=== PATIENT | female | born 1965 | race Caucasian/White ===

== ENCOUNTER → 2018-01-21 11:10 | Outpatient (CLI) | payer OTHER, SELFPAY ==
[2018-01-21 12:11] LABS: Basophil% 0.7 % (0-1); Eosinophils% 2.4 % (0-5); Hematocrit 42.6 % (37-47); Hemoglobin 14.4 g/dl (12.0-15.0); Lymphocyte % 31.2 % (19-41); Mean Corp Hgb Conc 33.8 g/gl (32-36); Mean Corpuscular Hgb 29.1 pg (27.0-32.0); Mean Corpuscular Volume 86.1 fL (81-99); Mean Platelet Vol. 10.5 fl (6.2-12.0); Monocyte% 6.4 % (0-10); Neutrophil # 4.13 X10^3/uL (2.7-7.7); Neutrophil % 59.2 % (47-70); Platelet Count 284 K/mm3 (150-450); RBC Distribution Width CV 12.5 % (11.6-14.6); RBC Distribution Width SD 38.6 fl (35.1-43.9); Red Blood Count 4.95 M/mm3 (4.2-5.4)
[2018-01-21 12:12] LABS: Absolute Lymphocyte Count 2.18 X10^3/ul (0.83-4.51); Absolute Neutrophil Count 4.1 X10^3/uL (2.0-7.7); Basophil# 0.05 X10^3/uL; Eosinophil# 0.17 X10^3/uL; Lymphocyte # 2.18 X10^3/ul (4.0); Monocyte# 0.45 X10^3/uL
[2018-01-21 12:17] LABS: POSITIVE COUNT NO; POSITIVE DIFFERENTIAL NO; POSITIVE MORPHOLOGY NO
[2018-01-21 12:37] LABS: Anion Gap 8 (5-15); BUN 10 mg/dL (7-18); BUN/Creat Ratio 14.5 RATIO (10-20); Calcium,Total 9.2 mg/dL (8.5-10.1); Chloride 102 mmol/L (98-107); Cholesterol 250 mg/dL (200); Creatinine, Serum 0.69 mg/dL (0.55-1.02); EST Glomerular Filtration Rate 94 mL/min (>60); Est Glom Filt Rate - Afr Amer 114 mL/min (>60); Glucose 122 mg/dL (74-106); High Density Lipoprotein 61 mg/dL; Potassium 3.7 mmol/L (3.5-5.1); Sodium Level 141 mmol/L (136-145); Thyroid Stim Hormone (TSH) 1.16 uIU/mL (0.358-3.74); Triglycerides 153 mg/dL; Very Low Density Lipoprotein 31 mg/dL (5-40)
--- NOTE | 2018-01-21 16:53 | BI_ITS ---
MAMMOGRAPHY - BILATERAL SCREENING REASON FOR EXAM: Female, 52 years old. Routine annual screening examination. PERTINENT HISTORY: Non-contributory. History of colorectal carcinoma. TECHNIQUE: Digital bilateral breast rei (3D mammographic acquisition) in the CC and MLO projections. 2-D mediolateral oblique (MLO) and craniocaudad (CC) views of both breasts were obtained. CAD: Full Field Digital Mammography with Computer Added Detection was performed. COMPARISON: Comparison is made with prior study dated November 29, 2016 and September 26, 2015. FINDINGS: Breast Composition: The breasts are heterogeneously dense, which may obscure small masses. There are no dominant masses or suspicious calcifications. No other significant abnormalities are identified. There has been no significant change since the prior study. BI/SCREENING MAMM (CAD), BILAT IMPRESSION: Stable bilateral screening mammogram. Yearly follow-up mammogram recommended. (A) ASSESSMENT CATEGORY: BIRADS Category 1: Negative. A letter regarding these results will be sent to the patient by the facility within 30 days. Approximately 10% of breast cancers are not detected by mammography. A normal mammogram should not delay biopsy of a clinically suspicious abnormality. [id number] Electronically Signed: Darell Hernandez MD at 11:08 EDT Tel [phone], Service support ,
[2018-01-24 07:49] LABS: Carcinoembryonic Antigen 1.7 ng/mL (0.0-4.7)
== END ==
PROVIDERS: Family Provider Family Medicine; PCP Family Medicine; Visit Provider Family Medicine
DX: Z00.00 Encounter for general adult medical examination without abnormal findings (principal); Z12.31 Encounter for screening mammogram for malignant neoplasm of breast; C19 Malignant neoplasm of rectosigmoid junction; M17.12 Unilateral primary osteoarthritis, left knee
CPT/HCPCS: 36415; 77063; 77067; 80048; 80061; 82378; 84443; 85025

== ENCOUNTER → 2018-06-20 16:13 | Outpatient (CLI) | payer OTHER, SELFPAY ==
--- NOTE | 2018-06-20 16:20 | MRI_ITS ---
STUDY: MRI LEFT KNEE REASON FOR EXAM: Female, 53 years old. Knee pain and limited range of motion. Castro's cyst. Surgery 2006 for meniscal tear. TECHNIQUE: Standardized fat and water weighted pulse sequences were obtained in all 3 orthogonal planes. COMPARISON: None. FINDINGS: There is moderate narrowing of the medial compartment. Mild medial spurring is present. Patient is status post partial meniscectomy by history. Signal abnormality in the outer third of the meniscus extending to the superior articular surface is suspicious for a meniscal tear measuring approximately 1 cm. There is diffuse, greater than 50% thickness articular cartilage loss of the medial femorotibial compartment. Normal medial femoral condyle and tibial plateau. Normal medial collateral ligamentous complex (MCL). Normal distal semimembranosus, gracilis and semitendinosus tendons. Normal lateral meniscus. Normal hyaline cartilage of the lateral femorotibial compartment. Normal lateral femoral condyle and tibial plateau. Normal proximal tibiofibular articulation. Normal lateral collateral (fibular) ligament. Normal popliteus tendon. Normal biceps femoris tendon. There is edema and loss of definition of the of the ACL fascicles, producing a celery stick appearance proximally, with preservation of the continuity of fibers, consistent with mucoid cystic degeneration. Less likely, this may represent ACL sprain. Normal posterior cruciate ligament (PCL). There is mild medial patellar subluxation. Mild degenerative spurring of the patella and anterior femur is noted. There is mild fissuring of the trochlear cartilage. Normal medial and lateral patellar retinaculum. Normal quadriceps tendon. Normal patellar tendon. Normal Hoffa's fat pad. There is a moderate joint effusion. There is a 1.8 x 3.1 x 7.3 cm septated popliteal cyst. The soft tissues are unremarkable. The otherwise visualized osseous structures are unremarkable. MRI/Lower Ext Joint Only (Routine) IMPRESSION: 1. Small medial meniscal tear superimposed on prior partial meniscectomy. 2. Mucoid change of the ACL is favored over sprain. 3. Large popliteal cyst. 4. Joint effusion. 5. Fissuring of the trochlear cartilage. 6. 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 Electronically Signed: Alicja Fonseca MD at 22:02 EST Tel , Service support ,
== END ==
PROVIDERS: Family Provider Family Medicine; PCP Family Medicine; Referring Provider Chiropractor; Visit Provider Chiropractor
DX: M71.22 Synovial cyst of popliteal space [Baker], left knee (principal)
CPT/HCPCS: 73721

== ENCOUNTER → 2018-08-25 15:42 | Outpatient (CLI) | payer OTHER, SELFPAY | PROVIDERS: Family Provider Family Medicine; PCP Family Medicine; Referring Provider Family Medicine; Visit Provider Family Medicine | DX: R39.9 Unspecified symptoms and signs involving the genitourinary system (principal) | CPT/HCPCS: 87086; 87088; 87186 ==

== ENCOUNTER → 2018-10-02 16:18 | Outpatient (CLI) | payer OTHER, SELFPAY ==
--- NOTE | 2018-10-02 16:32 | MRI_ITS ---
STUDY: MRI BRAIN WITH AND WITHOUT CONTRAST REASON FOR EXAM: Female, 53 years old. Migraine with slurred speech TECHNIQUE: Standardized multiplanar fat and water weighted pulse sequences were obtained. Gadavist 9 IV was administered for the contrast portion of the examination. COMPARISON: MRI of the brain on January 28, 2014 FINDINGS: Moderate periventricular white matter disease without evidence for acute infarct. There appears to be an old lacunar infarct in the body of the right caudate nucleus. There is also suggestion of subtle ischemic changes within the left ventrolateral aspect of the midbrain or cerebral peduncle Normal bilateral basal ganglia. Normal thalami. There is no extra-axial fluid accumulation. Normal flow voids within the major intracranial circulation suggesting patency by spin echo criteria except for hypoplastic right vertebral artery. Normal venous enhancement. There is no enhancing intra-axial or extra-axial abnormality. Normal sella turcica, pituitary gland, infundibular stalk, optic chiasm and hypothalamus. Normal tectal plate and pineal gland. Normal solitario and medulla. Normal cerebellum. Normal basal cisterns. Normal bilateral temporal bones. Normal bilateral internal auditory canals. No demonstrated orbital abnormality, within the constraints of a routine brain study. Small mucous retention cyst in right maxillary sinus. Minor mucosal thickening of the ethmoid air cells. Normal calvarium and skull base. Normal visualized soft tissue structures. Normal visualized upper cervical spine. Findings are similar to that seen previously except for the lesion in the left cerebral peduncle MRI/Brain W/WO Contrast IMPRESSION: Moderate periventricular white matter disease of indeterminate significance although likely small vessel ischemic changes in patient of this age although demyelinating disease not entirely excluded.. No evidence for acute infarct. Apparent old lacunar infarct of the body of the right caudate nucleus. Probable chronic ischemic changes in the left cerebral peduncle No enhancing lesions following contrast administration Electronically Signed: Theron Concepcion MD at 23:57 EST , Service support ,
== END ==
PROVIDERS: Family Provider Family Medicine; PCP Family Medicine; Referring Provider Family Medicine; Visit Provider Family Medicine
DX: R47.89 Other speech disturbances (principal)
CPT/HCPCS: 70553; A9585

== ENCOUNTER → 2018-10-29 12:20 | Outpatient (CLI) | payer OTHER, SELFPAY ==
[2018-10-29 12:48] LABS: Mucous, Urine 0 SEEN /hpf (<or=2+)
[2018-10-29 13:25] LABS: Color, Urine Amber (Yellow); Glucose, Dipstick Normal (Normal); Ketone-Dipstick Negative (Negative); Leukocyte Esterase-Dipstick 500 /ul (Negative); Nitrite-Dipstick Positive (Negative); Occult Blood-Urine 150 /ul (Negative); Protein-Dipstick 100 mg/dl (Negative); Urine Clarity Sl. Cloudy (Clear); Urine Urobilinogen 8 mg/dl (Normal)
[2018-10-29 13:27] LABS: Urine Bilirubin Dipstick 3 mg/dL (Negative)
[2018-10-29 13:32] LABS: Bacteria 1+ /hpf (None Seen); Red Blood Cells-Urine 10-25 SEEN /hpf (0-5); Squamous Epithelial Cells - UA 0-5 SEEN /hpf (5-10); White Blood Cells 25-50 SEEN /hpf (0-5)
== END ==
PROVIDERS: Family Provider Family Medicine; PCP Family Medicine; Referring Provider Nurse Practitioner Family; Visit Provider Nurse Practitioner Family
DX: R39.9 Unspecified symptoms and signs involving the genitourinary system (principal)
CPT/HCPCS: 81001

== ENCOUNTER → 2018-12-22 | Outpatient (CLI) | payer OTHER, SELFPAY | END | disposition home or self-care (01) | PROVIDERS: Family Provider Family Medicine; PCP Family Medicine; Referring Provider Nurse Practitioner Family; Visit Provider Nurse Practitioner Family | DX: R35.0 Frequency of micturition (principal) | CPT/HCPCS: 87086 ==

== ENCOUNTER → 2019-01-20 | Outpatient (CLI) | payer OTHER, SELFPAY ==
[2019-01-20 10:04] LABS: Absolute Lymphocyte Count 2.62 X10^3/ul (0.83-4.51); Absolute Neutrophil Count 3.7 X10^3/uL (2.0-7.7); Basophil# 0.04 X10^3/uL; Basophil% 0.6 % (0-1); Eosinophil# 0.12 X10^3/uL; Eosinophils% 1.7 % (0-5); Hematocrit 40.2 % (37-47); Hemoglobin 13.3 g/dl (12.0-15.0); Lymphocyte # 2.62 X10^3/ul (4.0); Lymphocyte % 37.8 % (19-41); Mean Corp Hgb Conc 33.1 g/gl (32-36); Mean Corpuscular Hgb 28.7 pg (27.0-32.0); Mean Corpuscular Volume 86.8 fL (81-99); Mean Platelet Vol. 10.6 fl (6.2-12.0); Monocyte# 0.45 X10^3/uL; Monocyte% 6.5 % (0-10); Neutrophil # 3.71 X10^3/uL (2.7-7.7); Neutrophil % 53.4 % (47-70); Platelet Count 289 K/mm3 (150-450); RBC Distribution Width CV 12.5 % (11.6-14.6); RBC Distribution Width SD 38.8 fl (35.1-43.9); Red Blood Count 4.63 M/mm3 (4.2-5.4); White Blood Count 6.9 K/mm3 (4.4-11.0)
[2019-01-20 10:07] LABS: POSITIVE COUNT NO; POSITIVE DIFFERENTIAL NO; POSITIVE MORPHOLOGY NO
[2019-01-20 11:06] LABS: ALB/GLOB Ratio 1.6 RATIO (0.9-2.4); AST(SGOT) 16 U/L (15-37); Alanine Aminotransfer ALT/SGPT 28 U/L (13-56); Albumin, Serum 4.2 g/dL (3.2-5.0); Alkaline Phosphatase 126 U/L (45-117); Anion Gap 4 (5-15); BUN 13 mg/dL (7-18); BUN/Creat Ratio 17.5 RATIO (10-20); Chloride 102 mmol/L (98-107); Cholesterol 251 mg/dL (200); Creatinine, Serum 0.74 mg/dL (0.55-1.02); EST Glomerular Filtration Rate 86 mL/min (>60); Est Glom Filt Rate - Afr Amer 104 mL/min (>60); Ferritin 106 ng/mL (8-252); Globulin 2.7 g/dL (2.2-4.2); Glucose 125 mg/dL (74-106); High Density Lipoprotein 65 mg/dL; Potassium 4.1 mmol/L (3.5-5.1); Protein, Total 6.9 g/dL (6.4-8.2); Sodium Level 137 mmol/L (136-145); Thyroid Stim Hormone (TSH) 1.68 uIU/mL (0.358-3.74); Triglycerides 150 mg/dL; Very Low Density Lipoprotein 30 mg/dL (5-40)
[2019-01-20 12:39] LABS: Microalbumin:Creatinine Ratio 97.6 mg/g CRE (<30 mg/g CRE)
== END | disposition home or self-care (01) ==
LOC: MFPLAB 08:02
PROVIDERS: Family Provider Family Medicine; PCP Family Medicine; Referring Provider Family Medicine; Visit Provider Family Medicine
DX: D50.9 Iron deficiency anemia, unspecified (principal); R73.01 Impaired fasting glucose; I10 Essential (primary) hypertension
CPT/HCPCS: 36415; 80053; 80061; 82043; 82570; 82728; 84443; 85025

== ENCOUNTER → 2019-01-26 | Outpatient (CLI) | payer OTHER, SELFPAY ==
--- NOTE | 2019-01-26 17:08 | MRI_ITS ---
HISTORY: Stroke. TIA. Z 86.73 Technique: Sagittal T1, coronal T2, and many axial series were obtained through the brain. Following the uneventful administration of 18 mL of Dotarem axial and coronal T1 post gadolinium series were obtained through the brain. 12 series. 327 images. Findings: Trace brain atrophy. No acute ischemia. No acute intracranial hemorrhage. No masses or herniations. Globes and orbits are normal. Paranasal sinuses and mastoid air cells are free of disease. There are no masses, herniations, nor deviations. No enhancing lesions are present within the brain. MRI/Brain W/WO Contrast IMPRESSION: Normal. at 0549 Reported and signed by: Jose Bah MD Electronically Signed: Jose Bah MD at 5:48 EDT Tel , Service support ,
== END | disposition home or self-care (01) ==
LOC: MRI 16:51
PROVIDERS: Family Provider Family Medicine; PCP Family Medicine; Referring Provider Psychiatry & Neurology Neurology; Visit Provider Psychiatry & Neurology Neurology
DX: Z86.73 Personal history of transient ischemic attack (TIA), and cerebral infarction without residual deficits (principal)
CPT/HCPCS: 70553; A9575

== ENCOUNTER → 2019-01-26 | Outpatient (CLI) | payer OTHER, SELFPAY ==
[2019-01-26 08:15] LABS: Mucous, Urine 0 SEEN /hpf (<or=2+); Red Blood Cells-Urine 0 SEEN /hpf (0-5)
[2019-01-26 10:18] LABS: Color, Urine Yellow (Yellow); Glucose, Dipstick Normal (Normal); Ketone-Dipstick Negative (Negative); Leukocyte Esterase-Dipstick 100 /ul (Negative); Nitrite-Dipstick Negative (Negative); Occult Blood-Urine Negative /ul (Negative); Protein-Dipstick Negative (Negative); Specific Gravity, Urine 1.015 (1.002-1.030); Urine Bilirubin Dipstick Negative (Negative); Urine Clarity Sl. Cloudy (Clear); Urine Urobilinogen Normal (Normal)
[2019-01-26 10:25] LABS: Bacteria 2+ /hpf (None Seen); Squamous Epithelial Cells - UA 0-5 SEEN /hpf (5-10); White Blood Cells 10-25 SEEN /hpf (0-5)
== END | disposition home or self-care (01) ==
LOC: LABSPEC 08:13
PROVIDERS: Family Provider Family Medicine; PCP Family Medicine; Referring Provider Family Medicine; Visit Provider Family Medicine
DX: R39.15 Urgency of urination (principal)
CPT/HCPCS: 81001

== ENCOUNTER → 2019-01-30 | Outpatient (CLI) | payer OTHER, SELFPAY ==
--- NOTE | 2019-01-30 13:57 | CDU_ITS ---
Reason For Study: Numbness Rt. Velocities/BP Lt. Velocities/BP Prox CCA 93/18.6 cm/sec. Prox CCA 122.9/17 cm/sec. Mid CCA 83.9/21.3 cm/sec. Mid CCA 113.8/18.8 cm/sec. Dist CCA 72.1/22.6 cm/sec. Dist CCA 84.6/17 cm/sec. Prox ICA 61.9/15.7 cm/sec. Prox ICA 46.5/15.7 cm/sec. Mid ICA 70.6/25.6 cm/sec. Mid ICA 76.1/28.9 cm/sec. Dist ICA 96/36.6 cm/sec. Dist ICA 80.6/31.1 cm/sec. Rt. ICA/CCA = 1.1. Lt. ICA/CCA = 0.7. Prox ECA 79.9/8.2 cm/sec. Prox ECA 92.5/7.7 cm/sec. Rt. Vert. 50.7/7.3 cm/sec. Lt. Vert. 48.2/17.7 cm/sec. Right Extracranial There is intimal thickening but no significant atherosclerotic plaque noted in the right common carotid artery. There is homogeneous, smooth atherosclerotic plaque noted in the right internal carotid artery. There is no significant atherosclerotic plaque noted in the right external carotid artery. Antegrade flow is noted in the right vertebral artery. Left Extracranial There is intimal thickening but no significant atherosclerotic plaque noted in the left common carotid artery. There is intimal thickening but no significant atherosclerotic plaque noted in the left internal carotid artery. There is no significant atherosclerotic plaque noted in the left external carotid artery. Antegrade flow is noted in the left vertebral artery. Procedure Carotid Duplex [id number]. Exam performed in department. Interpretation Summary There is < 50% stenosis in bilateral extracranial ICA based on velocity criteria. There is antegrade flow in bilateral vetebral arteries. Ordering Physician: Girma Saxena Referring Physician: Guerrero Vargas MD Performed By: Miracle Ramirez, RVT
== END | disposition home or self-care (01) ==
LOC: CVS 13:55
PROVIDERS: Family Provider Family Medicine; PCP Family Medicine; Referring Provider Psychiatry & Neurology Neurology; Visit Provider Psychiatry & Neurology Neurology
DX: R20.0 Anesthesia of skin (principal); R20.2 Paresthesia of skin; Z86.73 Personal history of transient ischemic attack (TIA), and cerebral infarction without residual deficits
CPT/HCPCS: 93880

== ENCOUNTER → 2019-02-02 | Outpatient (CLI) | payer OTHER, SELFPAY ==
--- NOTE | 2019-02-02 16:32 | BI_ITS ---
MAMMOGRAPHY - BILATERAL SCREENING 3-D TOMOSYNTHESIS REASON FOR EXAM: Female, 53 years old. Bilateral Screening 3-D tomosynthesis PERTINENT HISTORY: No significant family history. TECHNIQUE: 2-D mammograms and 3-D Tomosynthesis of the breast (s) were performed. CAD was performed. COMPARISON: January 21, 2018, November 29, 2016 FINDINGS: The breast composition is almost entirely fat. Scattered benign calcifications are seen. No dense spiculated masses or suspicious microcalcifications are identified. No architectural distortion is identified. There is no skin thickening or retraction. There has been no significant change since the prior study. BI/SCREEN MAMM (CAD) W/LILLI BILAT IMPRESSION: No mammographic signs of malignancy. Routine yearly mammograms recommended. ASSESSMENT CATEGORY: BIRADS Category 2: Benign. A letter regarding these results will be sent to the patient by the facility within 30 days. FOLLOW UP RECOMMENDATION: Yearly follow up mammogram recommended. (A) Approximately 10% of breast cancers are not detected by mammography. A normal mammogram should not delay biopsy of a clinically suspicious abnormality. Electronically Signed: Obey Coffman MD at 11:46 EDT , Service support ,
== END | disposition home or self-care (01) ==
LOC: OPBI 02-03 07:41
PROVIDERS: Family Provider Family Medicine; PCP Family Medicine; Referring Provider Family Medicine; Visit Provider Family Medicine
DX: Z12.31 Encounter for screening mammogram for malignant neoplasm of breast (principal)
CPT/HCPCS: 77063; 77067

== ENCOUNTER → 2019-04-29 07:31 | Outpatient (CLI) | payer OTHER, SELFPAY ==
--- NOTE | 2019-04-29 10:04 | NEURO ---
NCS and/or EMG Patient Report Ordering Doctor: Girma Saxena DATE OF SERVICE: 04/29/19 This is a right upper extremity EMG and nerve conduction study performed on this 54-year-old female with a history of constant abnormal sensations at the tip of her right index finger and intermittent paresthesias in all of her fingers especially her thumb on the right. She is healthy otherwise. Right upper extremity sensory motor nerve conduction studies performed demonstrating prolongation of the median motor and sensory distal latency with preservation of conduction velocities and amplitudes. The ulnar motor and sensory and radial sensory responses are normal. The median and ulnar F-wave latencies are intact. Right upper extremity needle electromyography is performed. Muscles evaluated included the abductor pollicis brevis, first dorsal interosseous, brachioradialis, biceps, triceps and deltoid muscles. All muscles demonstrated normal insertional activity with absence of pathologic spontaneous activity. Motor unit potential recruitment pattern and amplitude is normal in all muscles tested. Impression: Abnormal electrophysiologic study of the right upper extremity consistent with mild to moderate carpal tunnel syndrome at the right wrist. Dictated using [email or web address] software, not proofread
== END ==
PROVIDERS: Family Provider Family Medicine; PCP Family Medicine; Referring Provider Psychiatry & Neurology Neurology; Visit Provider Psychiatry & Neurology Neurology
DX: R20.0 Anesthesia of skin (principal); R20.2 Paresthesia of skin; Z86.73 Personal history of transient ischemic attack (TIA), and cerebral infarction without residual deficits
CPT/HCPCS: 95886; 95910

== ENCOUNTER → 2019-05-12 08:47 | Outpatient (CLI) | payer OTHER, SELFPAY ==
--- NOTE | 2019-05-12 08:50 | RAD_ITS ---
STUDY: X-RAY - LUMBAR SPINE REASON FOR EXAM: Female, 54 years old. Pain TECHNIQUE: 5 view(s) of the lumbar spine were obtained. COMPARISON: None FINDINGS: There is no evidence of fracture or dislocation in the lumbar spine. There are mild degenerative changes noted throughout the lumbar spine with disc space narrowing and facet hypertrophy. There is grade 1 anterolisthesis of L3 with respect to L4. There are no significant degenerative changes. RAD/L/S Spine Min 4 Views IMPRESSION: No fracture or dislocation in the lumbar spine. Mild degenerative changes. Grade 1 anterolisthesis of L3 with respect to L4. Electronically Signed: Frank Green, at 17:02 EDT Tel , Service support ,
== END ==
LOC: MTLAB 08:48 → MTRAD 08:49
PROVIDERS: Family Provider Family Medicine; PCP Family Medicine; Referring Provider Family Medicine; Visit Provider Family Medicine
DX: M54.9 Dorsalgia, unspecified (principal); G89.29 Other chronic pain
CPT/HCPCS: 72110

== ENCOUNTER 2019-05-27 16:30 | Outpatient (RCR) | payer OTHER, SELFPAY ==
--- NOTE | 2019-02-26 11:51 | HP.PTEVAL_ITS ---
Patient's Visit Information VIRI CHERRY is a 54 year old F referred to Physical Therapy by RISSA COLEMAN with a diagnosis of S/P ARTHROSCOPIC SURGERY OF RIGHT KNEE. Date of Evaluation: 02/26/19 Physical Therapist: Cristhian Preston, PT, Cert MDT, OCS - Visit Plan Frequency: 2x /Week Duration: 6 Weeks Plan: PT INTERVENTIONS AROM KNEE FLEXION ,FLEXABLITY HAMSTRINGS,PRE'S QUADS/HAMS/HIP,. NUSTEP /BIKE,CP - Subjective Findings: This 54 y/o female presents to physical therapy with s/p arthroscopic of right knee pain on February [address] Veloz at [facility]. Patient d/c no crutches with WBAT. Patient had knee pain year . Dr did x-rays seen DR with surgery minor menisectomy . Patient has stiffness soreness with inactivity and extending walking standing. patient able to modfify squatting ,unable to kneel ing. Stairs has some difficulty occassionall one step at time. Denies parathesia/tingling. Patient pain affects QOL and function. Patient surgery affects job demands and housework tasks. SOCIAL: . 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 GAIT: normal cadnece reciprocal pattern mild decrease stance time. EDEMA: joint line 49.5cm. AROM: right knee flexion 10- 120 degrees supine knee flexion,left knee supine flexion 0-125 degrees. MMT: quads/hams 4-/5,hip abd/extension 4-/5,hip flexion 4-/5,ankle 4/5. FLEXABILITY: hams min tight. STAIRS: alternating one with rail - Goals Goal 1:: Independant with HEP Goal Time Frame: 4-6 Weeks Goal 2:: Patient to increase strength quads/hams/hip 4/5 to improve function and strength. Goal Time Frame: 4-6 Weeks Goal 3:: Patient to incease AROM 0-125 supine knee flexion to improve function with gait/stairs. Goal Time Frame: 4-6 Weeks Goal 4:: Patient normalize gait Goal Time Frame: 4-6 Weeks Goal 5:: Patient to improve LFES score by 5-10 points to improve QOL. Goal Time Frame: 2-4 Weeks - Rehabilitation Potential Physical Therapy Diagnosis: This patient underwent s/p arthroscopic knee with decrease ROM,strength and stairs and impairs gait and function thus benifit from skilled PT. Rehabilitation Potential: Good - Anticipated Interventions Patient/Client Instruction: Educate patient on: Condition, Plan of Care For the Purpose of:: To decrease pain, To increase ROM, To improve muscle performance and motor function, To increase tolerance to activity/condition/position, To improve ability of physical actions for home/community/work/leisure, To improve health of tissue, To decrease soft tissue restriction, To improve ability to perform tasks related to life management Therapeutic Exercise to Include: Strength training, Balance training, Postural training, Flexibilty training, Active ROM For the Purpose of:: To decrease pain, To increase ROM, To improve muscle performance and motor function, To improve ability to perform ADL's, To increase tolerance to activity/condition/position, To improve ability of physical actions for home/community/work/leisure, To improve gait and locomotor functions, To improve balance, To improve ability to perform tasks related to life management TENS: Yes IF ES: Yes Cryotherapy (ice pack, ice massage): Yes For the Purpose of:: To decrease pain, To decrease swelling/inflammation, To improve nutrient delivery to tissue, To increase oxygenation perfusion, To improve health of tissue, To decrease soft tissue restriction Thank you for the opportunity to evaluate your patient. For Medicare and Medicare HMO plans, please review the plan of care and approve it. It will need to be FAXED BACK to us at [phone] for Medicare purposes. For Medicare only, by signing this I certify the plan of care. Please let me know if there are questions or concerns regarding this plan of care. Physician Signature: Date:
--- NOTE | 2019-03-26 10:29 | HP.PTEVAL2_ITS ---
Patient's Visit Information VIRI CHERRY is a 54 year old F referred to Physical Therapy by RISSA COLEMAN with a diagnosis of LEFT KNEE PAIN,RIGHT KNEE PAIN ,DORSALGIA. Date of Evaluation: 03/25/19 Physical Therapist: Cristhian Preston, PT, Cert MDT, OCS - Visit Plan Frequency: 2x /Week Duration: 4 Weeks Plan: PATIENT HAD RIGHT KNEE MENISECTOMY FEBRUARY 13 ,BUT HAS KNEE DIAGNOSIS WITH DORSALGIA,LEFT KNEE PAIN. PT INTERVENTIONS ROM KNEE ,FLEXABILITY ,PRE'S QUAD/HAMS/HIP ,FUNCTION STRENGTHENING,POSTURAL EX'S, MODALTIES - Subjective Findings: This 54 y/o female presents to physical therapy wity left knee pain,right knee pain and low back pain. Pateint is being seen for PT for right knee meniscectomy. Patient seen DR. Vargas for [facility] physical .Patient had knee arthroscopic menisectomy Aug 2018. Patient did'nt have PT for left knee ,thus has current ROM limitations and weakness. Patient noticed left L-S pain mid February after surgery with right knee ,pain is mre noticble with walking ,standing . Alleviating factors bending,sitting.Coughing /sneezing -. Denies parathesia/tingling. Bowel bladder -. Sleeping good at night. Patient has pain with sqautting ,stairs descending . 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 SOCAIL: . 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 GAIT: receprocal pattern. STAIRS: alternating with rail. NEURO: denies parathesia/tingling,reflexes L3-4,L4-5,L5-S1 2/3. SYMMTRIES: align. PALPATION: tender SI. FLXABLITY: hams min tight. LUMBAR ROM: flexion WNL,extension MIN loss,side gides min loss. AROM: left knee supine flexion 0-120,right 0-130 degrees. MMT:quads/hams 4/5,hip flexion 4-/5,ankle 4/5 ,hip abd 4-/5,hip extension 4-/5 - Special Tests Slump test left side: Negative Slump test right side: Negative Left Straight Leg Raise: Negative Right Straight Leg Raise: Negative Flexion - Mechanical Response: No effect Flexion - Symptoms During Testing: No effect Flexion - Symptoms After Testing: No effect Extension - Mechanical Response: No effect Extension - Symptoms During Testing: No effect Extension - Symptoms After Testing: No effect Right Side Glides - Mechanical Response: No effect Right Side [place] - Symptoms During Testing: No effect Right Side [place] - Symptoms After Testing: No effect Left Side [place] - Mechanical Response: No effect Left Side [place] - Symptoms During Testing: No effect Left Side [place] - Symptoms After Testing: No effect - Goals Goal 1:: Independant with HEP Goal Time Frame: 4-6 Weeks Goal 2:: Patient decrease symptoms in bilateral knee pain and left lumbar /SI by 70 % or greater to improve funcion. Goal Time Frame: 4-6 Weeks Goal 3:: Patient increase AROM knee left 0-130 degrees and lumbar ROM for function of recovery. Goal Time Frame: 4-6 Weeks Goal 4:: Pateint improve back owestry score by 5 points to improve QOL. Goal Time Frame: 4-6 Weeks Goal 5:: Patient to improve ablity bto perform ADL'S and job demands with min limitations Goal Time Frame: 4-6 Weeks - Rehabilitation Potential Physical Therapy Diagnosis: Pateint has had right menisectomy ,then last year left menisectomy but left keen pain has became progressively worse with pain and stiffness as well as altered gait pattern causing pain left SI impairs ADL's with walking ,standing stairs. Rehabilitation Potential: Good - Anticipated Interventions Patient/Client Instruction: Educate patient on: Condition, Plan of Care For the Purpose of:: To decrease pain, To increase ROM, To improve muscle performance and motor function, To improve ability to perform ADL's, To increase tolerance to activity/condition/position, To decrease level of supervision to perform tasks, To improve health of tissue, To decrease soft tissue restriction, To increase flexibility/ROM, To reduce risk of recurrence, To improve ability to perform tasks related to life management Therapeutic Exercise to Include: Strength training, Postural training, Flexibilty training, Passive ROM, Active ROM, Dynamic Lumbar Stabilization For the Purpose of:: To decrease pain, To increase ROM, To improve nutrient delivery to tissue, To increase oxygenation perfusion, To improve muscle performance and motor function, To improve ability of physical actions for home/community/work/leisure, To improve health of tissue, To decrease soft tissue restriction, To increase flexibility/ROM, To reduce risk of recurrence, To improve ability to perform tasks related to life management TENS: Yes IF ES: Yes Cryotherapy (ice pack, ice massage): Yes Thermo therapy (hot pack): Yes Ultrasound (thermal/non thermal): Yes For the Purpose of:: To decrease pain, To increase ROM, To improve nutrient delivery to tissue, To increase oxygenation perfusion, To improve health of tissue, To decrease soft tissue restriction Thank you for the opportunity to evaluate your patient. For Medicare and Medicare HMO plans, please review the plan of care and approve it. It will need to be FAXED BACK to us at [phone] for Medicare purposes. For Medicare only, by signing this I certify the plan of care. Please let me know if there are questions or concerns regarding this plan of care. Physician Signature: Date:
--- NOTE | 2019-03-26 13:57 | HP.PTDCNRP_ITS ---
HP - Discharge Summary (1) - Patient Information VIRI CHERRY was seen in my office for initial evaluation on 02/26/19. The following Plan of Care was established for this patient: Initial Frequency: 2x /Week Initial Duration: 6 Weeks - Anticipated Interventions Patient/Client Instruction: Educate patient on: Condition, Plan of Care For the Purpose of:: To decrease pain, To increase ROM, To improve muscle perf ormance and motor function, To increase tolerance to activity/condition/position, To improve ability of physical actions for home/community/work/leisure, To improve health of tissue, To decrease soft tissue restriction, To improve ability to perform tasks related to life management Therapeutic Exercise to Include: Strength training, Balance training, Postural training, Flexibilty training, Active ROM For the Purpose of:: To decrease pain, To increase ROM, To improve muscle performance and motor function, To improve ability to perform ADL's, To increase tolerance to activity/condition/position, To improve ability of physical actions for home/community/work/leisure, To improve gait and locomotor functions, To improve balance, To improve ability to perform tasks related to life management TENS: Yes IF ES: Yes Cryotherapy (ice pack, ice massage): Yes For the Purpose of:: To decrease pain, To decrease swelling/inflammation, To improve nutrient delivery to tissue, To increase oxygenation perfusion, To improve health of tissue, To decrease soft tissue restriction This patient was last seen in our office 02/21/19. Pertinent comments regarding their Physical therapy will appear below: Patient seen for PT for right knee menisectomy . Pateint doing well AROM 0-130 DEGREES. MMT -quads/hams 4/5. Normal matthew ,Thus is D/C. At this point I will be discontinuing this patient from physical therapy. I would be happy to see this patient again in the future if found appropriate by the physician. Thank you! Cristhian Preston, PT, Cert MDT, OCS
--- NOTE | 2019-05-27 17:05 | HP.PTDS(2)_ITS ---
HP - PT D/C Summary (2) It has been my pleasure to treat VIRI CHERRY under orders from RISSA COLEMAN, for the diagnosis of LEFT KNEE PAIN,RIGHT KNEE PAIN ,DORSALGIA for a total of 11 visit(s). Discharge Date: 05/27/19 Please see the following information for a summary of their discharge status. - Subjective Subjective: Plan to continue with to join [facility] [facility] - Overall Improvement % Improvement: 85 - Objective Objective/Function/Assessment: POSTURE: WFL. GAIT: normal reciprocal. MMT: 4/5 QUAD/HAMS/HIP 4/5. LUMBAR ROM FLEXION WFL ,EXTENSTION MIN LOSS. AROM: 0-130 SUPINE - Goals Patient Goals: Improve Mobility, Improve Function, Decrease Pain, Walk Normal, Maneuver Steps, Improve ROM Goal 1:: Independant with HEP Goal Progress: Goal Met Goal 2:: Patient decrease symptoms in bilateral knee pain and left lumbar /SI by 70 % or greater to improve funcion. Goal Progress: Goal Met Goal 3:: Patient increase AROM knee left 0-130 degrees and lumbar ROM for function of recovery. Goal Progress: Goal Met Goal 4:: Pateint improve back owestry score by 5 points to improve QOL. Goal Progress: Goal Met Goal 5:: Patient to improve ablity bto perform ADL'S and job demands with min limitations Goal Progress: Goal Met - Plan Plan: D/C TO HEP - D/C Information Discharge Comments: HEP If there are questions or concerns regarding this patient's physical therapy, please feel free to call me at [phone]. Thank you for the referral of this patient. Sincerely, Cristhian Preston, PT, Cert MDT, OCS
== END 2019-05-27 19:00 | disposition home or self-care (01) ==
LOC: PT 16:30
PROVIDERS: Family Provider Family Medicine; PCP Family Medicine
DX: Z98.890 Other specified postprocedural states (principal)
CPT/HCPCS: 97014; 97032; 97110; 97162; G0283

== ENCOUNTER → 2019-08-18 15:10 | Outpatient (CLI) | payer OTHER, SELFPAY ==
--- NOTE | 2019-08-18 15:14 | VDLE_ITS ---
Reason For Study: Swelling RIGHT LEFT GSV is normal. CFV is compressible, spontaneous, phasic, CFV is compressible, spontaneous, phasic, competent, and demonstrates normal competent and demonstrates normal augmentation. augmentation. FV is compressible, spontaneous, phasic, competent and demonstrates normal augmentation. POP V is compressible, spontaneous, phasic, competent and demonstrates normal augmentation. T/P Trunk is compressible. PTV is compressible. RT PerV is compressible. Large nonvascularized structure noted in the right proximal calf muscle. Procedure Exam performed in department. A preliminary report was called and/or faxed to [facility]. Interpretation Summary Deep veins of the right lower extremity are patent and compressible segmentally. There is no evidence of right lower extremity deep vein thrombosis. Valvular competence appears intact within the proximal deep venous system on the right . The right great saphenous vein appears patent and compressible segmentally. A large, non-vascular structure is noted in the right proximal calf muscle. This may represent a hematoma or seroma. Clinical correlation is advised. Ordering Physician: Niko Fraser Referring Physician: Guerrero Vargas MD Performed By: Miracle Ramirez RVT
== END ==
PROVIDERS: Family Provider Family Medicine; PCP Family Medicine; Referring Provider Family Medicine; Visit Provider Family Medicine
DX: M79.89 Other specified soft tissue disorders (principal)
CPT/HCPCS: 93971

== ENCOUNTER → 2019-08-24 15:16 | Outpatient (CLI) | payer OTHER, SELFPAY ==
--- NOTE | 2019-08-24 15:30 | US_ITS ---
STUDY: SUPERFICIAL ULTRASOUND - RIGHT LOWER EXTREMITY REASON FOR EXAM: Female, 54 years old. SWELLING IN RT LOWER LEG. Palpable mass. TECHNIQUE: A superficial ultrasound was performed with real-time and static anderson-scale imaging. Color Doppler images provided. COMPARISON: Correlation with MRI dated June 20, 2018. FINDINGS: Multiseptated mixed echo lesion at the region of the popliteal fossa measuring approximately 4.8 cm x 1.5 cm x 1.5 cm. Region of interest measures approximately 6.2 cm x 2.7 cm x 0.8 cm at the mid calf region. Mild skin thickening with soft tissue swelling. Nonvisualized popliteal vein. US/Ext Non Vasc Limited/Soft Tiss IMPRESSION: Complex popliteal fossa/mid calf mixed-signal collection (favoring complex Castro cyst/hematoma given previous MRI imaging over less likely potential neoplasm; recommend MRI follow-up if symptoms/lump persists) Mild skin thickening with soft tissue swelling Nonvisualized popliteal vein (recommend dedicated DVT ultrasound protocol follow up) N.B. : The above information has been verbally conveyed by Guerrero Hanks DO to Nurse Deb Cui RN, on 08/25/2019 09:53:34 (ET). Electronically Signed: Guerrero Hanks DO at 9:55 EST Tel , Service support ,
== END ==
PROVIDERS: Family Provider Family Medicine; PCP Family Medicine; Referring Provider Family Medicine; Visit Provider Family Medicine
DX: M79.89 Other specified soft tissue disorders (principal)
CPT/HCPCS: 76882

== ENCOUNTER → 2019-11-02 16:06 | Outpatient (CLI) | payer OTHER, SELFPAY ==
--- NOTE | 2019-11-02 16:12 | MRI_ITS ---
STUDY: MRI LUMBAR SPINE WITHOUT CONTRAST REASON FOR EXAM: Female, 54 years old. L SCIATICA, L LEG NUMBNESS since 02/2019, hx colon cancer TECHNIQUE: Standardized fat and water weighted pulse sequences were obtained in the sagittal and axial planes. COMPARISON: Lumbar spine x-rays May 12, 2019 FINDINGS: T12-L1: Normal endplates. Normal disc height, hydration and normal morphology. Normal bilateral facet joints. Normal central canal and bilateral lateral recesses. Normal bilateral intervertebral neural foramina. Normal lumbar lordosis. There is no substantial scoliosis. Normal conus medullaris that terminates at T12-L1 L1-2: Normal endplates. Normal disc height, desiccation and minor annular bulge.. Normal bilateral facet joints. Normal central canal and bilateral lateral recesses. Normal bilateral intervertebral neural foramina. L2-3: Normal disc space with desiccation of disc and normal morphology. Normal bilateral facet joints. Normal central canal bilateral recesses and neural foramina L3-4: Grade 1 spondylolisthesis Degenerative endplate changes.. Narrowed disc space with desiccation of the disc and mild bulging disc osteophyte complex. Bilateral facet arthropathy and thickening of ligamenta flava slightly greater on the left. Normal central canal. Moderate bilateral recess and neuroforaminal stenosis slightly greater on the left exaggerated by shortened pedicles L4-5: Normal disc space with desiccation of disc and minor annular bulge in association with moderate-sized broad-based central disc extrusion with superior migration of disc fragment. Bilateral facet arthropathy and thickening of ligamenta flava greater on the right. Moderate narrowing of the central canal left lateral recess and neural foramen. More severe narrowing of the right lateral recess and neural foramen L5-S1: Normal endplates. Normal disc height, desiccation and minimal annular bulge.. Bilateral facet arthropathy.. Normal central canal and bilateral lateral recesses. Normal bilateral intervertebral neural foramina. Normal visualized sacral ala. Normal visualized paraspinous soft tissue structures. Findings a similar to that seen on recent x-rays given differences in imaging technique MRI/Spine Lumbar (Routine) IMPRESSION: No evidence for acute fracture or other significant bony pathology.. Spondylosis and multilevel disc degeneration. Spinal stenosis at L3-4 and L4-5 secondary to disc disease and facet arthropathy with thickening of ligamenta flava exaggerated by shortened pedicles Findings as above Electronically Signed: Therno Concepcion MD at 18:04 EDT , Service support ,
--- NOTE | 2019-11-02 16:12 | MRI_ITS ---
STUDY: MR PELVIS WITHOUT CONTRAST REASON FOR EXAM: Female, 54 years old. L SCIATICA, L LEG NUMBNESS since 02/2019, hx colon cancer TECHNIQUE: Standardized fat and water weighted pulse sequences were obtained in all 3 orthogonal planes. COMPARISON: None. FINDINGS: Normal urinary bladder. Limited evaluation of the GI tract due to motion. No visualization of the uterus. There is no pelvic fluid. There is no pelvic mass lesion or lymphadenopathy. Fatty umbilical hernia partially containing the anterior wall of a loop of colon. Normal visualized pelvic arteries. Grade 1 spondylolisthesis at L3-4. Bulging disc at L4-5 impressing upon the thecal sac. Normal abdominal wall. MRI/Pelvis (Routine) IMPRESSION: Grade 1 spondylolisthesis at L3-4. Bulging disc at L4-5 impressing upon the thecal sac. Umbilical hernia is noted. Evaluation of the GI tract is limited due to motion. Correlate with CT if clinically indicated. Electronically Signed: Ross Gaviria DO at 18:26 EDT Tel [phone], Service support ,
== END ==
PROVIDERS: PCP Family Medicine; Referring Provider Family Medicine; Visit Provider Family Medicine
DX: M43.16 Spondylolisthesis, lumbar region (principal); K42.9 Umbilical hernia without obstruction or gangrene; M48.061 Spinal stenosis, lumbar region without neurogenic claudication; M51.26 Other intervertebral disc displacement, lumbar region
CPT/HCPCS: 72148; 72195

== ENCOUNTER → 2019-12-04 09:32 | Outpatient (CLI) | payer OTHER, SELFPAY ==
[2019-12-04 13:12] LABS: ALB/GLOB Ratio 1.4 RATIO (0.9-2.4); AST(SGOT) 17 U/L (15-37); Alanine Aminotransfer ALT/SGPT 36 U/L (13-56); Albumin, Serum 4.3 g/dL (3.2-5.0); Alkaline Phosphatase 127 U/L (45-117); Anion Gap 6 (5-15); BUN 9 mg/dL (7-18); BUN/Creat Ratio 12.7 RATIO (10-20); Calcium,Total 9.4 mg/dL (8.5-10.1); Chloride 104 mmol/L (98-107); Creatinine, Serum 0.71 mg/dL (0.55-1.02); EST Glomerular Filtration Rate 90 mL/min (>60); Est Glom Filt Rate - Afr Amer 109 mL/min (>60); Glucose 125 mg/dL (74-106); Protein, Total 7.3 g/dL (6.4-8.2); Sodium Level 138 mmol/L (136-145); Thyroid Stim Hormone (TSH) 1.31 uIU/mL (0.358-3.74)
[2019-12-04 13:30] LABS: Microalbumin,Random Urine 16.4 mg/L (NO RANGE EST.); Microalbumin:Creatinine Ratio 48.7 mg/g CRE (<30 mg/g CRE)
== END ==
PROVIDERS: PCP Family Medicine; Referring Provider Family Medicine; Visit Provider Family Medicine
DX: E11.9 Type 2 diabetes mellitus without complications (principal)
CPT/HCPCS: 36415; 80053; 82043; 82570; 84443

== ENCOUNTER → 2020-02-16 16:40 | Outpatient (CLI) | payer OTHER, SELFPAY ==
--- NOTE | 2020-02-16 16:40 | BI_ITS ---
MAMMOGRAPHY - BILATERAL SCREENING REASON FOR EXAM: Female, 54 years old. Routine annual screening examination. PERTINENT HISTORY: Non-contributory. TECHNIQUE: Digital bilateral breast lilli (3D mammographic acquisition) in the CC and MLO projections. 2-D mediolateral oblique (MLO) and craniocaudad (CC) views of both breasts were obtained. CAD: Full Field Digital Mammography with Computer Added Detection was performed. COMPARISON: Comparison is made with prior examination dated February 02, 2019 and January 21, 2018. FINDINGS: Breast Composition: The breasts are heterogeneously dense, which may obscure small masses. There are no dominant masses or suspicious calcifications. No other significant abnormalities are identified. There has been no significant change since the prior study. BI/SCREEN MAMM (CAD) W/LILLI BILAT IMPRESSION: Stable bilateral screening mammogram. Yearly follow-up mammogram recommended. (A) ASSESSMENT CATEGORY: BIRADS Category 1: Negative. A letter regarding these results will be sent to the patient by the facility within 30 days. Approximately 10% of breast cancers are not detected by mammography. A normal mammogram should not delay biopsy of a clinically suspicious abnormality. [id number] Electronically Signed: Darell Hernandez, at 8:04 EDT , Service support ,
== END ==
PROVIDERS: PCP Family Medicine; Referring Provider Family Medicine; Visit Provider Family Medicine
DX: Z12.31 Encounter for screening mammogram for malignant neoplasm of breast (principal)
CPT/HCPCS: 77063; 77067

== ENCOUNTER 2020-02-23 07:10 | Day surgery (SDC) | payer OTHER, SELFPAY ==
--- NOTE | 2020-02-23 07:42 | PCM.HP.STD ---
Problem List (1) Personal history of rectal cancer Status: Acute History of Present Illness Date of Admission: 02/23/20 The patient is a 54 year old F who presents via open access today for colonoscopy with a personal history of colon cancer. Her previous colonoscopy was January 2017. She required a low anterior resection of the colon with a diverting ileostomy. Stage I disease in 2013. She did not require any chemotherapy. She does not have any routine oncology follow-up. She has been feeling well. No chest pain shortness of breath loss of taste. No bright red blood per rectum or melena. No history of DVT. 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 PAD Allergy (Uncoded 02/17/20 11:48) Rash CAUSED A BLISTER TO SKIN Home Medications: Ambulatory Orders Medication Instructions Recorded Aspirin [Aspirin, Baby] 81 mg PO DAILY@0800 10/31/13 metFORMIN HCl [Glucophage] 500 mg PO BIDCM 10/31/13 Clonidine HCl [Catapres] 0.2 mg PO DAILY 02/17/20 Losartan Potassium [Cozaar] 50 mg PO DAILY 02/17/20 Psyllium Husk [Metamucil] 0.52 gm PO DAILY 02/17/20 Rosuvastatin Calcium [Crestor] 5 mg PO QHS 02/17/20 Sitagliptin Phosphate [Januvia] 100 mg PO DAILY 02/17/20 Surgical History: hysterectomy, tonsillectomy, - - Surgery in December 2013 for rectal cancer, reversal of colostomy in February 2014 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 Smoking Status: Never smoker Tobacco Use: Non-smoker - *Family History Maternal History Items: Hypertension, Stroke Paternal History Items: Diabetes, Stroke, - Sibling History Items: No pertinent history Review of Systems Constitutional: Denies: Anorexia HEENT: Denies: Difficulty Swallowing Cardiovascular: Denies: Chest Pain Respiratory: Denies: Cough Gastrointestinal: Denies: Abdominal Pain, Melena Endocrine: Denies: Change in Body Habitus VTE Information - Inpt Only VTE Present on Admission: No Patient Problems: Active and Suspected Problems Personal history of rectal cancer (Acute) - Physical Exam General: Alert, Oriented x3, Cooperative, No apparent distress HEENT: Atraumatic Oral: Moist Mucosa Lungs: Clear to auscultation Cardiovascular: Regular rate, Regular Rhythm Abdomen: Bowel Sounds Present, Soft, Non Tender Extremities: No Calf Tenderness Neurological: - - Normal cognition Psych/Mental Status: Normal Affect Assessment/Plan All Active Problems Personal history of rectal cancer (Acute) Diarrhea (Acute) Syncope (Acute) Rectal cancer (Resolved) Personal history of stage I rectal cancer with no current symptomatology. She is otherwise enjoying good health. She presents via open access today. I propose for her colonoscopy with possible biopsy or polypectomy is indicated. She is aware of the technique, benefit, risks, alternatives. She has had a opportunity to ask and have questions answered. We will proceed as noted. Rex Rivera M.D., F.A.C.S. Procedure Criteria Procedure Type: Elective COVID Risk Discussion: The surgeon/proceduralist and patient have discussed in detail the risk of exposure to and/or potential harm posed by the COVID-19 virus with having a surgery/procedure at this time versus the risk of delaying the surgery/procedure. It is not possible to know either the risk of delaying the surgery or procedure or chance of getting an infection with perfect accuracy, but a joint decision was made between the patient and the surgeon/proceduralist to proceed at this time with the scheduled surgery/procedure as indicated on the consent form.
[2020-02-23 07:51] VITALS: BP 155/82; PULSE 81; RESP 16; TEMP 36.6; O2SAT 97; BMI 29.9
[2020-02-23] MEDS: Lactated Ringers 1,000 ML 100 ML IV (08:07)
--- NOTE | 2020-02-23 08:15 | COLBX_PTH ---
PATIENT: VIRI CHERRY LOC: EN U#:[id number] AGE/SX: 54/F ROOM: RE02/23/[address]: Dr. Rex Rivera MD : 1965 BED: DIS: 02/23/2020 SPEC #: [id number] RECD: 02/23/20 12:26 STATUS: BRENDA SCAR #: [id number] EVE: 02/23/20 08:[address]: Rex Rivera DEPT: SURGICAL PATHOLOGY RECD BY: Missy John ENTERED: 02/23/20 13:23 SP TYPE: COLON BX OTHR DR: Dr. Guerrero Vargas MD Tissues: Rectum, NOS Procedures: Surgery Specimen Level IV HEADER OPERATION: Colonoscopy - open access (MAC) PRE-OP DIAGNOSIS: History rectal CA TISSUE SUBMITTED: Anorectal verge biopsy MICROSCOPIC DIAGNOSIS Anorectal verge biopsy: Squamocolumnar junction mucosa with mild chronic and focal acute inflammation. No evidence of malignancy. AM:jono 02/24/20 COMMENT Reference is made to the patient's rectal biopsy from 10/01/13 ([id number]) in which invasive adenocarcinoma was identified. MICROSCOPIC DESCRIPTION Slides are reviewed. GROSS DESCRIPTION Received in fixative is one container labeled with the patient's name and designated anorectal verge biopsy. The specimen consists of multiple irregular fragments of light guzman soft tissue that in aggregate measure 1 x 0.5 x 0.1 cm. The specimen is totally submitted in one cassette. / SJ:jono 02/23/20 TC:2 CPT: 48043
[2020-02-23 08:35] VITALS: BP 119/73; BP 155/82; PULSE 76; RESP 16; TEMP 36.2; O2SAT 100
--- NOTE | 2020-02-23 08:36 | OP.CCLET_ITS ---
02/23/2020 Guerrero Vargas [address] [place] [address] Re : Colonoscopy procedure for Celestina Ferguson Dear Dr. Vargas This procedure was performed on Sunday, February 23, 2020. My impressions and recommendations are as follows: Impressions : - Hemorrhoids found on perianal exam. - Slight irritation at dentate line. found on digital rectal exam. Biopsies taken at this site - Tortuous colon. - The examination was otherwise normal. Recommendations : - Discharge patient to home. - Resume previous diet. - Continue present medications. - Repeat colonoscopy in 5 years for surveillance. - Telephone my office for pathology results in 1 week. My findings are described in the full procedure note, which is enclosed. If I can be of further assistance, please feel free to contact me at Doctor phone number(s): Work: . Sincerely, Rex Rivera MD 02/23/2020 8:35:48 AM This report has been signed electronically.
--- NOTE | 2020-02-23 08:36 | OP.COLON_ITS ---
Patient Name: Celestina Ferguson Procedure Date: 02/23/2020 7:45 AM Date of : 1965 Age: 54 Procedure: Colonoscopy Indications: High risk colon cancer surveillance: Personal history of colon cancer Providers: Rex Rivera MD Referring MD: Guerrero Vargas Medicines: See the Anesthesia note for documentation of the administered medications Patient Profile: Last Colonoscopy: January 2017. Complications: No immediate complications. Procedure: Pre-Anesthesia Assessment: - Prior to the procedure, a History and Physical was performed, and patient medications and allergies were reviewed. The patient's tolerance of previous anesthesia was also reviewed. The risks and benefits of the procedure and the sedation options and risks were discussed with the patient. All questions were answered, and informed consent was obtained. Prior Anticoagulants: The patient has taken no previous anticoagulant or antiplatelet agents. ASA Grade Assessment: II - A patient with mild systemic disease. After reviewing the risks and benefits, the patient was deemed in satisfactory condition to undergo the procedure. After I obtained informed consent, the scope was passed under direct vision. Throughout the procedure, the patient's blood pressure, pulse, and oxygen saturations were monitored continuously. The pediatric colonoscope was introduced through the anus and advanced to the cecum, identified by appendiceal orifice and ileocecal valve. The colonoscopy was performed without difficulty. The patient tolerated the procedure well. The quality of the bowel preparation was good. The ileocecal valve and the appendiceal orifice were photographed. Scope In: 8:16:08 AM Scope Withdrawal Time 0 hours 9 minutes 15 seconds Scope Out: 8:28:55 AM Total Procedure Duration Time 0 hours 12 minutes 47 seconds Findings: Hemorrhoids were found on perianal exam. The digital rectal exam findings include slight irritation at dentate line. Biopsies were taken with a cold forceps in the rectum for histology. The colon (entire examined portion) was moderately tortuous. Advancing the scope required using manual pressure. The exam was otherwise without abnormality. Impression: - Hemorrhoids found on perianal exam. - Slight irritation at dentate line. found on digital rectal exam. Biopsies taken at this site - Tortuous colon. - The examination was otherwise normal. Recommendation: - Discharge patient to home. - Resume previous diet. - Continue present medications. - Repeat colonoscopy in 5 years for surveillance. - Telephone my office for pathology results in 1 week. Procedure Code(s): --- Professional --- 48459, Colonoscopy, flexible; with biopsy, single or multiple Diagnosis Code(s): --- Professional --- Z85.038, Personal history of other malignant neoplasm of large intestine K64.9, Unspecified hemorrhoids Q43.8, Other specified congenital malformations of intestine CPT copyright 2017 [employer]. All rights reserved. The codes documented in this report are preliminary and upon entrepreneurial finance professor review may be revised to meet current compliance requirements. Rex Rivera MD 02/23/2020 8:35:48 AM This report has been signed electronically. Number of Addenda: 0 Note Initiated On: 02/23/2020 7:45 AM
[2020-02-23 08:40] VITALS: BP 128/77; BP 155/82; PULSE 73; RESP 16; O2SAT 100
[2020-02-23 08:45] VITALS: BP 137/77; BP 155/82; PULSE 76; RESP 16; O2SAT 100
[2020-02-23 08:51] VITALS: BP 139/76; BP 155/82; RESP 16; TEMP 36.2; O2SAT 99
[2020-02-23 10:31] VITALS: BP 155/82
== END 2020-02-23 10:32 | disposition home or self-care (01) ==
LOC: EN 07:11 → AC 07:12
PROVIDERS: Anesthesiology; PCP Family Medicine; Referring Provider Family Medicine; Visit Provider Surgery
PROC: 0DJD8ZZ Inspection of Lower Intestinal Tract, Via Natural or Artificial Opening Endoscopic (ICD-10-PCS; CPT 45378; principal; 2020-02-23 08:10)
DX: Z85.048 Personal history of other malignant neoplasm of rectum, rectosigmoid junction, and anus (principal); K64.9 Unspecified hemorrhoids; Q43.8 Other specified congenital malformations of intestine; Z11.59 Encounter for screening for other viral diseases; I10 Essential (primary) hypertension; F41.9 Anxiety disorder, unspecified; K21.9 Gastro-esophageal reflux disease without esophagitis; E78.00 Pure hypercholesterolemia, unspecified; R73.03 Prediabetes; Z78.0 Asymptomatic menopausal state; Z86.73 Personal history of transient ischemic attack (TIA), and cerebral infarction without residual deficits; Z79.82 Long term (current) use of aspirin; Z79.84 Long term (current) use of oral hypoglycemic drugs; Z79.899 Other long term (current) drug therapy
CPT/HCPCS: 45380; 87635; 88305; G2023; J7120; J2405; U0003

== ENCOUNTER 2020-07-13 14:00 | Outpatient (RCR) | payer OTHER, SELFPAY ==
--- NOTE | 2020-05-26 17:01 | HP.PTEVAL_ITS ---
Patient's Visit Information VIRI CHERRY is a 55 year old F referred to Physical Therapy by Dr. Thomas Weiner DO with a diagnosis of Lumbar fusion. Date of Evaluation: 05/26/20 Physical Therapist: Guerrero Pugh, DPT, OCS, CSCS - Visit Plan Frequency: 2x /Week Duration: 4-6 Weeks Plan: 2x/week for 4-6. isometric lumbar strengthening. postural and LE strength progression to HEP. Pt not to work on low back ROM until end of May then gently. Soft tissue mobility LB. ice as needed. Fucntional progression of transfer off floor and put on shoes. - Subjective Had bulging discs adn shifted sideways. 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 Therapy did not hep. Witting was worse. Injections did not help. Therefore had lumbar fusion 05/04/20. Since then has been good i guess Has 1/10 pain and one narcotic per day. Feels more stiff sore around incision to 2/10. L leg has not been hurting. Had a brace corset and wore for a few days. It was uncomfortable and doctor office said she did not have to wear it. Walking program is 20-45 minutes 2x/day and feels OK when done but tired. Sleeping is not bad, last week has been good, she sleeps on her side and mostly 0pain. 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 Steps are no problem. Precautions is to avoid bending and lifting greater than 10# adn no twisting. Basic ADLS are going ok. Uses eligibility examiner to pull up pants. puts socks and shoes on. Otherwise is doing OK. Bathroom and shower I. washes feet. HObbies: Wants to get back to walks and hikes. - Pain LBP Pain Intensity (Out of 10): 1 Pain Intensity Range: 0, 8 - Objective Walks stiff but I, no antalgia today. Trasnitions easily. L hamstring mod tight vs R with -25 90/90 test. - slump and - SLR test. LB AROM max reservations with movement today, only about 10 degrees of ext adn felxion today. LE AROM WNL except L knee flexion limited to about 100 due to previous history. Incision in back is healed well with out signs of redness or seeping. No heat or swelling present. reflexes 2/3 patella and achilles. Sensation WNL to gross light touch in LE. Strength LE ankles 4+, knees 4/5 adn hips abd/ext 4-, flexion 4 B. No pain with LE testing. - Goals Goal 1:: I approp HEP for strength and ROM when allowed by doctor of spine for prison management Goal Time Frame: 4-6 Weeks Goal 2:: Patient have pain 1/10 at worst and intermittent 90% better overall. Goal Time Frame: 4-6 Weeks Goal 3:: Pt put on shoes and scoks without issues or pain. Goal Time Frame: 4-6 Weeks Goal 4:: Oswestry score 10 or less. Goal Time Frame: 4-6 Weeks - Rehabilitation Potential Physical Therapy Diagnosis: Lumbar fusion Rehabilitation Potential: Good - Anticipated Interventions Patient/Client Instruction: Educate patient on: Condition, Plan of Care For the Purpose of:: To decrease pain, To increase ROM, To improve muscle performance and motor function, To increase tolerance to activity/condition/position Therapeutic Exercise to Include: Strength training, Postural training, Flexibilty training, Gait and locomotor training, Neuromotor development, Passive ROM, Active ROM, Dynamic Lumbar Stabilization For the Purpose of:: To decrease pain, To increase ROM, To improve muscle performance and motor function, To increase tolerance to activity/condition/position, To improve ability of physical actions for home/ community/work/leisure Manual Therapy Techniques to Include: Scar massage, Soft tissue mobilization For the Purpose of:: To decrease pain Cryotherapy (ice pack, ice massage): Yes For the Purpose of:: To decrease swelling/inflammation Thank you for the opportunity to evaluate your patient. For Medicare and Medicare HMO plans, please review the plan of care and approve it. It will need to be FAXED BACK to us at [phone] for Medicare purposes. For Medicare only, by signing this I certify the plan of care. Please let me know if there are questions or concerns regarding this plan of care. Physician Signature: Dat e:
--- NOTE | 2020-06-30 16:56 | HP.PTREVAL ---
Dr. Thomas Weiner, DO, It has been my pleasure to treat VIRI CHERRY over the last 9 visits for Lumbar fusion. Please see the progress note below for an update on the physical therapy plan of care! Subjective: Been doing exercises at home religiously. Overall doing better. Able to get off floor now. Pain level not too bad. R LB is worse spot and to 3/10 stiffness. Worse if sits too long. Walking is feeling good. Sleeps well for the most part. Activities at home are close to normal. To doctor 07/26. Objective/Function: Good ext ROM , Min deficits in SB B. Flexion hesitant and hard to get finger to floor. Walks well. Steps reciprocally without rail. Body mechanics and posture fair. VC needed for posture. Overall doing well and appropriate to continue for progression of home strethcing/ROM Plan Plan: weekly x 3 for progression of ROM(yoga flows) and body mechanics exercises. Also lifting exercises for conditioning. 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 Goal Time Frame: 4-6 Weeks Goal Progress: 85% Goal 3:: Pt put on shoes and scoks without issues or pain. Goal Time Frame: 4-6 Weeks Goal Progress: Goal Met Goal 4:: Oswestry score 10 or less. Goal Time Frame: 4-6 Weeks Goal Progress: Goal Met Goal 5:: Lift 25 # comfortably and score 4 on oswestry Goal Time Frame: 2-4 Weeks Goal Progress: NEW GOAL Anticipated Interventions Patient/Client Instruction: Educate patient on: Condition, Plan of Care For the Purpose of:: To decrease pain, To increase ROM, To improve muscle performance and motor function, To increase tolerance to activity/condition/position Therapeutic Exercise to Include: Strength training, Postural training, Flexibilty training, Gait and locomotor training, Neuromotor development, Passive ROM, Active ROM, Dynamic Lumbar Stabilization For the Purpose of:: To decrease pain, To increase ROM, To improve muscle performance and motor function, To increase tolerance to activity/condition/position, To improve ability of physical actions for home/community/work/leisure Manual Therapy Techniques to Include: Scar massage, Soft tissue mobilization For the Purpose of:: To decrease pain Cryotherapy (ice pack, ice massage): Yes For the Purpose of:: To decrease swelling/inflammation Please do not hesitate to contact me at [phone] by phone or if you have questions or concerns regarding this new plan of care! Sincerely, Guerrero Pugh, DPT, OCS, CSCS
--- NOTE | 2020-07-13 14:27 | HP.PTDCSUM ---
It has been my pleasure to treat VIRI CHERRY referred by Dr. Thomas Weiner DO, with the diagnosis of Lumbar fusion for a total of 10 visit(s). Discharge Date: 07/13/20 Please see the following information for a summary of their discharge status. Subjective: Been doing well for the last two weeks. Back to a normal feel. Not much achiness. Doing exercises at home including stretch and strengthen. Ready to be done with PT. Does avoid bending a little bit. LBP Pain Intensity (Out of 10): 0 % Improvement: 90 Objective/Function: Good L/S AROM without pain. Did well with stretches today, no pain. Walking normal. Picks up lifting technique quickly. Doing very well. No further PT required. 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 Goal Progress: 90% Goal 3:: Pt put on shoes and scoks without issues or pain. Goal Progress: Goal Met Goal 4:: Oswestry score 10 or less. Goal Progress: Goal Met Goal 5:: Lift 25 # comfortably and score 4 on oswestry Goal Progress: Progressing Plan: d/c, pt to doctor in two weeks. Willc all if problems. Discharge Comments: Pt to continue via HEP. F/U with dcotors in 2 weeks. If there are questions or concerns regarding this patient's physical therapy, please feel free to call me at [phone]. Thank you for the referral of this patient. Sincerely, Guerrero Pugh, DPT, OCS, CSCS
== END 2020-07-13 19:00 | disposition home or self-care (01) ==
LOC: PT 14:00
PROVIDERS: PCP Family Medicine; Visit Provider Orthopaedic Surgery
DX: Z98.890 Other specified postprocedural states (principal); Z98.1 Arthrodesis status
CPT/HCPCS: 97110; 97161; 97164

== ENCOUNTER 2020-10-27 14:46 | Outpatient (RCR) | payer OTHER, SELFPAY ==
[2020-10-27] MEDS: COVID-19 VACC, MRNA(PFIZER)/PF 30 MCG/0.3 ML SYRINGE IM (13:46)
[2020-11-30] MEDS: COVID-19 VACC, MRNA(PFIZER)/PF 30 MCG/0.3 ML SYRINGE IM (16:11)
== END 2021-01-17 23:59 ==
LOC: IMMUN 14:46
PROVIDERS: PCP Family Medicine; Visit Provider Family Medicine
DX: Z23 Encounter for immunization (principal)
CPT/HCPCS: 0001A; 0002A; 91300

== ENCOUNTER → 2020-11-03 17:39 | Outpatient (CLI) | payer OTHER, SELFPAY ==
--- NOTE | 2020-11-03 17:46 | CT_ITS ---
INDICATION: VARUS DEFORMITY, NOT ELSEWHERE CLASSIFIED, LEFT KNEE -- POLA PROTOCOL EXAMINATION: CT Lower Extremity W/O Contrast Injection TECHNIQUE: Helically acquired images were obtained of the left lower extremity. 2-D reformats were performed by the technologist. A radiation dose optimization technique was used for this scan. IV Contrast dosage and agent: None. COMPARISON: None. FINDINGS: BONES AND ALIGNMENT: No acute fractures. The alignment is anatomic. JOINTS: Mild medial compartment predominant tricompartmental joint space narrowing and osteophytosis of the knee. SOFT TISSUES: No significant soft tissue swelling. CT/Extremity Lower without Contra IMPRESSION: No acute abnormalities. 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 Electronically Signed: Luca Vega MD at 18:38 EDT Tel , Service support ,
== END ==
PROVIDERS: PCP Family Medicine; Referring Provider Specialist; Visit Provider Specialist
DX: M21.162 Varus deformity, not elsewhere classified, left knee (principal)
CPT/HCPCS: 73700

== ENCOUNTER → 2020-11-10 13:28 | Outpatient (CLI) | payer OTHER, SELFPAY ==
--- NOTE | 2020-11-10 13:31 | EKG12_ITS ---
Test Reason : PREOP Blood Pressure : / mmHG Vent. Rate : 103 BPM Atrial Rate : 103 BPM P-R Int : 154 ms QRS Dur : 082 ms QT Int : 348 ms P-R-T Axes : 064 070 054 degrees QTc Int : 455 ms Sinus tachycardia Otherwise normal ECG Confirmed by NELSON GARNER, EDGAR ([id number]), managing editor CHARLINE RYAN ([id number]) on 11/11/2020 10:45:37 AM Referred By: Munir Godinez Confirmed By:EDGAR DAMON MD
[2020-11-10 15:11] LABS: Absolute Lymphocyte Count 3.13 X10^3/uL (0.83-4.51); Absolute Neutrophil Count 5.1 X10^3/uL (2.0-7.7); Basophil# 0.06 X10^3/uL; Basophil% 0.7 % (0-1); Eosinophil# 0.15 X10^3/uL; Eosinophils% 1.7 % (0-5); Hematocrit 42.7 % (37-47); Hemoglobin 13.8 g/dL (12.0-15.0); Lymphocyte # 3.13 X10^3/ul (4.0); Lymphocyte % 34.5 % (19-41); Mean Corp Hgb Conc 32.3 g/dL (32-36); Mean Corpuscular Hgb 28.8 pg (27.0-32.0); Mean Corpuscular Volume 89.1 fL (81-99); Mean Platelet Vol. 10.9 fl (6.2-12.0); Monocyte# 0.61 X10^3/uL; Monocyte% 6.7 % (0-10); NRBC Flagged by Analyzer 0 % (0-5); Neutrophil # 5.09 X10^3/uL (2.7-7.7); Neutrophil % 56.1 % (47-70); Platelet Count 286 K/mm3 (150-450); RBC Distribution Width CV 12.4 % (11.6-14.6); RBC Distribution Width SD 40.6 fl (35.1-43.9); Red Blood Count 4.79 M/mm3 (4.2-5.4); White Blood Count 9.1 K/mm3 (4.4-11.0)
[2020-11-10 15:27] LABS: Hemoglobin A1c 6.6 % (3.8-5.6)
[2020-11-10 15:52] LABS: Anion Gap 7 (5-15); BUN 14 mg/dL (7-18); Calcium,Total 9.4 mg/dL (8.5-10.1); Chloride 102 mmol/L (98-107); Creatinine, Serum 0.74 mg/dL (0.55-1.02); EST Glomerular Filtration Rate 86 mL/min (>60); Est Glom Filt Rate - Afr Amer 104 mL/min (>60); Glucose 122 mg/dL (74-106); Potassium 3.9 mmol/L (3.5-5.1); Sodium Level 141 mmol/L (136-145)
== END ==
PROVIDERS: PCP Family Medicine; Referring Provider Physician Assistant Surgical; Visit Provider Physician Assistant Surgical
DX: Z01.810 Encounter for preprocedural cardiovascular examination (principal); Z01.818 Encounter for other preprocedural examination; E11.9 Type 2 diabetes mellitus without complications
CPT/HCPCS: 36415; 80048; 83036; 85025; 93005; C9803

== ENCOUNTER → 2020-11-10 13:44 | Outpatient (CLI) | payer OTHER, SELFPAY | PROVIDERS: PCP Family Medicine; Referring Provider Specialist; Visit Provider Specialist | DX: Z11.59 Encounter for screening for other viral diseases (principal) | CPT/HCPCS: 87635; U0002 ==

== ENCOUNTER → 2021-03-01 07:12 | Outpatient (CLI) | payer OTHER, SELFPAY ==
--- NOTE | 2021-02-28 16:16 | BI_ITS ---
MAMMOGRAPHY - BILATERAL SCREENING REASON FOR EXAM: Female, 56 years old. Routine annual screening examination. PERTINENT HISTORY: Non-contributory. TECHNIQUE: Digital bilateral breast lilli (3D mammographic acquisition) in the CC and MLO projections. 2-D mediolateral oblique (MLO) and craniocaudad (CC) views of both breasts were obtained. CAD: Full Field Digital Mammography with Computer Added Detection was performed. COMPARISON: Comparison is made with prior study dated 02/16/2020 and 02/02/2019. FINDINGS: Breast Composition: The breasts are heterogeneously dense, which may obscure small masses. There are no dominant masses or suspicious calcifications. No other significant abnormalities are identified. There has been no significant change since the prior study. BI/SCRN MAMM (CAD)W/LILLI BILAT IMPRESSION: Stable bilateral screening mammogram. Yearly follow-up mammogram recommended. (A) ASSESSMENT CATEGORY: BIRADS Category 1: Negative. A letter regarding these results will be sent to the patient by the facility within 30 days. Approximately 10% of breast cancers are not detected by mammography. A normal mammogram should not delay biopsy of a clinically suspicious abnormality. [id number] Electronically Signed: Darell Hernandez MD at 8:47 EDT , Service support ,
== END ==
PROVIDERS: PCP Family Medicine; Referring Provider Family Medicine; Visit Provider Family Medicine
DX: Z12.31 Encounter for screening mammogram for malignant neoplasm of breast (principal)
CPT/HCPCS: 77063; 77067

== ENCOUNTER → 2021-04-25 08:22 | Outpatient (CLI) | payer OTHER, SELFPAY ==
[2021-04-25 10:08] LABS: Absolute Lymphocyte Count 2.42 X10^3/uL (0.83-4.51); Absolute Neutrophil Count 6.3 X10^3/uL (2.0-7.7); Basophil# 0.09 X10^3/uL; Basophil% 0.9 % (0-1); Eosinophil# 0.19 X10^3/uL; Hematocrit 38.6 % (37-47); Hemoglobin 12.8 g/dL (12.0-15.0); Lymphocyte # 2.42 X10^3/ul (0.83-4.51); Lymphocyte % 24.8 % (19-41); Mean Corp Hgb Conc 33.2 g/dL (32-36); Mean Corpuscular Hgb 29.3 pg (27.0-32.0); Mean Corpuscular Volume 88.3 fL (81-99); Mean Platelet Vol. 10.4 fl (6.2-12.0); Monocyte# 0.72 X10^3/uL; Monocyte% 7.4 % (0-10); NRBC Flagged by Analyzer 0 % (0-5); Neutrophil # 6.28 X10^3/uL (2.7-7.7); Neutrophil % 64.5 % (47-70); Platelet Count 227 K/mm3 (150-450); RBC Distribution Width CV 12.4 % (11.6-14.6); RBC Distribution Width SD 40.5 fl (35.1-43.9); Red Blood Count 4.37 M/mm3 (4.2-5.4); White Blood Count 9.7 K/mm3 (4.4-11.0)
[2021-04-25 10:33] LABS: Hemoglobin A1c 6.2 % (3.8-5.6)
[2021-04-25 10:37] LABS: ALB/GLOB Ratio 1.2 RATIO (0.9-2.4); AST(SGOT) 13 U/L (15-37); Alanine Aminotransfer ALT/SGPT 27 U/L (13-56); Albumin, Serum 3.8 g/dL (3.2-5.0); Alkaline Phosphatase 127 U/L (45-117); Anion Gap 6 (5-15); BUN 14 mg/dL (7-18); BUN/Creat Ratio 20.6 RATIO (10-20); Calcium,Total 9.1 mg/dL (8.5-10.1); Chloride 106 mmol/L (98-107); Cholesterol 141 mg/dL (200); Creatinine, Serum 0.68 mg/dL (0.55-1.02); EST Glomerular Filtration Rate 94 mL/min (>60); Est Glom Filt Rate - Afr Amer 114 mL/min (>60); Globulin 3.3 g/dL (2.2-4.2); Glucose 132 mg/dL (74-106); High Density Lipoprotein 70 mg/dL; Potassium 3.9 mmol/L (3.5-5.1); Protein, Total 7.1 g/dL (6.4-8.2); Sodium Level 140 mmol/L (136-145); Triglycerides 76 mg/dL; Very Low Density Lipoprotein 15 mg/dL (5-40)
[2021-04-25 10:50] LABS: Microalbumin,Random Urine 13.8 mg/L (NO RANGE EST.); Microalbumin:Creatinine Ratio 27.3 mg/g CRE (<30 mg/g CRE)
== END ==
PROVIDERS: PCP Family Medicine; Referring Provider Family Medicine; Visit Provider Family Medicine
DX: E11.29 Type 2 diabetes mellitus with other diabetic kidney complication (principal); Z85.048 Personal history of other malignant neoplasm of rectum, rectosigmoid junction, and anus
CPT/HCPCS: 36415; 80053; 80061; 82043; 82570; 83036; 85025

== ENCOUNTER → 2021-12-19 | Outpatient (CLI) | payer OTHER, SELFPAY ==
--- NOTE | 2021-12-18 12:30 | LES_PTH ---
PATIENT: VIRI CHERRY LOC: [facility] U#:[id number] AGE/SX: 56/F ROOM: RE12/19/[address]: Dr. Guerrero Vargas MD : 1965 BED: DIS: 12/19/2021 SPEC #: [id number] RECD: 12/19/21 10:01 STATUS: BRENDA SCAR #: [id number] EVE: 12/18/21 12:[address]: Guerrero Vargas DEPT: SURGICAL PATHOLOGY RECD BY: Johanna Bernal Tissues: Skin of buttock, NOS Procedures: Surgery Specimen Level IV HEADER OPERATION: Shave biopsy right chest PRE-OP DIAGNOSIS: Persistent skin lesion BCC TISSUE SUBMITTED: Right chest wall MICROSCOPIC DIAGNOSIS Right chest wall lesion, shave biopsy: Seborrheic keratosis. GABE:jono 12/20/2021 MICROSCOPIC DESCRIPTION Slides are reviewed. GROSS DESCRIPTION Received in fixative is one container labeled with the patient's name and designated chest skin. The specimen consists of a shave biopsy of guzman-white skin measuring 0.6 x 0.5 x 0.1 cm. The specimen is inked, serially sectioned and submitted entirely in one cassette. / SJ:rg 12/19/2021 TC:1 CPT: 90111
== END | disposition home or self-care (01) ==
LOC: LABSPEC 10:05
PROVIDERS: PCP Family Medicine; Referring Provider Family Medicine; Visit Provider Family Medicine
DX: L82.1 Other seborrheic keratosis (principal)
CPT/HCPCS: 88305

== ENCOUNTER → 2022-03-22 | Outpatient (CLI) | payer OTHER, SELFPAY ==
--- NOTE | 2022-03-22 16:48 | BI_ITS ---
MAMMOGRAPHY - BILATERAL SCREENING REASON FOR EXAM: Female, 57 years old. Routine annual screening examination. PERTINENT HISTORY: Non-contributory. TECHNIQUE: Digital bilateral breast lilli (3D mammographic acquisition) in the CC and MLO projections. 2-D mediolateral oblique (MLO) and craniocaudad (CC) views of both breasts were obtained. CAD: Full Field Digital Mammography with Computer Added Detection was performed. COMPARISON: Comparison is made with prior study dated 02/28/2021. FINDINGS: Breast Composition: The breasts are heterogeneously dense, which may obscure small masses. There are no dominant masses or suspicious calcifications. No other significant abnormalities are identified. There has been no significant change since the prior study. BI/SCRN MAMM (CAD)W/LILLI BILAT IMPRESSION: Stable bilateral screening mammogram. Yearly follow-up mammogram recommended. (A) ASSESSMENT CATEGORY: BIRADS Category 1: Negative. A letter regarding these results will be sent to the patient by the facility within 30 days. Approximately 10% of breast cancers are not detected by mammography. A normal mammogram should not delay biopsy of a clinically suspicious abnormality. [id number] Electronically Signed: Darell Hernandez MD at 17:40 EDT ,
== END | disposition home or self-care (01) ==
LOC: OPBI 03-23 08:15
PROVIDERS: PCP Family Medicine; Visit Provider Family Medicine
DX: Z12.31 Encounter for screening mammogram for malignant neoplasm of breast (principal)
CPT/HCPCS: 77063; 77067

== ENCOUNTER → 2022-05-18 | Outpatient (CLI) | payer OTHER, SELFPAY ==
[2022-05-18 10:09] LABS: ALB/GLOB Ratio 1.2 RATIO (0.9-2.4); AST(SGOT) 17 U/L (15-37); Alanine Aminotransfer ALT/SGPT 33 U/L (13-56); Albumin, Serum 3.9 g/dL (3.2-5.0); Alkaline Phosphatase 141 U/L (45-117); Anion Gap 9 (5-15); BUN 14 mg/dL (7-18); BUN/Creat Ratio 18.5 RATIO (10-20); Calcium,Total 9.2 mg/dL (8.5-10.1); Chloride 105 mmol/L (98-107); Cholesterol 154 mg/dL (200); Creatinine, Serum 0.76 mg/dL (0.55-1.02); EST Glomerular Filtration Rate 83 mL/min (>60); Est Glom Filt Rate - Afr Amer 101 mL/min (>60); Globulin 3.3 g/dL (2.2-4.2); Glucose 150 mg/dL (74-106); High Density Lipoprotein 72 mg/dL; Potassium 3.9 mmol/L (3.5-5.1); Protein, Total 7.2 g/dL (6.4-8.2); Sodium Level 140 mmol/L (136-145); Triglycerides 66 mg/dL; Very Low Density Lipoprotein 13 mg/dL (5-40)
[2022-05-18 10:14] LABS: Hemoglobin A1c 6.5 % (3.8-5.6)
[2022-05-18 10:47] LABS: Microalbumin,Random Urine 17.9 mg/L (NO RANGE EST.)
== END | disposition home or self-care (01) ==
LOC: MFPLAB 08:44
PROVIDERS: PCP Family Medicine; Referring Provider Family Medicine; Visit Provider Family Medicine
DX: E11.29 Type 2 diabetes mellitus with other diabetic kidney complication (principal); I10 Essential (primary) hypertension
CPT/HCPCS: 36415; 80053; 80061; 82043; 82570; 83036

== ENCOUNTER → 2022-11-19 | Outpatient (CLI) | payer OTHER, SELFPAY ==
[2022-11-19 12:41] LABS: ALB/GLOB Ratio 1.5 RATIO (0.9-2.4); AST(SGOT) 21 U/L (15-37); Alanine Aminotransfer ALT/SGPT 34 U/L (13-56); Albumin, Serum 4.3 g/dL (3.2-5.0); Alkaline Phosphatase 122 U/L (45-117); Anion Gap 1 (5-15); BUN 15 mg/dL (7-18); BUN/Creat Ratio 19.9 RATIO (10-20); Calcium,Total 9.2 mg/dL (8.5-10.1); Chloride 106 mmol/L (98-107); Creatinine, Serum 0.75 mg/dL (0.55-1.02); EST Glomerular Filtration Rate 84 mL/min (>60); Est Glom Filt Rate - Afr Amer 101 mL/min (>60); Globulin 2.9 g/dL (2.2-4.2); Glucose 149 mg/dL (74-106); Potassium 3.7 mmol/L (3.5-5.1); Protein, Total 7.2 g/dL (6.4-8.2); Sodium Level 137 mmol/L (136-145)
== END | disposition home or self-care (01) ==
PROVIDERS: PCP Family Medicine; Referring Provider Family Medicine; Visit Provider Family Medicine
DX: E11.29 Type 2 diabetes mellitus with other diabetic kidney complication (principal)
CPT/HCPCS: 36415; 80053

== ENCOUNTER → 2023-05-15 | Outpatient (CLI) | payer OTHER, SELFPAY ==
[2023-05-15 10:49] LABS: ALB/GLOB Ratio 1.2 RATIO (0.9-2.4); AST(SGOT) 24 U/L (15-37); Alanine Aminotransfer ALT/SGPT 43 U/L (13-56); Albumin, Serum 3.8 g/dL (3.2-5.0); Alkaline Phosphatase 121 U/L (45-117); Anion Gap 5 (5-15); BUN 14 mg/dL (7-18); BUN/Creat Ratio 19.1 RATIO (10-20); Calcium,Total 9.1 mg/dL (8.5-10.1); Chloride 105 mmol/L (98-107); Cholesterol 153 mg/dL (200); Creatinine, Serum 0.73 mg/dL (0.55-1.02); EST Glomerular Filtration Rate 86 mL/min (>60); Est Glom Filt Rate - Afr Amer 104 mL/min (>60); Globulin 3.2 g/dL (2.2-4.2); Glucose 144 mg/dL (74-106); High Density Lipoprotein 71 mg/dL; Potassium 3.9 mmol/L (3.5-5.1); Sodium Level 139 mmol/L (136-145); Thyroid Stim Hormone (TSH) 1.44 uIU/mL (0.358-3.74); Triglycerides 72 mg/dL; Very Low Density Lipoprotein 14 mg/dL (5-40)
[2023-05-15 11:20] LABS: Microalbumin,Random Urine 35.8 mg/L (NO RANGE EST.); Microalbumin:Creatinine Ratio 34.1 mg/g CRE (<30 mg/g CRE)
== END | disposition home or self-care (01) ==
PROVIDERS: PCP Family Medicine; Referring Provider Family Medicine; Visit Provider Family Medicine
DX: Z00.00 Encounter for general adult medical examination without abnormal findings (principal); E11.29 Type 2 diabetes mellitus with other diabetic kidney complication; E78.00 Pure hypercholesterolemia, unspecified; I10 Essential (primary) hypertension
CPT/HCPCS: 36415; 80053; 80061; 82043; 82570; 84443

== ENCOUNTER → 2023-12-02 | Outpatient (CLI) | payer OTHER, SELFPAY ==
[2023-12-02 12:21] LABS: ALB/GLOB Ratio 1.3 RATIO (0.9-2.4); AST(SGOT) 22 U/L (15-37); Alanine Aminotransfer ALT/SGPT 43 U/L (13-56); Alkaline Phosphatase 128 U/L (45-117); Anion Gap 6 (5-15); BUN 14 mg/dL (7-18); BUN/Creat Ratio 19.1 RATIO (10-20); Calcium,Total 9.5 mg/dL (8.5-10.1); Chloride 105 mmol/L (98-107); Creatinine, Serum 0.73 mg/dL (0.55-1.02); EST Glomerular Filtration Rate 86 mL/min (>60); Est Glom Filt Rate - Afr Amer 104 mL/min (>60); Globulin 3.1 g/dL (2.2-4.2); Glucose 156 mg/dL (74-106); Potassium 4.1 mmol/L (3.5-5.1); Protein, Total 7.1 g/dL (6.4-8.2); Sodium Level 139 mmol/L (136-145)
[2023-12-02 13:02] LABS: Microalbumin,Random Urine 79.3 mg/L (NO RANGE EST.); Microalbumin:Creatinine Ratio 173.1 mg/g CRE (<30 mg/g CRE)
[2023-12-02 13:08] LABS: Hemoglobin A1c 6.5 % (3.8-5.6)
== END | disposition home or self-care (01) ==
LOC: MFPLAB 09:25
PROVIDERS: PCP Family Medicine; Visit Provider Family Medicine
DX: E11.29 Type 2 diabetes mellitus with other diabetic kidney complication (principal); I10 Essential (primary) hypertension
CPT/HCPCS: 36415; 80053; 82043; 82570; 83036

== ENCOUNTER → 2024-01-13 | Outpatient (CLI) | payer OTHER, SELFPAY ==
--- NOTE | 2024-01-13 14:08 | BI_ITS ---
MAMMOGRAPHY - BILATERAL SCREENING REASON FOR EXAM: Female, 58 years old. Routine annual screening examination. PERTINENT HISTORY: Non-contributory. TECHNIQUE: Digital bilateral breast lilli (3D mammographic acquisition) in the CC and MLO projections. 2-D mediolateral oblique (MLO) and craniocaudad (CC) views of both breasts were obtained. CAD: Full Field Digital Mammography with Computer Added Detection was performed. COMPARISON: Comparison is made with prior study dated March 22, 2022 and February 28, 2021. FINDINGS: Breast Composition: The breasts are heterogeneously dense, which may obscure small masses. There are no dominant masses or suspicious calcifications. No other significant abnormalities are identified. There has been no significant change since the prior study. BI/SCRN MAMM (CAD)W/LILLI BILAT IMPRESSION: Stable bilateral screening mammogram. Yearly follow-up mammogram recommended. (A) ASSESSMENT CATEGORY: BIRADS Category 1: Negative. A letter regarding these results will be sent to the patient by the facility within 30 days. Approximately 10% of breast cancers are not detected by mammography. A normal mammogram should not delay biopsy of a clinically suspicious abnormality. [id number] Electronically Signed: Darell Hernandez MD at 15:08 EDT ,
== END | disposition home or self-care (01) ==
LOC: OPBI 14:07
PROVIDERS: PCP Family Medicine; Referring Provider Family Medicine; Visit Provider Family Medicine
DX: Z12.31 Encounter for screening mammogram for malignant neoplasm of breast (principal)
CPT/HCPCS: 77063; 77067

== ENCOUNTER → 2024-05-21 | Outpatient (CLI) | payer OTHER, SELFPAY ==
[2024-05-21 18:18] LABS: ALB/GLOB Ratio 1.3 RATIO (0.9-2.4); AST(SGOT) 20 U/L (15-37); Alanine Aminotransfer ALT/SGPT 31 U/L (13-56); Alkaline Phosphatase 131 U/L (45-117); Anion Gap 8 (5-15); BUN 16 mg/dL (7-18); BUN/Creat Ratio 21.9 RATIO (10-20); Calcium,Total 9.5 mg/dL (8.5-10.1); Chloride 106 mmol/L (98-107); Creatinine, Serum 0.73 mg/dL (0.55-1.02); EST Glomerular Filtration Rate 86 mL/min (>60); Est Glom Filt Rate - Afr Amer 104 mL/min (>60); Glucose 113 mg/dL (74-106); Potassium 4.3 mmol/L (3.5-5.1); Sodium Level 139 mmol/L (136-145)
[2024-05-21 18:19] LABS: Microalbumin,Random Urine 38.6 mg/L (NO RANGE EST.); Microalbumin:Creatinine Ratio 31.4 mg/g CRE (<30 mg/g CRE)
[2024-05-21 18:43] LABS: Hemoglobin A1c 6.5 % (3.8-5.6)
== END | disposition home or self-care (01) ==
PROVIDERS: PCP Family Medicine; Referring Provider Family Medicine; Visit Provider Family Medicine
DX: E11.29 Type 2 diabetes mellitus with other diabetic kidney complication (principal)
CPT/HCPCS: 36415; 80053; 82043; 82570; 83036

== ENCOUNTER → 2024-11-12 | Outpatient (CLI) | payer OTHER, SELFPAY ==
[2024-11-12 18:18] LABS: Hemoglobin A1c 7.1 % (<=5.6)
[2024-11-12 18:30] LABS: ALB/GLOB Ratio 1.8 RATIO (0.9-2.4); AST(SGOT) 24 U/L (<=31); Alanine Aminotransfer ALT/SGPT 22 U/L (<=34); Albumin, Serum 4.4 g/dL (3.4-4.8); Alkaline Phosphatase 117 U/L (35-104); BUN 12 mg/dL (4-19); BUN/Creat Ratio 17.7 RATIO (10-20); Calcium,Total 9.5 mg/dL (7.6-11.0); Carbon Dioxide 24.9 mmol/L (21.0-32.0); Chloride 100 mmol/L (98-108); Cholesterol 152 mg/dL (<=200); Creatinine, Serum 0.67 mg/dL (0.70-1.20); EST Glomerular Filtration Rate 99 (>60); Globulin 2.5 g/dL (2.2-4.2); Glucose 132 mg/dL (70-99); Potassium 4.2 mmol/L (3.3-5.1); Sodium Level 139 mmol/L (133-145); Total Bilirubin 0.66 mg/dL (0.00-1.30); Triglycerides 97 mg/dL
[2024-11-12 18:31] LABS: Anion Gap 14 (5-15); High Density Lipoprotein 65 mg/dL; Low Density Lipoprotein Calc. 68 mg/dL; Very Low Density Lipoprotein 19 mg/dL (5-40); cholesterol:hdl ratio screen 2.35
[2024-11-12 20:14] LABS: Microalbumin,Random Urine 18.3 mg/L (NO RANGE EST.); Microalbumin:Creatinine Ratio 635.4 mg/g CRE
[2024-11-14 04:07] LABS: Carcinoembryonic Antigen 1.1 ng/mL (0.0-4.7)
== END | disposition home or self-care (01) ==
PROVIDERS: PCP Family Medicine; Referring Provider Family Medicine; Visit Provider Family Medicine
DX: E11.29 Type 2 diabetes mellitus with other diabetic kidney complication (principal); Z85.048 Personal history of other malignant neoplasm of rectum, rectosigmoid junction, and anus
CPT/HCPCS: 36415; 80053; 80061; 82043; 82378; 82570; 83036

== ENCOUNTER 2025-03-03 06:13 | Day surgery (SDC) | payer OTHER, SELFPAY ==
--- NOTE | 2025-03-01 14:14 | PAT.ANESEVAL ---
Pre-Assessment Diagnosis/Proposed Procedure Planned Operative Procedure(s): COLONOSCOPY-OA Anesthesia History Anesthesia History - [employer]: Anesthesia History - [employer] Hx Hospitalization No 03/01/25 12:49 Any Problems With Anesthesia No 03/01/25 12:49 Cholinesterase deficiency No 03/01/25 12:49 You/Your Family Experience No 03/01/25 12:49 fever (hyperthermia) with Relationship Recent Exposure to Contagious No 02/23/20 07:51 Disease Does patient have nerve No 03/01/25 12:49 stimulator Patient instructed to have device shut off --Does patient have Pacemaker or ICD? When Was Last Pacemaker Check QUESTION #4 FULL TEXT: You/Your Family Experience fever (hyperthermia) with Anesthesia Last Oral Intake Last Oral intake: Last Oral Intake NPO since Meds taken in AM with sips of water? Meds patient instructed to take am of surgery PONV PONV - [employer]: PONV - [employer] Female Yes 03/01/25 12:49 HX of Motion Sickness No 03/01/25 12:49 HX of N/V After Surgery No 03/01/25 12:49 Non-Smoker No 03/01/25 12:49 Duration of Surgery greater No 03/01/25 12:49 than 60 minutes Number of Risk Factors 1 03/01/25 12:49 PONV Score Low Risk 03/01/25 12:49 Height & Weight Height & Weight: Anesthesia: Height & Weight Height 5 ft 6 in 03/14/22 17:01 Respiratory Assessment Respiratory Assessment - [employer]: Respiratory Tract Infection Hx - [employer] Hx Respiratory Tract Infection No 03/01/25 12:49 STOP Sleep Apnea STOP Sleep Apnea - [employer]: STOP Sleep Apnea - [employer] Hx Hypertension Yes: ON MED, CONTROLLED 03/01/25 12:49 Hx Sleep Apnea No 03/01/25 12:49 CPAP No 03/01/25 12:49 BIPAP No 03/01/25 12:49 Do you snore loudly (louder No 03/01/25 12:49 than talking or can be heard Do you often feel tired/ No 03/01/25 12:49 fatigued/ sleepy during daytime? Has anyone observed you stop No 03/01/25 12:49 breathing during sleep? STOP Results Negative 03/01/25 12:49 QUESTION #5 FULL TEXT : Do you snore loudly (louder than talking or can be heard through closed doors)? 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 Specify any problems Hx of Preganancy in last 3 No 03/01/25 12:49 Months Nurse Filling Out Transfusion VCHRISTIN 03/01/25 12:49 & Questions: Date: 03/01/25 03/01/25 12:49 Time: 12:50 03/01/25 12:49 Patient unable to answer at this time (ie. confused, unrespo /Reproduction History /Reproductive History - [employer]: /Reproductive Hx- [employer] Hx Now No 03/01/25 12:49 Gestational Age (in weeks): EDC: Hx Hx Para Hx Section SAB No 03/01/25 12:49 [facility] Medical History (Updated 03/01/25 @ 12:49 by Alisa Tobias) Wears glasses Cancer Arthritis Back pain TIA (transient ischemic attack) Non-smoker Chronic cough Hypertension Family hx of colon cancer Family history of uterine fibroid Contact with and (suspected) exposure to other viral communicable diseases Home Medications Medication Instructions Recorded Last Taken Type aspirin 81 mg chewable tablet 81 mg PO DAILY@0800 10/31/13 02/25/25 History metformin 500 mg tablet 500 mg PO BIDCM 10/31/13 Unknown History losartan 50 mg tablet 50 mg PO DAILY 02/17/20 Unknown History psyllium husk 0.52 gram capsule 0.52 gm PO DAILY 02/17/20 Unknown History rosuvastatin 5 mg tablet 5 mg PO QHS 02/17/20 Unknown History saxagliptin 5 mg tablet 5 mg PO DAILY 03/01/25 Unknown History Allergy/AdvReac Type Severity Reaction Status Date / Time adhesive Allergy Rash Verified 03/01/25 12:31 naproxen Allergy Rash Verified 03/01/25 12:31 Surgical History (Updated 03/01/25 @ 12:49 by Alisa Tobias) Hx of wisdom tooth extraction Hx of dilation and curettage Hx of total knee arthroplasty History of back surgery History of colon resection Hx of hysterectomy Hx of right knee surgery Hx of knee surgery Hx of appendectomy Hx of tonsillectomy Hx of colonoscopy Social History Smoking Status: Never smoker Audit: Pertinent Findings Pertinent Findings EKG Perinent findings: November 10, 2020. Sinus tachycardia at 103 bpm. Recommendation Anesthesia Recommendation Anesthesia recommendation: OPTIMIZED for anesthesia
[2025-03-03] VITALS (8 sets, daily range): BP systolic 115–141; BP diastolic 68–77; PULSE 74–90; RESP 16–20; TEMP 36.2; O2SAT 96–99; BMI 30.6
--- OUTSIDE RECORDS SUMMARY | 2025-03-03 06:16 | XMS RPT_ITS | CCD ---
Author Organization [facility] Care Team Providers Care Returned Case Inspector Name Role Phone Dr. Torres Vargas Primary Care Provider Dr. Torres Vargas Referring Provider Rosana REAGAN, MERARY Duff Attending Provider ZHEN GUEVARA, TORRES Panda Attending Nicolasa VARGAS MD., TORRES Panda Attending Unavailable Dr. Torres Vargas MD Primary Care Provider Dr. Torres Vargas MD Attending Provider [phone] Dr. 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 02-23-2020 [facility] Work Phone: (3 sources) Adhesive agent; Translations: [adhesive] Allergy to substance 12-18-2022 [facility] Comment on above: Electrical grounding pad (1 source) Naproxen Drug Allergy 03-01-2025 [facility] Repository Medications Current Medications Medication Drug Class(es) Dates Sig (Normalized) Sig (Original) aspirin 81 mg chewable tablet (4 sources) Platelet Aggregation Inhibitor, Nonsteroidal Anti-inflammatory Drug Start: 10-31-2013 take 1 tablet by mouth once daily Aspirin 81 MG tablet,chewable Active 81 mg PO DAILY@0800 October 31, 2013 12:00am cloNIDine hydrochloride 0.2 mg oral tablet (4 sources) Central alpha-2 Adrenergic Agonist Start: 02-17-2020 take 1 tablet by mouth once daily Clonidine Hcl 0.2 MG tablet Active 0.2 mg PO DAILY February 17, 2020 12:00am losartan potassium 50 mg oral tablet (4 sources) Angiotensin 2 Receptor Jeannie Start: 02-17-2020 take 1 tablet by mouth once daily Losartan 50 MG tablet Active 50 mg PO DAILY February 17, 2020 12:00am metFORMIN hydrochloride 500 mg oral tablet (4 sources) Biguanide Start: 10-31-2013 take 1 tablet by mouth twice daily at mealtime Metformin 500 MG tablet Active 500 mg PO TWICE DAILY WITH MEALS October 31, 2013 12:00am psyllium 520 mg oral capsule (4 sources) Start: 02-17-2020 Psyllium Husk 0.52 GM capsule Active 0.52 g PO DAILY February 17, 2020 12:00am rosuvastatin calcium 5 mg oral tablet (4 sources) HMG-CoA Reductase Inhibitor Start: 02-17-2020 take 1 tablet by mouth at bedtime Rosuvastatin 5 MG tablet Active 5 mg PO AT BEDTIME February 17, 2020 12:00am SITagliptin 100 mg oral tablet (4 sources) Dipeptidyl Peptidase 4 Inhibitor Start: 02-17-2020 take 1 tablet by mouth once daily Sitagliptin Phosphate 100 MG tablet Active 100 mg PO DAILY February 17, 2020 12:00am Completed/Discontinued Medications Medication Drug Class(es) Dates Sig (Normalized) Sig (Original) ferrous sulfate 325 mg oral tablet (4 sources) Start: 4 End: 4 take 1 tablet by mouth every other day Ferrous Sulfate (Iron Supplement) 325 MG tablet Discontinued 325 mg PO EVERY OTHER DAY October 31, 2013 12:00am March 15, 2014 3:23pm hydroCHLOROthiazide 12.5 mg oral capsule (4 sources) Thiazide Diuretic Start: 4 End: 4 take 1 capsule by mouth every other day Hydrochlorothiazide 12.5 MG capsule Discontinued 12.5 mg PO EVERY OTHER DAY October 31, 2013 12:00am March 15, 2014 3:23pm Problems Problem Classification Problem Date Documented Da te Episodic/Chronic Anxiety disorders (4 sources) Anxiety; Translations: [Anxiety disorder, unspecified] 02-23-2020 Chronic Cancer of rectum and anus (4 sources) Malignant tumor of rectum; Translations: [Malignant neoplasm of rectum] 02-23-2020 Chronic Cancer of rectum and anus (4 sources) History of malignant neoplasm of digestive organ; Translations: [Personal history of other malignant neoplasm of rectum, rectosigmoid junction, and anus] 02-23-2020 Episodic Diabetes mellitus with complications (1 source) Type 2 diabetes mellitus with other diabetic kidney complication; Translations: [Type 2 diabetes mellitus with other diabetic kidney complication] Onset: 11-17-2024 Chronic Diabetes mellitus without complication (4 sources) Prediabetes; Translations: [Prediabetes] 02-23-2020 Episodic Essential hypertension (4 sources) Hypertensive disorder; Translations: [Essential (primary) hypertension] 02-23-2020 Chronic Immunizations and screening for infectious disease (4 sources) Contact with and (suspected) exposure to other viral communicable diseases; Translations: [Contact with or suspected exposure to other viral communicable disease] Episodic Other circulatory disease (4 sources) History of cerebrovascular accident without residual deficits; Translations: [Personal history of transient ischemic attack (TIA), and cerebral infarction without residual deficits] 02-23-2020 Episodic Other gastrointestinal disorders (4 sources) Diarrhea; Translations: [Diarrhea, unspecified] 02-23-2020 Episodic Syncope (4 sources) Syncope; Translations: [Syncope and collapse] 02-23-2020 Episodic Results Test Name Value Interpretation Reference Range Facility MR/Danna 03-01-2025 MR/VIKKI [facility] Medical Records Department [address] [place] [address] PAT - Anesthesia 03/01/25 1414 MR#: [id number] Acct: [id number] Name: VIRI CHERRY Rep #: [id number] : 1965 60 From: Jose Eduardo Flores MD PCP: Dr. Torres Vargas MD Status:PRE [facility] [place] Race: C Location: [place] Pre-Assessment Diagnosis/Proposed Procedure Planned Operative Procedure(s): COLONOSCOPY-OA Anesthesia History Anesthesia History - copyist: Anesthesia History - copyist Hx Hospitalization No 03/01/25 12:49 Any Problems With Anesthesia No 03/01/25 12:49 Cholinesterase deficiency No 03/01/25 12:49 You/Your Family Experience No 03/01/25 12:49 fever (hyperthermia) with Relationship Recent Exposure to Contagious No 02/23/20 07:51 Disease Does patient have nerve No 03/01/25 12:49 stimulator Patient instructed to have device shut off --Does patient have Pacemaker or ICD? When Was Last Pacemaker Check QUESTION #4 FULL TEXT: You/Your Family Experience fever (hyperthermia) with Anesthesia Last Oral Intake Last Oral intake: Last Oral Intake NPO since Meds taken in AM with sips of water? Meds patient instructed to take am of surgery PONV PONV - copyist: PONV - copyist Female Yes 03/01/25 12:49 HX of Motion Sickness No 03/01/25 12:49 HX of N/V After Surgery No 03/01/25 12:49 Non-Smoker No 03/01/25 12:49 Duration of Surgery greater No 03/01/25 12:49 than 60 minutes Number of Risk Factors 1 03/01/25 12:49 PONV Score Low Risk 03/01/25 12:49 Height Weight Height Weight: Anesthesia: Height Weight Height 5 ft 6 in 03/14/22 17:01 Respiratory Assessment Respiratory Assessment - copyist: Respiratory Tract Infection Hx - copyist Hx Respiratory Tract Infection No 03/01/25 12:49 STOP Sleep Apnea STOP Sleep Apnea - copyist: STOP Sleep Apnea - copyist Hx Hypertension Yes: ON MED, CONTROLLED 03/01/25 12:49 Hx Sleep Apnea No 03/01/25 12:49 CPAP No 03/01/25 12:49 BIPAP No 03/01/25 12:49 Do you snore loudly (louder No 03/01/25 12:49 than talking or can be heard Do you often feel tired/ No 03/01/25 12:49 fatigued/ sleepy during daytime? Has anyone observed you stop No 03/01/25 12:49 breathing during sleep? STOP Results Negative 03/01/25 12:49 QUESTION #5 FULL TEXT : Do you snore loudly (louder than talking or can be heard through closed doors)? 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 Specify any problems Hx of Preganancy in last 3 No 03/01/25 12:49 Months Nurse Filling Out Transfusion VCHRISTIN 03/01/25 12:49 Questions: Date: 03/01/25 03/01/25 12:49 Time: 12:50 03/01/25 12:49 Patient unable to answer at this time (ie. confused, unrespo /Reproduction History /Reproductive History - copyist: /Reproductive Hx- copyist Hx Now No 03/01/25 12:49 Gestational Age (in weeks): EDC: Hx Hx Para Hx Section SAB No 03/01/25 12:49 [facility] Medical History (Updated 03/01/25 @ 12:49 by Alisa Tobias) Wears glasses Cancer Arthritis Back pain TIA (transient ischemic attack) Non-smoker Chronic cough Hypertension Family hx of colon cancer Family history of uterine fibroid Contact with and (suspected) exposure to other viral communicable diseases Home Medications ???Medication ???Instructions ???Recorded ???Last Taken ???Type aspirin 81 mg chewable tablet 81 mg PO DAILY@0800 10/31/1302/25 History metformin 500 mg tablet 500 mg PO BIDCM 10/31/13 Unknown H istory losartan 50 mg tablet 50 mg PO DAILY 02/17/20 Unknown Hi story psyllium husk 0.52 gram capsule 0.52 gm PO DAILY 02/17/20 Unknown History rosuvastatin 5 mg tablet 5 mg PO QHS 02/17/20 Unknown Histo ry saxagliptin 5 mg tablet 5 mg PO DAILY 03/01/25 Unknown His tory Allergy/AdvReac Type Severity Reaction Status Date / Time adhesive Allerg (more content not included)... Normal [facility] Microalb:Creat Ratio,Random URon 01-28-2025 MALB:CREAT 63.5 mg/g CRE Normal [facility] Comment on above: Order Comment: Order Date: 11/10/24 Order Info: [id number] - MIALB Result Comment: AMENDED REPORT 01/28/25 0840 MALB:CREAT previously reported as: 635.4 mg/g CRE Performed By: #### L 502.0250 #### [facility] [address] [place], [place], [address] Carcinoembryonic Antigenon 0 11-14-2024 CEA 1.1 ng/mL Normal 0.0-4.7 [facility] Comment on above: Order Comment: Order Date: 11/10/24 Order Info: [id number] - CEA Result Comment: Nons mokers <3.9 Smokers <5.6 [facility] Electrochemiluminescence Immunoassay (ECLIA) Values obtained with different assay methods or kits cannot be used interchangeably. Results cannot be interpreted as absolute evidence of the presence or absence of malignant disease. Performed at: [address] [id number] Bargeman: Medhat Burr PhD, Phone: [phone] Performed By: #### L 500.7283, L512.5359, L3100.2300, L500.1803 #### [facility] [address] [place], [place], [id number] Albumin DL <= 20 mg/L (U) [M ass/Vol]Ordered By: Torres Vargas on 11-12-2024 Urine Random Microalbumin 18.3 mg/L NO RANGE EST. [facility] Anion gap in Serum or Plasma Ordered By: Torres Vargas on 11-12-2024 Anion gap [Moles/Vol] 14 mmol/L 5-15 [facility] BUN/creatinine ratioOrdered By: Torres Vargas on 11-12-2024 Urea nitrogen/Creatinine [Mass ratio] 17.7 mg/mg 10-20 [facility] Bilirubin, totalOrdered By: Torres Vargas on 11-12-2024 Bilirubin [Mass/Vol] 0.66 mg/dL 0.00-1.30 [facility] Calculated very low density lipoprotein (VLDL) cholesterol measurementOrdered By: Torres Vargas on 11-12-2024 VLDL Cholesterol 19 mg/dL 5-40 [facility] Carbon dioxide, total [Moles /volume] in Central venous bloodOrdered By: Torres Vargas on 11-12-2024 CO2 [Moles/Vol] 24.9 mmol/L 21.0-32.0 [facility] Chloride assayOrdered By: Jeff Vargas on 11-12-2024 Chloride [Moles/Vol] 100 mmol/L 98-108 [facility] Comprehensive Metabolic Prof ilon 11-12-2024 GAP 14 Normal 5-15 [facility] Comment on above: Order Comment: Order Date: 11/10/24 Order Info: [id number] - CMP Order Info: [id number] - LIPID Performed By: #### L 500.4100, L501.9985, L3100.2300, L500.4050 #### [facility] [address] [place], [address] Albumin [Mass/Vol] 4.4 g/dL Normal 3.4-4.8 [facility] Comment on above: Order Comment: Order Date: 11/10/24 Order Info: [id number] - CMP Order Info: [id number] - LIPID Performed By: #### L 500.4100, L501.9985, L3100.2300, L500.4050 #### [facility] [address] [place], [address] Albumin/Globulin [Mass ratio] 1.8 {ratio} Normal 0.9-2.4 [facility] Comment on above: Order Comment: Order Date: 11/10/24 Order Info: [id number] - CMP Order Info: [id number] - LIPID Performed By: #### L 500.4100, L501.9985, L3100.2300, L500.4050 #### [facility] [address] [place], [address] ALK PHOS 117 U/L High 35-104 [facility] Comment on above: Order Comment: Order Date: 11/10/24 Order Info: [id number] - CMP Order Info: [id number] - LIPID Performed By: #### L 500.4100, L501.9985, L3100.2300, L500.4050 #### [facility] [address] [place], [address] ALT [Catalytic activity/Vol] 22 U/L Normal <=34 [facility] Comment on above: Order Comment: Order Date: 11/10/24 Order Info: [id number]- - CMP Order Info: [id number] - LIPID Performed By: #### L 500.4100, L501.9985, L3100.2300, L500.4050 #### [facility] [address] [place], [address] AST [Catalytic activity/Vol] 24 U/L Normal <=31 [facility] Comment on above: Order Comment: Order Date: 11/10/24 Order Info: [id number]- - CMP Order Info: [id number] - LIPID Performed By: #### L 500.4100, L501.9985, L3100.2300, L500.4050 #### [facility] [address] [place], [address] Bilirubin [Mass/Vol] 0.66 mg/dL Normal 0.00-1.30 [facility] Comment on above: Order Comment: Order Date: 11/10/24 Order Info: [id number]- - CMP Order Info: [id number] - LIPID Performed By: #### L 500.4100, L501.9985, L3100.2300, L500.4050 #### [facility] [address] [place], [address] BUN/CRE 17.7 RATIO Normal 10-20 [facility] Comment on above: Order Comment: Order Date: 11/10/24 Order Info: [id number]- - CMP Order Info: [id number] - LIPID Performed By: #### L 500.4100, L501.9985, L3100.2300, L500.4050 #### [facility] [address] [place], [address] Calcium [Mass/Vol] 9.5 mg/dL Normal 7.6-11.0 [facility] Comment on above: Order Comment: Order Date: 11/10/24 Order Info: [id number] - CMP Order Info: [id number] - LIPID Performed By: #### L 500.4100, L501.9985, L3100.2300, L500.4050 #### [facility] [address] [place], [address] Chloride [Moles/Vol] 100 mmol/L Normal 98-108 [facility] Comment on above: Order Comment: Order Date: 11/10/24 Order Info: [id number]- - CMP Order Info: [id number] - LIPID Performed By: #### L 500.4100, L501.9985, L3100.2300, L500.4050 #### [facility] [address] [place], [address] CO2 [Moles/Vol] 24.9 mmol/L Normal 21.0-32.0 [facility] Comment on above: Order Comment: Order Date: 11/10/24 Order Info: [id number] - CMP Order Info: [id number] - LIPID Performed By: #### L 500.4100, L501.9985, L3100.2300, L500.4050 #### [facility] [address] [place], [address] Creatinine [Mass/Vol] 0.67 mg/dL Low 0.70-1.20 [facility] Comment on above: Order Comment: Order Date: 11/10/24 Order Info: [id number] - CMP Order Info: [id number] - LIPID Performed By: #### L 500.4100, L501.9985, L3100.2300, L500.4050 #### [facility] [address] [place], [address] GFR/1.73 sq M.predicted among non-blacks MDRD (S/P/Bld) [Vol rate/Area] 99 mL/min/{1.73_m2} Normal >60 [facility] Comment on above: Order Comment: Order Date: 11/10/24 Order Info: [id number] - CMP Order Info: [id number] - LIPID Result Comment: mL/m in/1.73m2 CKD-EPI Creatinine Equation (2020) Performed By: #### L 500.4100, L501.9985, L3100.2300, L500.4050 #### [facility] [address] [place], [address] Globulin (S) [Mass/Vol] 2.5 g/dL Normal 2.2-4.2 [facility] Comment on above: Order Comment: Order Date: 11/10/24 Order Info: [id number] - CMP Order Info: [id number] - LIPID Performed By: #### L 500.4100, L501.9985, L3100.2300, L500.4050 #### [facility] [address] [place], [address] Glucose [Mass/Vol] 132 mg/dL High 70-99 [facility] Comment on above: Order Comment: Order Date: 11/10/24 Order Info: [id number] - CMP Order Info: [id number] - LIPID Performed By: #### L 500.4100, L501.9985, L3100.2300, L500.4050 #### [facility] [address] [place], [address] Potassium [Moles/Vol] 4.2 mmol/L Normal 3.3-5.1 [facility] Comment on above: Order Comment: Order Date: 11/10/24 Order Info: [id number] - CMP Order Info: [id number] - LIPID Performed By: #### L 500.4100, L501.9985, L3100.2300, L500.4050 #### [facility] [address] [place], [address] Sodium [Moles/Vol] 139 mmol/L Normal 133-145 [facility] Comment on above: Order Comment: Order Date: 11/10/24 Order Info: [id number] - CMP Order Info: [id number] - LIPID Performed By: #### L 500.4100, L501.9985, L3100.2300, L500.4050 #### [facility] [address] [place], [address] T PROT 7.0 g/dL Normal 5.9-8.4 [facility] Comment on above: Order Comment: Order Date: 11/10/24 Order Info: [id number] - CMP Order Info: [id number] - LIPID Performed By: #### L 500.4100, L501.9985, L3100.2300, L500.4050 #### [facility] [address] [place], [address] Urea nitrogen [Mass/Vol] 12 mg/dL Normal 4-19 [facility] Comment on above: Order Comment: Order Date: 11/10/24 Order Info: [id number] - CMP Order Info: [id number] - LIPID Performed By: #### L 500.4100, L501.9985, L3100.2300, L500.4050 #### [facility] [address] [place], [address] Creatinine Unsp time (U) [Ma ss/Vol]Ordered By: Torres Vargas on 11-12-2024 Creatinine (U) [Mass/Vol] 28.80 mg/dL 28.00-217.0 0 [facility] GFR/1.73 sq M.predicted debi g non-blacks MDRD (S/P/Bld) [Vol rate/Area]Ordered By: Torres Vargas on 11-12-2024 Estimated GFR (MDRD) Non-Af Amer 99 >60 [facility] Comment on above: mL/min/1.73m2 CKD-EP I Creatinine Equation (2020) Hemoglobin A1con 11-12-2024 HbA1c (Bld) [Mass fraction] 7.1 % Normal <=5.6 [facility] Comment on above: Order Comment: Order Date: 11/10/24 Order Info: [id number] - A1C Performed By: #### L 500.4100, L501.9985, L3100.2300, L500.4050 #### [facility] [address] [place], [address] Hemoglobin A1c percentageOrd ered By: Torres Vargas on 11-12-2024 HbA1c (Bld) [Mass fraction] 7.1 % >5.7 [facility] LDL calc ser/plasOrdered By: Torres Vargas on 11-12-2024 LDL Cholesterol, Calculated 68 mg/dL [facility] Comment on above: Kxlvhtqifp=501-734 m g/dL & Higher Sbqi=977 mg/dL or greater Laboratory - Chemistry and C hemistry - challengeOrdered By: Torres Vargas on 11-12-2024 AST [Catalytic activity/Vol] 24 U/L <32 [facility] Lipid Profileon 11-12-2024 CHOL:HDL 2.35 Normal [facility] Comment on above: Order Comment: Order Date: 11/10/24 Order Info: [id number] - CMP Order Info: [id number] - LIPID Performed By: #### L 500.4100, L501.9985, L3100.2300, L500.4050 #### [facility] [address] [place], [address] Cholesterol in HDL [Mass/Vol] 65 mg/dL Normal [facility] Comment on above: Order Comment: Order Date: 11/10/24 Order Info: [id number] - CMP Order Info: [id number] - LIPID Result Comment: [place] onal Cholesterol Education Program (NCEP) guidelines: <40 mg/dL: Low HDL-cholesterol (major risk factor for CHD) >= 60 mg/dL: High HDL-cholesterol (negative risk factor for CHD) HDL-cholesterol is affected by a number of factors, e.g. smoking, exercise, hormones, sex and age. Performed By: #### L 500.4100, L501.9985, L3100.2300, L500.4050 #### [facility] [address] [place], [address] Cholesterol in LDL [Mass/Vol] 68 mg/dL Normal [facility] Comment on above: Order Comment: Order Date: 11/10/24 Order Info: [id number] - CMP Order Info: [id number] - LIPID Result Comment: Bord uedlnt=214-498 mg/dL Higher Barc=937 mg/dL or greater Performed By: #### L 500.4100, L501.9985, L3100.2300, L500.4050 #### [facility] [address] [place], [address] Cholesterol in VLDL [Mass/Vol] 19 mg/dL Normal 5-40 [facility] Comment on above: Order Comment: Order Date: 11/10/24 Order Info: [id number] - CMP Order Info: [id number] - LIPID Performed By: #### L 500.4100, L501.9985, L3100.2300, L500.4050 #### [facility] [address] [place], [address] Cholesterol [Mass/Vol] 152 mg/dL Normal <=200 [facility] Comment on above: Order Comment: Order Date: 11/10/24 Order Info: [id number] - CMP Order Info: [id number] - LIPID Result Comment: Chol esterol level, Desirable <200 mg/dL Borderline high cholesterol 200-239 mg/dL High cholesterol >=240 mg/dL Recommendations of the NCEP Adult Treatment Panel for the following risk-cutoff thresholds for the [place] population. Performed By: #### L 500.4100, L501.9985, L3100.2300, L500.4050 #### [facility] [address] [place], [address] Triglyceride [Mass/Vol] 97 mg/dL Normal [facility] Comment on above: Order Comment: Order Date: 11/10/24 Order Info: [id number] - CMP Order Info: [id number] - LIPID Result Comment: The drugs N-Acetylcysteine and Metamizole may falsely depress this assay. Normal range: <150 mg/dL Borderline High: 150-199 mg/dL High: 200-499 mg/dL Very High: >500 mg/dL Performed By: #### L 500.4100, L501.9985, L3100.2300, L500.4050 #### [facility] [address] [place], [address] Microalbumin/creat ratio urO rdered By: Torres Vargas on 11-12-2024 Urine Microalbumin/Creatini ne Ratio 635.4 mg/g CRE [facility] Potassium (Unsp spec) [Mass/ Vol]Ordered By: Torres Vargas on 11-12-2024 Potassium [Moles/Vol] 4.2 mmol/L 3.3-5.1 [facility] Screening total cholesterol/ high density lipoprotein (HDL) cholesterol ratioOrdered By: Torres Vargas on 11-12-2024 Cholesterol.total/Cho lesterol in HDL [Mass ratio] 2.35 {ratio} [facility] Serum creatinine measurement (mass/volume)Ordered By: Torres Vargas on 11-12-2024 Creatinine [Mass/Vol] 0.67 mg/dL Low 0.70-1.20 [facility] Serum globulin measurementOr dered By: Torres Vargas on 11-12-2024 Globulin (S) [Mass/Vol] 2.5 g/dL 2.2-4.2 [facility] Serum glucose measurement (m ass/volume)Ordered By: Torres Vargas on 11-12-2024 Glucose [Mass/Vol] 132 mg/dL High 70-99 [facility] Serum or plasma alanine marquez otransferase (ALT) measurementOrdered By: Torres Vargas on 11-12-2024 ALT [Catalytic activity/Vol] 22 U/L <35 [facility] Serum or plasma albumin dwain urement (mass/volume)Ordered By: Torres Vargas on 11-12-2024 Albumin [Mass/Vol] 4.4 g/dL 3.4-4.8 [facility] Serum or plasma albumin/glob ulin mass ratioOrdered By: Torres Vargas on 11-12-2024 Albumin/Globulin [Mass ratio] 1.8 {ratio} 0.9-2.4 [facility] Serum or plasma alkaline jeffrey sphatase measurementOrdered By: Torres Vargas on 11-12-2024 ALP [Catalytic activity/Vol] 117 U/L High 35-104 [facility] Serum or plasma calcium dwain urement (mass/volume)Ordered By: Torres Vargas on 11-12-2024 Calcium [Mass/Vol] 9.5 mg/dL 7.6-11.0 [facility] Serum or plasma cholesterol in HDL measurement (mass/volume)Ordered By: Torres Vargas on 11-12-2024 Cholesterol in HDL [Mass/Vol] 65 mg/dL >40 [facility] Comment on above: National Cholesterol Education Program (NCEP) guidelines:<40 mg/dL: Low HDL-cholesterol (major risk factor for CHD)>= 60 mg/dL: High HDL-cholesterol (negative risk factor for CHD)HDL-cholesterol is affected by a number of factors, e.g. smoking, exercise, hormones, sex and age. Serum or plasma cholesterol measurement (mass/volume)Ordered By: Torres Vargas on 11-12-2024 Cholesterol [Mass/Vol] 152 mg/dL <201 [facility] Comment on above: Cholesterol level, D esirable <200 mg/dLBorderline high cholesterol 200-239 mg/dLHigh cholesterol >=240 mg/dLRecommendations of the NCEP Adult Treatment Panel for the following risk-cutoff thresholds for the [place] population. Serum or plasma urea nitroge n measurement (mass/volume)Ordered By: Torres Vargas on 11-12-2024 Urea nitrogen [Mass/Vol] 12 mg/dL 4-19 [facility] Sodium levelOrdered By: Torres Vargas on 11-12-2024 Sodium [Moles/Vol] 139 mmol/L 133-145 [facility] Total proteinOrdered By: Nelda Vargas on 11-12-2024 Protein [Mass/Vol] 7.0 g/dL 5.9-8.4 [facility] Triglycerides measurementOrd ered By: Torres Vragas on 11-12-2024 Triglyceride [Mass/Vol] 97 mg/dL <199 [facility] Comment on above: The drugs N-Acetylcy steine and Metamizole may falsely depress this assay. Normal range: <150 mg/dLBorderline High: 150-199 mg/dLHigh: 200-499 mg/dLVery High: >500 mg/dL Comprehensive Metabolic Prof ilon 05-21-2024 Albumin [Mass/Vol] 4.0 g/dL Normal 3.2-5.0 [facility] Comment on above: Performed By: #### L 500.4050, L502.0250, L501.9985 #### [facility] [address] [place], [address] Albumin/Globulin [Mass ratio] 1.3 {ratio} Normal 0.9-2.4 [facility] Comment on above: Performed By: #### L 500.4050, L502.0250, L501.9985 #### [facility] [address] [place], [address] ALK P 131 U/L High 45-117 [facility] Comment on above: Performed By: #### L 500.4050, L502.0250, [id number] #### [facility] [address] [place], [address] ALT [Catalytic activity/Vol] 31 U/L Normal 13-56 [facility] Comment on above: Performed By: #### L 500.4050, L502.0250, L501.9985 #### [facility] [address] [place], [address] AST [Catalytic activity/Vol] 20 U/L Normal 15-37 [facility] Comment on above: Performed By: #### L 500.4050, L502.0250, L501.9985 #### [facility] [address] [place], [address] Bilirubin [Mass/Vol] 0.60 mg/dL Normal 0.20-1.00 [facility] Comment on above: Result Comment: For patients on eltrombopag therapy, use of Dimension [place] TBIL is not recommended. Performed By: #### L 500.4050, L502.0250, L501.9985 #### [facility] [address] [place], [address] BUN/CRE 21.9 RATIO High 10-20 [facility] Comment on above: Performed By: #### L 500.4050, L502.0250, L501.9985 #### [facility] [address] [place], [address] CA,Total 9.5 mg/dL Normal 8.5-10.1 [facility] Comment on above: Performed By: #### L 500.4050, L502.0250, L501.9985 #### [facility] [address] [place], [address] Chloride [Moles/Vol] 106 mmol/L Normal 98-107 [facility] Comment on above: Performed By: #### L 500.4050, L502.0250, L501.9985 #### [facility] [address] [place], [address] CO2 [Moles/Vol] 25.0 mmol/L Normal 21.0-32.0 [facility] Comment on above: Performed By: #### L 500.4050, L502.0250, L501.9985 #### [facility] [address] [place], [address] Creatinine [Mass/Vol] 0.73 mg/dL Normal 0.55-1.02 [facility] Comment on above: Result Comment: The validity of the calculated GFR GFRAA in patients over 70 years has not been determined. Clinical correlation is essential. Performed By: #### L 500.4050, L502.0250, L501.9985 #### [facility] [address] [place], [address] EST GFR - AA 104 mL/min Normal >60 [facility] Comment on above: Result Comment: Afri can [place] GFR Calc Performed By: #### L 500.4050, L502.0250, L501.9985 #### [facility] [address] [place], [address] GAP 8 Normal 5-15 [facility] Comment on above: Performed By: #### L 500.4050, L502.0250, L501.9985 #### [facility] [address] [place], [address] GFR/1.73 sq M.predicted among non-blacks MDRD (S/P/Bld) [Vol rate/Area] 86 mL/min/{1.73_m2} Normal >60 [facility] Comment on above: Result Comment: Non- GFR Calc Performed By: #### L 500.4050, L502.0250, L501.9985 #### [facility] [address] [place], [address] Globulin (S) [Mass/Vol] 3.0 g/dL Normal 2.2-4.2 [facility] Comment on above: Performed By: #### L 500.4050, L502.0250, L501.9985 #### [facility] [address] [place], [address] Glucose [Mass/Vol] 113 mg/dL High 74-106 [facility] Comment on above: Result Comment: Fast ing Glucose result from 100 to 125 mg/dL suggests IMPAIRED HOMEOSTASIS per A.D.A. criteria. Performed By: #### L 500.4050, L502.0250, L501.9985 #### [facility] [address] [place], [address] Potassium [Moles/Vol] 4.3 mmol/L Normal 3.5-5.1 [facility] Comment on above: Performed By: #### L 500.4050, L502.0250, L501.9985 #### [facility] [address] [place], [address] Sodium [Moles/Vol] 139 mmol/L Normal 136-145 [facility] Comment on above: Performed By: #### L 500.4050, L502.0250, L501.9985 #### [facility] [address] [place], [address] T PROT 7.0 g/dL Normal 6.4-8.2 [facility] Comment on above: Performed By: #### L 500.4050, L502.0250, L501.9985 #### [facility] [address] [place], [address] Urea nitrogen [Mass/Vol] 16 mg/dL Normal 7-18 [facility] Comment on above: Performed By: #### L 500.4050, L502.0250, L501.9985 #### [facility] [address] [place], [address] Hemoglobin A1con 05-21-2024 HbA1c (Bld) [Mass fraction] 6.5 % High 3.8-5.6 [facility] Comment on above: Result Comment: Norm al < 5.7 % Prediabetic 5.7 - 6.4 % Diabetic >or= 6.5 % Please note range changes. Performed By: #### L 500.4050, L502.0250, L501.9985 #### [facility] [address] [place], [address] Microalb:Creat Ratio,Random URon 05-21-2024 Creatinine [Mass/Vol] 123.00 mg/dL Normal NO RAN GE EST. [facility] Comment on above: Performed By: #### L 500.4050, L502.0250, L501.9985 #### [facility] [address] [place], [address] MALB:CRE 31.4 mg/g CRE High <30 mg/g CRE [facility] Comment on above: Performed By: #### L 500.4050, L502.0250, L501.9985 #### [facility] [address] [place], [address] MICROALBUMIN,UR 38.6 mg/L Normal NO RANGE EST. [facility] Comment on above: Performed By: #### L 500.4050, L502.0250, L501.9985 #### [facility] [address] [place], [address] Basophil percentageOrdered B y: Torres Vargas on 12-02-2023 Bilirubin [Mass/Vol] 0.70 mg/dL 0.20-1.00 [facility] Comment on above: For patients on eltr ombopag therapy, use of Dimension [place] TBIL is not recommended. Chloride [Moles/Vol] 105 mmol/L 98-107 [facility] Glucose [Mass/Vol] 156 mg/dL 74-106 [facility] Comment on above: Fasting Glucose resu lt greater than or equal to 126 mg/dL suggests DIABETES MELLITUS per A.D.A. criteria. Potassium [Moles/Vol] 4.1 mmol/L 3.5-5.1 [facility] Protein [Mass/Vol] 7.1 g/dL 6.4-8.2 [facility] Sodium [Moles/Vol] 139 mmol/L 136-145 [facility] - Chemistry and C hemistry - challengeOrdered By: Torres Vargas on 12-02-2023 Albumin/Globulin [Mass ratio] 1.3 {ratio} 0.9-2.4 [facility] ALP [Catalytic activity/Vol] 128 U/L 45-117 [facility] ALT [Catalytic activity/Vol] 43 U/L 13-56 [facility] CO2 [Moles/Vol] 28.0 mmol/L 21.0-32.0 [facility] Globulin (S) [Mass/Vol] 3.1 g/dL 2.2-4.2 [facility] Urea nitrogen/Creatinine [Mass ratio] 19.1 mg/mg 10-20 [facility] No Panel InformationOrdered By: Torres Vargas on 12-02-2023 Estimated GFR (MDRD) Amer 104 mL/min >60 [facility] Comment on above: GFR Calc Estimated GFR (MDRD) Non-Af Amer 86 mL/min >60 [facility] Comment on above: Non- GFR Calc Urine Microalbumin/Creatini ne Ratio 173.1 mg/g CRE <30 [facility] Serum or plasma calcium dwain urement (mass/volume)Ordered By: Torres Vargas on 12-02-2023 Calcium [Mass/Vol] 9.5 mg/dL 8.5-10.1 [facility] Serum or plasma creatinine m easurement (mass/volume)Ordered By: Torres Vargas on 12-02-2023 Creatinine [Mass/Vol] 0.73 mg/dL 0.55-1.02 [facility] Comment on above: The validity of the calculated GFR & GFRAA in patients over 70 years has not been determined. Clinical correlation is essential. Serum or plasma urea nitroge n measurement (mass/volume)Ordered By: Torres Vargas on 12-02-2023 Urea nitrogen [Mass/Vol] 14 mg/dL 7-18 [facility] Thin prep Papanicolaou smear with manual screeningOrdered By: Torres Vargas on 12-02-2023 Thin prep Papanicolaou smear with manual screening 4.0 g/dL 3.2-5.0 [facility] Thin prep Papanicolaou smear with manual screening 22 U/L 15-37 [facility] Thin prep Papanicolaou smear with manual screening 6 5-15 [facility] Thin prep Papanicolaou smear with manual screening 79.3 mg/L NO RANGE EST. [facility] Urine creatinine measurement (mass/volume)Ordered By: Torres Vargas on 12-02-2023 Creatinine (U) [Mass/Vol] 45.80 mg/dL NO RANGE EST. [facility] Whole blood hemoglobin A1c/t otal hemoglobin ratio (mass fraction)Ordered By: Torres Vargas on 12-02-2023 HbA1c (Bld) [Mass fraction] 6.5 % 3.8-5.6 [facility] Comment on above: Normal < 5.7 % Predi abetic 5.7 - 6.4 % Diabetic >or= 6.5 % Please note range changes. Laboratory - Microbiology an d Antimicrobial susceptibilityon 03-14-2022 SARS-CoV-2 (COVID-19) RNA VIVI+probe Ql (Unsp spec) Not detected [facility] Work Phone: No Panel Informationon 03-14 Influenza Types A,B Rapid (Clinic) Not detected [facility] Work Phone: Vital Signs Date Time Vital Sign Value Performing Clinician Faci lity 08-23-2022 16:18-0500 Body height 167.64 cm TORRES VARGAS MD [facility] 08-23-2022 16:18-0500 Body weight 86.36 kg TORRES VARGAS MD [facility] 08-23-2022 16:18-0500 Body weight 30.73 kg/m2 TORRES VARGAS MD [facility] 03-14-2022 17:28-0400 Diastolic blood pressure 78 mm[Hg] Dr. Torres Vargas Work Phone: [facility] Work Phone: 03-14-2022 17:28-0400 Heart rate 80 /min Dr. Torres Vargas Work Phone: [facility] Work Phone: 03-14-2022 17:28-0400 Respiratory rate 14 /min Dr. Torres Vargas Work Phone: [facility] Work Phone: 03-14-2022 17:28-0400 Systolic blood pressure 128 mm[Hg] Dr. Torres Vargas Work Phone: [facility] Work Phone: 03-14-2022 17:01-0400 Body height 167.[address] Torres Vargas Work Phone: [facility] Work Phone: 03-14-2022 17:01-0400 Body mass index (BMI) [Ratio] 30.7 kg/m2 Dr. Torres Vargas Work Phone: [facility] Work Phone: 03-14-2022 17:01-0400 Body temperature 98.3 [degF] Dr. Torres Vargas Work Phone: [facility] Work Phone: 03-14-2022 17:01-0400 Body weight 86.[address] Torres Vargas Work Phone: [facility] Work Phone: 03-14-2022 17:01-0400 SaO2% (BldA) [Mass fraction] 97 % Dr. Torres Vargas Work Phone: [facility] Work Phone: Encounters Encounter Date Encounter Type Care Provider Facility Start: 03-03-2025 ambulatory Torres Vargas Facility:[facility] Start: 11-12-2024 End: 11-12-[address] Torres Vargas MD Work Phone: [facility] Work Phone: Start: 11-12-2024 End: 11-12-[address] Torres Vargas MD -[facility] Start: 11-12-2024 End: 11-12-2024 ambulatory Torres Vargas Facility:[facility] Start: 05-21-2024 End: 05-21-2024 ambulatory Torres Vargas Facility:[facility] Start: 12-02-2023 End: 12-02-2023 ambulatory [facility] Work Phone: Start: 12-02-2023 End: 12-02-2023 Patient encounter procedure [facility] Start: 08-23-2022 End: 08-24-2022 ambulatory TORRES VARGAS MD. Facility:A Start: 08-23-2022 End: 08-23-2022 Patient encounter procedure TORRES VARGAS MD [facility] Start: 08-17-2022 ambulatory TORRES VARGAS MD. Facili ty:A Start: 03-22-2022 End: 03-22-[address] Torres Vargas Work Phone: [facility] Start: 03-14-2022 End: 03-14-[address] Torres Vargas Work Phone: [facility] Start: 12-19-2021 End: 12-19-2021 Patient encounter procedure [facility]-Laboratory, Specimen Procedures Date Procedure Procedure Detail Performing Clinician Start: 11-12-[address] Torres crooks MD Work Phone: Comment on above: Nonsmokers <3.9 Smokers <5.6[employer] Electrochemiluminescence Immunoassay(ECLIA)Values obtained with different assay methods or kitscannot be used interchangeably. Results cannot beinterpreted as absolute evidence of the presence orabsence of malignant disease.Performed at: [address] [id number] Director: Medhat Burr PhD, Phone: [phone] Start: 03-22-[address] Torres Vargas Work Phone: Immunizations Immunization Date Immunization Notes Care Provider Fa cility 11-30-2020 Covid (Pfizer) [facility] 10-27-2020 Covid (Pfizer) [facility] Payers Date Payer Category Payer Self-pay [id number] 2024 Unknown [id number] 2013 Unknown [id number] 1965 Unknown [id number] Unknown [id number] Unknown [id number] Unknown [id number] Social History Date Type Detail Facility Start: 02-17-2020 End: 03-14-2022 Tobacco smoking status NHIS Unknown if ever smoked [facility] Start: 03-13-2014 None [facility] Start: 03-13-2014 Spouse/ Signif icant Other [facility] Start: 02-17-2020 Non-smoker [facility] Start: 1965 Sex Assigned At Female [facility] Start: 03-14-2022 Tobacco smoking status NHIS Never smoked tobacco (finding) [facility] Start: 11-17-2024 Sex Female (finding) [facility] Clinical Note 08-23-2022 Note Date & Type Note Facility 08-23-2022 Note Nutrition Assessment: Food intake, Carbohydrates Nutrition Diagnosis: Inconsistent carbohydrate intake related to food and nutrition knowledge deficit as evidenced by patient s 24-hour food recall presenting with consumption of extra-large portions of carbohydrate-rich foods, >45 g at some meals/snacks, skipping meals, dining out or consuming fast food > 4 times/week, eating meals/snacks at sporadic times throughout the day and patient has an A1c of __. Nutrition Intervention: The dietitian provided diabetes medical nutrition therapy (MNT) using the plate method/carb-counting method, provided appropriate portion sizes using food models and measuring cups, provided individualized meal planning methods, and recommended weight loss/weight maintenance following a reduced calorie balanced meal pattern. For weight loss/weight maintenance, ~1500 calories/day are recommended. Goals: Patient will begin recording food intake in the denisha/food diary, eating regularly scheduled meals, approximately 4-5 hours apart, aiming for 30-45g of carbohydrates/meal and using the plate/carb-counting method to help with planning balanced meals. Patient agreed to goals. Monitor & evaluate: Will monitor weight, A1c, blood sugars and evaluate patient goals PRN or at follow-up appointment. Dietitian provided medical nutrition therapy services via a telehealth online video visit. Patient authorized consent for dietitian services. [facility] Evaluation + Plan note Note Date & Type Note Facility Evaluation + Plan note No data available for this section [facility] Evaluation note Note Date & Type Note Facility Evaluation note No assessment information availa ble [facility] Work Phone: Evaluation note Note Date & Type Note Facility Evaluation note Diagnosis Onset Date Contact with and (suspected) exposure to other viral communicable diseases acute [facility] Work Phone: Hospital Discharge instructions Note Date & Type Note Facility Hospital Discharge instructions No data available for this section [facility] Reason for referral (narrative) Note Date & Type Note Facility Reason for referral (narrative) No reason for referral information available [facility] Work Phone: Chief Complaint and Reason for Visit Chief Complaint SHAVE BX R CHEST/ PE RSISTENT SKIN LESION Chief Complaint SHAVE BX R CHEST/ PE RSISTENT SKIN LESION PCR COVID TEST/SYMPTOMATIC/ILL X2DAYS screening Reason for Visit Contact with and (marie spected) exposure to other viral communicable diseases Family History No Family History Records Found Relationship Condition Age at Onset Recorded Date/T waqar Unknown Family History?Diabetes, Stroke, - Unknow n February 17, 2020 11:53am Family History?Hypertension, Stroke Unkno wn March 13, 2014 7:56pm Family History?Hypertension, Stroke Unkno wn February 17, 2020 11:53am Family History?No pertinent history Unkno wn February 17, 2020 11:53am Advance Directives No Advanced Directives Records Found Advance Directive Response Recorded Date/ Time Advance Directives Yes March 13 014 8:28pm Living Will Yes February 17, 2020 1 1:53am 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 February 17, 2020 11:53am Advance Directive Response Recorded Date/ Time Advance Directives Yes March 13 014 8:28pm Summary Purpose Additional Source Comments Goals (unrecognized section and content) Goals may be documented in a n alternate sectionGoals may be documented in an alternate section No data available for this sectionGoals may be documented in an alternate sectionGoals may be documented in an alternate section INFORMATION SOURCE (unrecogn ized section and content) DATE CREATED AUTHOR 09/28/2022 [facility] ([place]) DATE CREATED AUTHOR 'S SINGH ATION 03/02/2025 [facility] Care Teams (unrecognized sec tion and content) Team Status: Active Member Role Status Dates Dr. Torres Vargas MD Family Provider Active Dr. Torres Vargas MD Primary Care Provider Active Team Status: Inactive Member Role Status Dates Dr. Torres Vargas MD Primary Care Provider, Attending Pardeep alva Active Team Status: Inactive Member Role Status Dates Dr. Torres Vargas MD Primary Care Provider Active Start: November 12, 2024 End: November 12, 2024 Dr. Torres Vargas MD Attending Provider Active St art: November 12, 2024 End: November 12, 2024 Dr. Torres Vargas MD Referring Provider Active St art: November 12, 2024 End: November 12, 2024 FOR RECORDS PERTAINING TO PATIENTS WHO ARE OR HAVE BEEN ENROLLED IN A CHEMICAL DEPENDENCY/SUBSTANCEABUSE PROGRAM, SOME INFORMATION MAY BE OMITTED. This clinical summary was aggregated from multiple sources. Caution should be exercised in using it in the provision of clinical care. This summary normalizes information from multiple sources, and as a consequence, information in this document may materially change the coding, format and clinical context of patient data. In addition, data may be omitted in some cases. CLINICAL DECISIONS SHOULD BE BASED ON THE PRIMARY CLINICAL RECORDS. [employer] provides no warranty or guarantee of the accuracy or completeness of information in this document.
[2025-03-03] MEDS: Lactated Ringers 1,000 ML 15 ML IV (06:49)
--- NOTE | 2025-03-03 07:15 | PCM.PRE.AN2 ---
ASA Classification* ASA Classification ASA Classification: 2 Assessment & Plan Anesthesia* Anesthesia Assessment Anesthesia Assessment: Discussed sedation and/or anesthesia options, risks, benefits, and alternatives with patient/parents/legal guardian/POA. Questions invited. The patient/parents/legal guardian/POA seems to understand and agrees to proceed with anesthesia plan. Reviewed the physical assessment, medical history, allergy history and patient home medications list prior to surgery/procedure/anesthetic and documented any changes. Performed airway and anesthesia risk assessments. Anesthesia Type Anesthesia Type: MAC History Source History Obtained from:: Patient and Chart Anesthesia Focused Assessment* Temperature: 97.2 F Pulse Rate: 90 Blood Pressure: 141/77 Respiratory Rate: 20 Pulse Ox: 99 Oxygen Delivery Method: Room Air Airway Assessment Mouth opens: >3 cm Mallampati Score: IV Teeth Condition: Caps/Crowns (Patient has couple crowns. They are tight.) and Implants (Left lower implant is tight.) Neck Range of motion (ROM): Full ROM Labs Anesthesia Preop lab: CBC WBC 9.7 K/mm3 (4.4-11.0) 04/25/21 08:26 04/25/21 RBC 4.37 M/mm3 (4.2-5.4) 04/25/21 08:26 04/25/21 Hgb 12.8 g/dL (12.0-15.0) 04/25/21 08:26 04/25/21 Hct 38.6 % (37-47) 04/25/21 08:26 04/25/21 Plt Count 227 K/mm3 (150-450) 04/25/21 08:26 04/25/21 CHEMISTRY Potassium 4.2 mmol/L (3.3-5.1) 11/12/24 13:48 11/12/24 Sodium 139 mmol/L (133-145) 11/12/24 13:48 11/12/24 Magnesium 1.8 mg/dL (1.8-2.4) 03/28/15 10:16 03/28/15 BUN 12 mg/dL (4-19) 11/12/24 13:48 11/12/24 Creatinine 0.67 mg/dL (0.70-1.20) L 11/12/24 13:48 11/12/24 Glucose 132 mg/dL (70-99) H 11/12/24 13:48 11/12/24 TSH 1.44 uIU/mL (0.358-3.74) 05/15/23 08:40 05/15/23 COAG Pre-Assessment Diagnosis/Proposed Procedure Planned Operative Procedure(s): COLONOSCOPY-OA Anesthesia History 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 When Was Last Pacemaker Check QUESTION #4 FULL TEXT: You/Your Family Experience fever (hyperthermia) with Anesthesia Last Oral Intake Last Oral intake: Last Oral Intake NPO since 23:30 03/03/25 06:38 Meds taken in AM with sips of water? Meds patient instructed to take am of surgery Any additional information?: Yes Meds taken in AM with sips of water?: Yes Meds patient instructed to take am of surgery: Losartan PONV PONV - downstairs maid: PONV - downstairs maid Female Yes 03/01/25 12:49 HX of Motion Sickness No 03/01/25 12:49 HX of N/V After Surgery No 03/01/25 12:49 Non-Smoker No 03/01/25 12:49 Duration of Surgery greater No 03/01/25 12:49 than 60 minutes Number of Risk Factors 1 03/01/25 12:49 PONV Score Low Risk 03/01/25 12:49 Height & Weight Height & Weight: Anesthesia: Height & Weight Height 5 ft 6 in 03/03/25 06:38 Weight: 86 kg 03/03/25 06:38 Body Mass Index (BMI) 30.6 03/03/25 06:38 Respiratory Assessment Respiratory Assessment - downstairs maid: Respiratory Tract Infection Hx - downstairs maid Hx Respiratory Tract Infection No 03/01/25 12:49 STOP Sleep Apnea STOP Sleep Apnea - downstairs maid: STOP Sleep Apnea - downstairs maid Hx Hypertension Yes: ON MED, CONTROLLED 03/01/25 12:49 Hx Sleep Apnea No 03/01/25 12:49 CPAP No 03/01/25 12:49 BIPAP No 03/01/25 12:49 Do you snore loudly (louder No 03/01/25 12:49 than talking or can be heard Do you often feel tired/ No 03/01/25 12:49 fatigued/ sleepy during daytime? Has anyone observed you stop No 03/01/25 12:49 breathing during sleep? STOP Results Negative 03/01/25 12:49 QUESTION #5 FULL TEXT : Do you snore loudly (louder than talking or can be heard through closed doors)? 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 Specify any problems Hx of Preganancy in last 3 No 03/01/25 12:49 Months Nurse Filling Out Transfusion VCHRISTIN 03/01/25 12:49 & Questions: Date: 03/01/25 03/01/25 12:49 Time: 12:50 03/01/25 12:49 Patient unable to answer at this time (ie. confused, unrespo /Reproduction History /Reproductive History - downstairs maid: /Reproductive Hx- downstairs maid Hx Now No 03/01/25 12:49 Gestational Age (in weeks): EDC: Hx Hx Para Hx Section SAB No 03/01/25 12:49 Active Medications Active Medications: Current Medications Generic Name Dose Route Start Last Admin Trade Name Freq PRN Reason Stop Dose Admin Lactated Ringer's 1,000 mls @ 15 mls/hr 03/03/25 06:30 03/03/25 06:49 IV 15 mls/hr .Q48H ELEAZAR Administration PFSH Medical History Wears glasses Cancer Arthritis Back pain TIA (transient ischemic attack) Non-smoker Chronic cough Hypertension Family hx of colon cancer Family history of uterine fibroid Contact with and (suspected) exposure to other viral communicable diseases Home Medications Medication Instructions Recorded Last Taken Type aspirin 81 mg chewable tablet 81 mg PO DAILY@0800 10/31/13 02/25/25 History metformin 500 mg tablet 500 mg PO BIDCM 10/31/13 03/01/25 History losartan 50 mg tablet 50 mg PO DAILY 02/17/20 03/03/25 History psyllium husk 0.52 gram capsule 0.52 gm PO DAILY 02/17/20 03/01/25 History rosuvastatin 5 mg tablet 5 mg PO QHS 02/17/20 03/02/25 History saxagliptin 5 mg tablet 5 mg PO DAILY 03/01/25 03/02/25 History Allergy/AdvReac Type Severity Reaction Status Date / Time adhesive Allergy Rash Verified 03/03/25 06:37 naproxen Allergy Rash Verified 03/03/25 06:37 Surgical History Hx of wisdom tooth extraction Hx of dilation and curettage Hx of total knee arthroplasty History of back surgery History of colon resection Hx of hysterectomy Hx of right knee surgery Hx of knee surgery Hx of appendectomy Hx of tonsillectomy Hx of colonoscopy Social History Smoking Status: Never smoker Review of Systems (Anesthesia) ROS Narrative System reviewed and no additional complaints, except as documented.
--- NOTE | 2025-03-03 07:20 | H&P.OPEN ---
[facility] - General General Date of Service: 03/03/25 HPI Narrative VIRI CHERRY, is a 60 F who presents for surveillance colonoscopy due to history of rectal cancer in 2013 at [facility]–low anterior resection with a diverting ileostomy stage I. Patient's last colonoscopy was in 2019 negative per patient. Patient denies any chronic abdominal pain/nausea/vomiting/reflux. Patient has bowel movements daily denies any blood. [facility] Medical History Wears glasses Cancer Arthritis Back pain TIA (transient ischemic attack) Non-smoker Chronic cough Hypertension Family hx of colon cancer Family history of uterine fibroid Contact with and (suspected) exposure to other viral communicable diseases Home Medications Medication Instructions Recorded Last Taken Type aspirin 81 mg chewable tablet 81 mg PO DAILY@0800 10/31/13 02/25/25 History metformin 500 mg tablet 500 mg PO BIDCM 10/31/13 03/01/25 History losartan 50 mg tablet 50 mg PO DAILY 02/17/20 03/03/25 History psyllium husk 0.52 gram capsule 0.52 gm PO DAILY 02/17/20 03/01/25 History rosuvastatin 5 mg tablet 5 mg PO QHS 02/17/20 03/02/25 History saxagliptin 5 mg tablet 5 mg PO DAILY 03/01/25 03/02/25 History Allergy/AdvReac Type Severity Reaction Status Date / Time adhesive Allergy Rash Verified 03/03/25 06:37 naproxen Allergy Rash Verified 03/03/25 06:37 Surgical History Hx of wisdom tooth extraction Hx of dilation and curettage Hx of total knee arthroplasty History of back surgery History of colon resection Hx of hysterectomy Hx of right knee surgery Hx of knee surgery Hx of appendectomy Hx of tonsillectomy Hx of colonoscopy Social History Smoking Status: Never smoker Past Medical/Surgical History Planned Operation Planned Operative Procedure(s): COLONOSCOPY-OA S.O.S: No Previous Hospitalizations/Surgeries HX Hospitalizations: No HX of Surgeries: tonsillectomy at age 3, childbirthx2, appendectomy in , left knee arthroplasty/torn miniscus , hysterectomy except ovaries, colorectal surgery, ileostomy (December 31), rev. ileostomy (February 2014) 02/05/[address] MARTIN Any Problems With Anesthesia: No You/Your Family Experience Fever (Hyperthermia) With Anes: No Cholinesterase deficiency: No Cardiovascular Hx Chest Pain within Last 2 months: No Hx of Irregular Heartbeat and/or Afib: No Hx Heart Attack: No Hx Congestive Heart Failure: No Hx Rheumatic Fever: No Hx Hypertension: Yes (ON MED, CONTROLLED) Hx Internal Defibrillator: No Hx Pacemaker: No Hx Cardiac Catheterization: No Hx Cardiac Surgery/Stents/Etc.: No Hx Stress Test: No Hx Pain in Legs when Walking/Leg Cramps: No Respiratory Chronic Cough: No HX of Shortness of Breath: No Hoarseness: No Hx Chronic Obstructive Pulmonary Disease (COPD): No Hx Asthma: No Hx Emphysema: No Hx Sleep Apnea: No CPAP: No BIPAP: No Hx Respiratory Tract Infection/Cold (presently): No Do You Snore Loudly (louder than talking or can be heard): No Do You Often Feel Tired/ Fatigued/ Sleepy Dring Daytime?: No Has Anyone Observed You Stop Breathing During Sleep?: No Result (for STOP score): Negative Hx Smoking: No Smoking Status: Never smoker Gastrointestinal Controlled With Meds: No Hx Gastrointestinal Disorders: No Hx Gastrointestinal Bleed: No Hx Ulcer: No Hx Hiatal Hernia: No Difficulty Chewing/Swallowing: No Special diet followed at home: Yes (LOW SUGAR) Hx Unplanned Weight Loss of 20#: No HX Unplanned Weight Gain of 20#: No Neurological Hx Seizures: No HX Syncope/Blackout Spells/Unconsciousness: No Hx Transient Ischemic Attacks (TIA): Yes Hx Multiple Sclerosis: No Hx Parkinson's Disease: No Hx Head/Neck Injury: No Hx Headaches: No Hx Back Injury/Pain: Yes (RECENT INJ FOR PAIN) Recent Onset of Speech Difficulty: No Restless Legs: No Does patient have nerve stimulator: No Blood Disorder Hx Leukemia: No Bleeding Tendencies: No Hx Deep Vein Thrombosis: No Hx High Cholesterol: Yes (ON MED) Blood Transmitted Disease: No Hx Hepatitis: No Hx Cirrhosis: No Hx Anemia: No Hx Blood Disorders: No Reproduction : No Is Patient Lactating: No Hx Hysterectomy: Yes Hx Tubal Ligation: No Are You Post Menopause: Yes Genitourinary Hx Renal Disease: No Hx Dialysis: No Musculoskeletal Hx Arthritis: Yes (LT KNEE) Hx Rheumatoid Arthritis: No Hx Gout: No Recent Onset of an Orthopedic Problem: No Endocrine Hx Diabetes: Yes (PRE-DIABETIC) Insulin: No Thyroid Disease: No Hx Steroid Therapy: Yes (INJ PER DR. MARTIN) Psycho/Social Hx Substance Use: No Hx Alcohol Use: No Hx Anxiety: No Hx Depression: No Mental Illness: No Hx Dementia: No Miscellaneous Hx Cancer: Yes (COLO/RECTAL CA DIAGNOSIS 2013) Recent Exposure to Contagious Disease: No Hx of C-Diff: Yes (2013) Any Loose Teeth: No Allergies adhesive Allergy (Verified 03/03/25 06:37) Rash Electrical grounding pad naproxen Allergy (Verified 03/03/25 06:37) Rash Maternal: Hypertension and Stroke Paternal: Diabetes, Stroke and - Sibling: No pertinent history Discharge Is Pt Admitted From a Longterm, or a [facility]: No After D/C, Where Do you Plan to Go: Return Home From the PAT History Number of Risk Factors: 3 Vital Signs Vital Signs Vital Signs: 03/03/25 06:38 03/03/25 06:38 Temperature 97.2 F L Temperature Source Temporal Pulse Rate 90 Respiratory Rate 20 H Respiratory Pattern Normal Blood Pressure 141/77 H Blood Pressure Mean 98 Blood Pressure Source Monitor Blood Pressure Position Semi-Fowlers Blood Pressure Location Right Arm Pulse Ox 99 Oxygen Delivery Method Room Air Weight Weight: 189 lb 9.561 oz Body Mass Index (BMI) 30.6 Physical Exam Const alert, oriented x3 and no apparent distress HEENT normocephalic and head/scalp atraumatic Resp normal respiratory effort Cardio regular rate GI soft to palpation and non-tender; Negative for non-distended Palpation: Negative for guarding Extremity no clubbing, cyanosis or edema Skin no rashes or lesions noted Neuro CN's II-XII intact bilaterally Psych mental status grossly normal Assessment & Plan Assessment/Plan (1) Personal history of rectal cancer: Surgery Risks - Colonoscopy I discussed with the patient the risks of the procedure: Yes Risks Include but are not Limited To: Risks include but are not limited to: Bleeding, perforation requiring further surgery, inability to complete colonoscopy requiring barium enema.
--- NOTE | 2025-03-03 08:25 | OP.CCLET_ITS ---
03/03/2025 Guerrero Vargas [address] [place] [address] Re : Colonoscopy procedure for Celestina Ferguson Dear Dr. Vargas This procedure was performed on Monday, March 03, 2025. My impressions and recommendations are as follows: Impressions : - Hemorrhoids found on perianal exam. - Non-bleeding internal hemorrhoids. - Patent end-to-end low-anterior anastomosis. - The entire examined colon is normal. - No specimens collected. Recommendations : - Discharge patient to home. - Resume previous diet. - Continue present medications. - Await pathology results. - Repeat colonoscopy in 5 years for surveillance. My findings are described in the full procedure note, which is enclosed. If I can be of further assistance, please feel free to contact me at Doctor phone number(s): , Work: . Sincerely, MD Whitney Patterson MD 03/03/2025 8:24:37 AM This report has been signed electronically.
--- NOTE | 2025-03-03 08:25 | OP.COLON_ITS ---
Patient Name: Celestina Ferguson Procedure Date: 03/03/2025 7:52 AM Date of : 1965 Age: 60 Procedure: Colonoscopy Indications: High risk colon cancer surveillance: Personal history of colon cancer Providers: Whitney Alcazar MD Referring MD: Guerrero Vargas Medicines: Monitored Anesthesia Care Patient Profile: This is a 60 year old female. Last Colonoscopy: February 2020. She is status post LAR for rectal cancer 2013. Complications: No immediate complications. Procedure: Pre-Anesthesia Assessment: - Prior to the procedure, a History and Physical was performed, and patient medications and allergies were reviewed. The patient's tolerance of previous anesthesia was also reviewed. The risks and benefits of the procedure and the sedation options and risks were discussed with the patient. All questions were answered, and informed consent was obtained. Prior Anticoagulants: The patient has taken no anticoagulant or antiplatelet agents. ASA Grade Assessment: Per anesthesia. After reviewing the risks and benefits, the patient was deemed in satisfactory condition to undergo the procedure. After I obtained informed consent, the scope was passed under direct vision. Throughout the procedure, the patient's blood pressure, pulse, and oxygen saturations were monitored continuously. The Colonoscope was introduced through the anus and advanced to the cecum, identified by the appendiceal orifice, ileocecal valve and palpation. The colonoscopy was performed without difficulty. The patient tolerated the procedure well. The quality of the bowel preparation was good. Scope In: 8:01:02 AM Scope Withdrawal Time 0 hours 12 minutes 50 seconds Scope Out: 8:18:32 AM Total Procedure Duration Time 0 hours 17 minutes 30 seconds Findings: Hemorrhoids were found on perianal exam. Non-bleeding internal hemorrhoids were found. The hemorrhoids were Grade I (internal hemorrhoids that do not prolapse). There was evidence of a prior end-to-end low-anterior anastomosis in the rectum. This was patent. The entire examined colon appeared normal. Impression: - Hemorrhoids found on perianal exam. - Non-bleeding internal hemorrhoids. - Patent end-to-end low-anterior anastomosis. - The entire examined colon is normal. - No specimens collected. Recommendation: - Discharge patient to home. - Resume previous diet. - Continue present medications. - Await pathology results. - Repeat colonoscopy in 5 years for surveillance. Procedure Code(s): --- Professional --- G0105, PT, Colorectal cancer screening; colonoscopy on individual at high risk Diagnosis Code(s): --- Professional --- Z85.038, Personal history of other malignant neoplasm of large intestine K64.0, First degree hemorrhoids Z98.0, Intestinal bypass and anastomosis status CPT copyright 2021 [employer]. All rights reserved. The codes documented in this report are preliminary and upon director of catering sales review may be revised to meet current compliance requirements. MD Whitney Patterson MD 03/03/2025 8:24:37 AM This report has been signed electronically. Number of Addenda: 0 Note Initiated On: 03/03/2025 7:52 AM
--- NOTE | 2025-03-03 08:26 | PCM.POST.ANE ---
Anesthesia: Postop Eval I Current Vital Signs Temperature: 97.1 F Pulse Rate: 81 Blood Pressure: 115/74 Respiratory Rate: 16 Pulse Ox: 98 Oxygen Delivery Method: Room Air Assessment Airway patent: Yes Spontaneous unlabored respirations: Yes Mental status: Awake and Calm nausea: No Vomiting: No Anesthesia Complication: No Fluid Hydration Crystalloid volume administer (ml): 500 Total IV fluid infused: 500 Progress Note Anesthesia document: Postop Eval 1 completed: Yes
--- NOTE | 2025-03-03 18:36 | PCM.POSTANE2 ---
Anesthesia Postop Eval I Sum Postop Eval Completion status Anesthesia document: Postop Eval 1 completed: Yes Anesthesia Postop Eval I Summary Anesthesia Postop Eval I Summary: Anesthesia Postop Eval I: Assessment Summary Airway patent Yes 03/03/25 08:27 [email or web address] Spontaneous unlabored Yes 03/03/25 08:27 [email or web address] respirations Mental status Awake,Calm 03/03/25 08:27 [email or web address] nausea No 03/03/25 08:27 [email or web address] Vomiting No 03/03/25 08:27 [email or web address] Anesthesia Postop Eval I: Fluid Summary Crystalloid volume administer 500 03/03/25 08:27 [email or web address] (ml) Colloids volume administered ( ml) Blood Product volume administered (ml) Total IV fluid infused 500 03/03/25 08:27 [email or web address] Anesthesia Postop Eval I: Summary Notes Anesthesia Complication No 03/03/25 08:27 [email or web address] Anesthesia Complication Comment: Post-operative progress note Anesthesia: Postop Eval II Evaluation Mental status: Awake Pain Level: 0 nausea: No Vomiting: No
== END 2025-03-03 09:20 | disposition home or self-care (01) ==
LOC: EN 06:14 → AC 06:15
PROVIDERS: PCP Family Medicine; Referring Provider Family Medicine; Visit Provider Surgery
PROC: 0DJD8ZZ Inspection of Lower Intestinal Tract, Via Natural or Artificial Opening Endoscopic (ICD-10-PCS; CPT 45378; principal; 2025-03-03 07:25)
DX: Z12.11 Encounter for screening for malignant neoplasm of colon (principal); K64.0 First degree hemorrhoids; Z90.710 Acquired absence of both cervix and uterus; Z80.0 Family history of malignant neoplasm of digestive organs; I10 Essential (primary) hypertension; Z86.73 Personal history of transient ischemic attack (TIA), and cerebral infarction without residual deficits; Z79.82 Long term (current) use of aspirin; Z79.899 Other long term (current) drug therapy; Z96.659 Presence of unspecified artificial knee joint; Z90.49 Acquired absence of other specified parts of digestive tract; Z85.048 Personal history of other malignant neoplasm of rectum, rectosigmoid junction, and anus; K64.4 Residual hemorrhoidal skin tags
CPT/HCPCS: 45378; 82962; J2405

== ENCOUNTER → 2025-07-07 | Outpatient (CLI) | payer OTHER, SELFPAY ==
--- NOTE | 2025-07-07 06:46 | ECHOL_ITS ---
Reason For Study Reason For Study: Abnormal CCTA Procedure This was a limited 2D transthoracic echocardiogram. Exam performed in department. Left Ventricle Normal size and thickness. The left ventricular ejection fraction is 55 %. Right Ventricle Normal right ventricle. Atria The left and right atria are normal. Mitral Valve Moderate focal mitral valve calcification of the anterior leaflet. Trivial mitral valve insufficiency. Tricuspid Valve Normal tricuspid valve. Aortic Valve Trisinus/trileaflet aortic valve. Pulmonic Valve The pulmonic valve is not well visualized. Great Vessels Normal sized aortic root. Pericardium/Pleural No pericardial effusion. MMode/2D Measurements & Calculations LVIDd: 4.9 cm IVSd: 1.0 cm Ao root diam: 3.3 cm LVIDs: 3.2 cm LVPWd: 1.1 cm FS: 34.8 % LAV(MOD-sp4): 43.6 ml LVAd ap4: 26.4 cm2 SV(MOD-sp4): 41.8 ml LVLd ap4: 7.4 cm SI(MOD-sp4): 21.1 ml/m2 EDV(MOD-sp4): 74.3 ml EDV(sp4-el): 79.1 ml LVAs ap4: 15.5 cm2 LVLs ap4: 6.3 cm ESV(MOD-sp4): 32.5 ml ESV(sp4-el): 32.4 ml EF(MOD-sp4): 56.3 % EF(sp4-el): 59.0 % SV(sp4-el): 46.7 ml LA A4 area: 16.6 cm2 RA A4 area: 13.3 cm2 ECHO/Echo, Limited Study Interpretation Summary Limited 2D echocardiogram. The left ventricular ejection fraction is 55 %. Moderate focal alcification of the anterior mitral valve leaflet. Ordering Physician: Nikki Torres Referring Physician: Guerrero Vargas Performed By: Adolph Cordova RCS
--- OUTSIDE RECORDS SUMMARY | 2025-07-07 06:50 | XMS RPT_ITS | CCD ---
Author Organization [facility] Care Team Providers Care Bariatric Physician Name Role Phone Dr. Torres Vargas Primary Care Provider [phone] Dr. Torres Vargas Referring Provider Rosana REAGAN, MERARY Duff Attending Provider ZHEN GUEVARA, TORRES Panda Attending Unavailable ZHEN GUEVARA, TORRES A Attending Unavailable Dr. Torres Vargas MD Primary Care Provider Dr. Torres Vargas MD Attending Provider [phone] Dr. Torres Vargas MD Referring Provider Dr. Whitney Alcazar MD Attending Provider Dr. Whitney Alcazar MD Other Provider Vargas, Torres Primary Care Unavailable Brian, Nikki Attending Unavailable Vargas, Torres Referring Unavailable Vargas, Torres Referring Unavailable Vargas, Torres Primary Care Unavailable Whitney Alcazar Consulting Unavailable Whitney Alcazar Attending Unavailable Vargas, Torres Referring Unavailable Vargas, Torres Primary Care Unavailable Whitney Alcazar Attending Unavailable Vargas, Torres Referring Unavailable Vargas, Torres Primary Care Unavailable Vargas, Torres Attending Unavailable Vargas, Torres Primary Care Unavailable Brian, Nikki Attending Unavailable Brian, Nikki Referring Unavailable Vargas, Torres Referring Unavailable Vargas, Torres Primary Care Unavailable Vargas, Torres Attending Unavailable Allergies Allergy Classification Reported Allergen(s) Allergy Type Date of Onset Reaction(s) Facility (5 sources) Naproxen Drug Allergy 0 [facility] (2 sources) ELECTRICAL 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 Comment on above: Electrical grounding pad (1 source) drospirenone Drug Allergy 5 [facility] Repository (1 source) Ethinyl Estradiol Drug Allergy 5 [facility] Repository (1 source) nabumetone Drug Allergy 5 [facility] Repository (1 source) Naproxen Drug Allergy 5 [facility] Repository Medications Current Medications Medication Drug Class(es) Dates Sig (Normalized) Sig (Original) aspirin 81 mg chewable tablet (5 sources) Platelet Aggregation Inhibitor, Nonsteroidal Anti-inflammatory Drug Start: 10-31-2013 take 1 tablet by mouth once daily Aspirin 81 MG tablet,chewable Active 81 mg PO DAILY@0800 October 31, 2013 12:00am losartan potassium 50 mg oral tablet (5 sources) Angiotensin 2 Receptor Jeannie Start: 02-17-2020 take 1 tablet by mouth once daily Losartan 50 MG tablet Active 50 mg PO DAILY February 17, 2020 12:00am metFORMIN hydrochloride 500 mg oral tablet (5 sources) Biguanide Start: 10-31-2013 take 1 tablet by mouth twice daily at mealtime Metformin 500 MG tablet Active 500 mg PO TWICE DAILY WITH MEALS October 31, 2013 12:00am psyllium 520 mg oral capsule (5 sources) Start: 02-17-2020 Psyllium Husk 0.52 GM capsule Active 0.52 g PO DAILY February 17, 2020 12:00am rosuvastatin calcium 5 mg oral tablet (5 sources) HMG-CoA Reductase Inhibitor Start: 02-17-2020 take 1 tablet by mouth at bedtime Rosuvastatin 5 MG tablet Active 5 mg PO AT BEDTIME February 17, 2020 12:00am sAXagliptin 5 mg oral tablet (1 source) Dipeptidyl Peptidase 4 Inhibitor Start: 03-01-2025 take 1 tablet by mouth once daily Saxagliptin 5 mg tablet Active 5 mg PO DAILY March 01, 2025 12:00am Completed/Discontinued Medications Medication Drug Class(es) Dates Sig (Normalized) Sig (Original) cloNIDine hydrochloride 0.2 mg oral tablet (5 sources) Central alpha-2 Adrenergic Agonist Start: 0 End: 5 take 1 tablet by mouth once daily Clonidine Hcl 0.2 MG tablet Discontinued 0.2 mg PO DAILY February 17, 2020 12:00am March 01, 2025 12:37pm ferrous sulfate 325 mg oral tablet (5 sources) Start: 4 End: 4 take 1 tablet by mouth every other day Ferrous Sulfate (Iron Supplement) 325 MG tablet Discontinued 325 mg PO EVERY OTHER DAY October 31, 2013 12:00am March 15, 2014 3:23pm hydroCHLOROthiazide 12.5 mg oral capsule (5 sources) Thiazide Diuretic Start: 4 End: 4 take 1 capsule by mouth every other day Hydrochlorothiazide 12.5 MG capsule Discontinued 12.5 mg PO EVERY OTHER DAY October 31, 2013 12:00am March 15, 2014 3:23pm SITagliptin 100 mg oral tablet (5 sources) Dipeptidyl Peptidase 4 Inhibitor Start: 0 End: 5 take 1 tablet by mouth once daily Sitagliptin Phosphate 100 MG tablet Discontinued 100 mg PO DAILY February 17, 2020 12:00am March 01, 2025 12:36pm Problems Problem Classification Problem Date Documented Da te Episodic/Chronic Anxiety disorders (5 sources) Anxiety; Translations: [Anxiety disorder, unspecified] 02-23-2020 Chronic Cancer of rectum and anus (5 sources) Malignant tumor of rectum; Translations: [Malignant neoplasm of rectum] 02-23-2020 Chronic Cancer of rectum and anus (7 sources) History of malignant neoplasm of digestive organ; Translations: [Personal history of other malignant neoplasm of rectum, rectosigmoid junction, and anus] Onset: 03-24-2025 02-23-2020 Episodic Comment on above: In 2013 status post LAR and diverting ileostomy, stage I Diabetes mellitus with complications (1 source) Type 2 diabetes mellitus with other diabetic kidney complication; Translations: [Type 2 diabetes mellitus with other diabetic kidney complication] Onset: 11-17-2024 Chronic Diabetes mellitus without complication (1 source) Type 2 diabetes mellitus without complications; Translations: [Type 2 diabetes mellitus without complications] Onset: 06-18-2025 Chronic Diabetes mellitus without complication (5 sources) Prediabetes; Translations: [Prediabetes] 02-23-2020 Episodic Disorders of lipid metabolism (2 sources) Hyperlipidemia, unspecified; Translations: [Pure hypercholesterolemia, unspecified] Onset: 04-22-2025 Chronic Essential hypertension (7 sources) Hypertensive disorder; Translations: [Essential (primary) hypertension] Onset: 06-17-2025 02-23-2020 Chronic Immunizations and screening for infectious disease (5 sources) Contact with and (suspected) exposure to other viral communicable diseases; Translations: [Contact with or suspected exposure to other viral communicable disease] Episodic Other circulatory disease (5 sources) History of cerebrovascular accident without residual deficits; Translations: [Personal history of transient ischemic attack (TIA), and cerebral infarction without residual deficits] 02-23-2020 Episodic Other gastrointestinal disorders (5 sources) Diarrhea; Translations: [Diarrhea, unspecified] 02-23-2020 Episodic Other lower respiratory disease (1 source) Other forms of dyspnea; Translations: [Other forms of dyspnea] Onset: 06-18-2025 Episodic Other screening for suspected conditions (not mental disorders or infectious disease) (2 sources) Abnormal findings on diagnostic imaging of heart and coronary circulation; Translations: [Encounter for screening for malignant neoplasm of colon] Onset: 03-24-2025 Episodic Syncope (5 sources) Syncope; Translations: [Syncope and collapse] 02-23-2020 Episodic Results Test Name Value Interpretation Reference Range Facility Cardiology Visit Reporton Cardiology Visit Report [facility] [address] [place] [address] OFFICE VISIT Date of Service: 06/17/25 MR#: [id number] Acct: [id number] Name: CELESTINA CHERRY Rep #: [id number] : 1965 Provider: Dr. Nikki Torres MD Age/Sex: 60/F [place] [facility] Status: Signed HPI HPI History of Present Illness Details: This pleasant lady has past medical history significant for hypertension, dyslipidemia, diabetes mellitus and cancer of the rectum. He recently has had coronary calcium scoring done. It was noted to be elevated at 453. Subsequently she has been referred to us for evaluation and management. Patient denies any chest pains either at rest or with exertion. She has some shortness of breath with strenuous activity such as walking uphill. Denies any palpitations. No orthopnea. No PND. No ankle edema. Intake Vital Signs 03/03/25 06:38 06/17/25 11:03 Height 5 ft 6 in 5 ft 6 in Weight: 195 lb BMI 31.4 BP 133/81 H Blood Pressure Location Lt brachial Position Sitting Respiration 16 Pulse 91 Pulse Source Monitor Intake Visit Reasons: ABN CCTA (ZHEN) Water Restoration Technician Required: No Accompanied by: Is patient in pain?: No Allergies nabumetone Allergy (Unknown, Verified 05/26/25 11:19) Itching, rash adhesive Allergy (Verified 03/03/25 06:37) Rash naproxen Allergy (Verified 03/03/25 06:37) Rash drospirenone (From LISBETH (28)) Adverse Reaction (Unknown, Verified 05/26/25 11:19) metrorrhagia ethinyl estradiol (From LISBETH (28)) Adverse Reaction (Unknown, Verified 05/26/25 11:19) metrorrhagia Medications ???Medication ???Instructions ???Recorded ???Confirmed ???Type aspirin 81 mg chewable tablet 81 mg PO DAILY@0800 10/31/1306/17 History metformin 500 mg tablet 500 mg PO BIDCM 10/31/13 06/17/25 History losartan 50 mg tablet 50 mg PO DAILY 02/17/20 06/17/25 H istory saxagliptin 5 mg tablet 5 mg PO DAILY 03/01/25 06/17/25 Hi story acetaminophen 500 mg tablet 1,000 mg PO ONCE PRN 05/26/2502/03 History psyllium 1 tbsp PO QAC 05/26/25 06/17/25 Hi story rosuvastatin 40 mg tablet 40 mg PO DAILY Upped from 5mg to 1 08/17/24 06/17/25 History 40mg Have you fallen in the past year?: No PFSH Medical History Hypertension TIA (transient ischemic attack) Non-smoker Syncope Trigger thumb Wears glasses Cancer Arthritis Back pain Chronic cough Family hx of colon cancer Adenocarcinoma Family history of uterine fibroid Uterine leiomyoma Contact with and (suspected) exposure to other viral communicable diseases Surgical History History of myomectomy Hx of wisdom tooth extraction Hx of dilation and curettage Hx of total knee arthroplasty History of back surgery ( 05/04/20) History of colon resection Hx of hysterectomy Hx of right knee surgery Hx of knee surgery Hx of appendectomy Hx of tonsillectomy Hx of colonoscopy Family History Father Hypertension Bladder cancer Liver cirrhosis Bleeding disorder Kidney stones Gall stones Mother Hypertension TIA (transient ischemic attack) Skin cancer Aortic dissection Brother Diabetes COPD (chronic obstructive pulmonary disease) Colon cancer Leaky heart valve Sister Hyperlipidemia Social History Smoking Status: Never smoker alcohol intake: never substance use type: does not use ROS Const Const: Negative for fatigue or weakness Eyes Eyes: Negative for change in vision ENT ENT: Negative for dizziness or balance problems Cardio Chest Pain: No Palpitations: No Edema: None Resp Respiratory: Negative for SOB with activity, SOB at rest or SOB orthopnea SOB lying down GI GI: Negative nausea or heartburn Musc Musc: Negative for balance problems Neuro Neuro: Negative for dizziness, lightheadedness, near syncope, syncope or weakness Endo Endo: Negative for fatigue Cardiology Exam Const Appearance: comfortable and no acute distress Nutritional Appearance: well nourished Neck Neck: no JVD Carotids: Negative bruit Chest Auscultation: Bilateral: Clear to Auscultation Cardio Rate: regular rate Rhythm: regular rhythm Heart sounds: S1 normal and S2 normal Neuro General: patient alert, patient awake and patient oriented x3 Extremities Lower Extremity Edema: None: Bilateral Supplemental Info Supplemental Information Labs: LDL Cholesterol, (0-130) 68 mg/dL HDL Cholesterol, (40-) 65 mg/dL Cholesterol, (<=200) 152 mg/dL Triglycerides, (-199) 97 mg/dL Diagnostics: Electrocardiogram Chest X-Ray Abdomen/Pel (more content not included)... Normal [facility] Coronary Angiography CTon Coronary Angiography CT [facility] Imaging Services [address] [place] [address] 04/29/25 1024 MR#: [id number] Acct: [id number] Name: CELESTINA CHERRY Rep #: [id number] : 1965 60 From: Titi Taylor MD PCP: Dr. Torres Vargas MD Status:REG REF Y Location: CT Calcium Scoring Date of Study:: 04/22/25 Indications Indications: Family history of hypertension diabetes Coronary Calcium Scoring: High-resolution Computed Tomographic imaging of the chest was performed on [04/22/2025], with particular attention paid to the coronary arteries. Images from the examination were analyzed for the presence and extent of coronary artery calcification , using coronary calcium quantification software. The patient tolerated the procedure well and there were no complications. The results of the coronary calcification analysis are provided below. Findings Coronary Artery Left Main (LM): 0 Left Anterior Descending (LAD): 348 Left Circumflex (LCX): 9.5 Right Coronary Artery (RCA): 96.4 Total Agatston Score: 453.9 Percentile Ranking: Greater than 90th percentile Calcium Scoring Interpretation: Different methods to categorize the overall amount of coronary plaque. Overall amount CAC SIS Visual of coronary plaque P1 Mild -100 <2 1-2 vessels with mild amount of plaque P2 Moderate 101-300 3-4 1-2 vessels with moderate amount, 3 vessels with mild amount of plaque P3 Severe 301-999 5-7 3 vessels with moderate amount, 1 vessel with severe amount of plaque P4 Extensive >1000 >8 2-3 vessels with severe amount of plaque Calcium Score: Severe: 3 vessels w/moderate amount, 1 vessel w/severe amt of plaque Conclusion: 1 vessel with moderately severe plaque in 2 vessels with mild plaque noted 04/29/25 1025 Date Titi Taylor MD Cosigner Signature (if applicable): Date CC: Dr. Titi Taylor MD; Dr. Torres Vargas MD Signed Normal [facility] Limited Chest CT Cardiac Onl yon 04-22-[address] Cardiac Only [facility] Imaging Services [address] [place], [place] [id number] Limited Chest CT Cardiac Only MR#: [id number] Acct: [id number] Name: CELESTINA CHERRY Rep #: [id number] : 1965 F 60 From: Jose Martin Mcwilliams PCP: Dr. Torres Vargas MD Status: REG REF Study: Limited Chest CT Cardiac Only Date of Exam: Exam# [id number] Ordering Dr: Torres Vargas MD PROCEDURE: LIMITED CHEST CT CARDIAC ONLY 04/22/2025 REASON FOR EXAM: PURE HYPERCHOLESTEROLEMIA TECHNIQUE: Procedure Code: [id number] Modality: CT Procedure: LIMITED CHEST CT CARDIAC ONLY CT performed for coronary artery calcium scoring. One or more dose reduction techniques were used (e.g., Automated exposure control, adjustment of the mA and/or kV according to patient size, use of iterative reconstruction technique). RADIATION DOSE SUMMARY: CTDlvol: 12.19 mGy DLP: 219.42 mGycm COMPARISON: None. CT/Limited Chest CT Cardiac Only IMPRESSION: Limited imaging of the lungs demonstrates no acute process. No pleural effusion or pneumothorax is seen in visualized areas. No adenopathy is noted. The visualized upper abdomen demonstrates no significant abnormality. Reading Location: [place] [address] CC: Dr. Torres Vargas MD Supervisor Concrete Block Plant: Signed Normal [facility] Bedside Glucoseon 03-03-2025 FINGERSTICK GLU 159 mg/dL High 74-106 [facility] Comment on above: Result Comment: MANDO MORRIS OF PATIENT CARE PER NURSING PROTOCOL Performed By: #### L 501.080 #### [facility] Laboratory [address] [place], [place], [id number] Colonoscopy Reporton [address] [facility] Medical Records Department [address] [place] [address] Colonoscopy Report MR#: [id number] Acct: [id number] Name: CELESTINA CHERRY Rep #: [id number] : 1965 60 From: Whitney Alcazar MD PCP: Dr. Torres Vargas MD Status[place] [facility] [place] Name: Celestina Cherry Procedure Date: 03/03/2025 7:52 AM Date of : 1965 Age: 60 Procedure: Colonoscopy Indications: High risk colon cancer surveillance: Personal history of colon cancer Providers: Whitney Alcazar MD Referring MD: oTrres Vargas Medicines: Monitored Anesthesia Care Patient Profile: This is a 60 year old female. Last Colonoscopy: February 2020. She is status post LAR for rectal cancer 2013. Complications: No immediate complications. Procedure: Pre-Anesthesia Assessment: - Prior to the procedure, a History and Physical was performed, and patient medications and allergies were reviewed. The patient's tolerance of previous anesthesia was also reviewed. The risks and benefits of the procedure and the sedation options and risks were discussed with the patient. All questions were answered, and informed consent was obtained. Prior Anticoagulants: The patient has taken no anticoagulant or antiplatelet agents. ASA Grade Assessment: Per anesthesia. After reviewing the risks and benefits, the patient was deemed in satisfactory condition to undergo the procedure. After I obtained informed consent, the scope was passed under direct vision. Throughout the procedure, the patient's blood pressure, pulse, and oxygen saturations were monitored continuously. The Colonoscope was introduced through the anus and advanced to the cecum, identified by the appendiceal orifice, ileocecal valve and palpation. The colonoscopy was performed without difficulty. The patient tolerated the procedure well. The quality of the bowel preparation was good. Scope In: 8:01:02 AM Scope Withdrawal Time 0 hours 12 minutes 50 seconds Scope Out: 8:18:32 AM Total Procedure Duration Time 0 hours 17 minutes 30 seconds Findings: Hemorrhoids were found on perianal exam. Non-bleeding internal hemorrhoids were found. The hemorrhoids were Grade I (internal hemorrhoids that do not prolapse). There was evidence of a prior end-to-end low-anterior anastomosis in the rectum. This was patent. The entire examined colon appeared normal. Impression: - Hemorrhoids found on perianal exam. - Non-bleeding internal hemorrhoids. - Patent end-to-end low-anterior anastomosis. - The entire examined colon is normal. - No specimens collected. Recommendation: - Discharge patient to home. - Resume previous diet. - Continue present medications. - Await pathology results. - Repeat colonoscopy in 5 years for surveillance. Procedure Code(s): --- Professional --- G0105, PT, Colorectal cancer screening; colonoscopy on individual at high risk Diagnosis Code(s): --- Professional --- Z85.038, Personal history of other malignant neoplasm of large intestine K64.0, First degree hemorrhoids Z98.0, Intestinal bypass and anastomosis status CPT copyright 2021 [employer]. All rights reserved. The codes documented in this report are preliminary and upon roll contour grinder review may be revised to meet current compliance requirements. MD Whitney Patterson MD 03/03/2025 8:24:37 AM This report has been signed electronically. Number of Addenda: 0 Note Initiated On: 03/03/2025 7:52 AM 03/03/25823 Date Whitney Alcazar MD Cosigner Signature: Date (if indicated) CC: Dr. Torres Vargas MD; Dr. Whitney Alcazar MD Date Dictated: 03/03/25751 Date Transcribed: Supervisor Concrete Block Plant: TR Signed Normal [facility] Gl[facility] deOrdered By: Whitney Alcazar on 03-03-2025 Glucose [Mass/Vol] 159 mg/dL High 74-106 [facility] Comment on above: MANAGEMENT OF PATIEN T CARE PER NURSING PROTOCOL MR/POSTOP.ANEon 03-03-2025 MR/POSTOP.[facility] Medical Records Department [address] [place] [address] Anesthesia Postop Eval I 03/03/25825 MR#: [id number] Acct: [id number] Name: CELESTINA CHERRY Rep #: [id number] : 1965 60 From: Obey Nagel PCP: Dr. Torres Vargas MD Status:REG SDC Y Race: C Location: [place] [address] Anesthesia: Postop Eval I Current Vital Signs Temperature: 97.1 F Pulse Rate: 81 Blood Pressure: 115/74 Respiratory Rate: 16 Pulse Ox: 98 Oxygen Delivery Method: Room Air Assessment Airway patent: Yes Spontaneous unlabored respirations: Yes Mental status: Awake and Calm nausea: No Vomiting: No Anesthesia Complication: No Fluid Hydration Crystalloid volume administer (ml): 500 Total IV fluid infused: 500 Progress Note Anesthesia document: Postop Eval 1 completed: Yes 03/03/25826 Date Obey Hopkins Signature: Date CC: Signed Normal [facility] MR/[id number] 03-03-2025 MR/POSTOPAN2 [facility] Medical Records Department [address] [place] [address] Anesthesia Postop Eval II 03/03/25 1836 MR#: [id number] Acct: [id number] Name: CELESTINA CHERRY Karmen Rep #: [id number] : 1965 60 From: Salena Mejía CRNA PCP: Dr. Torres Vargas MD Status:[place] [facility] [place] Race: C Location: EN Anesthesia Postop Eval I Sum Postop Eval Completion status Anesthesia document: Postop Eval 1 completed: Yes Anesthesia Postop Eval I Summary Anesthesia Postop Eval I Summary: Anesthesia Postop Eval I: Assessment Summary Airway patent Yes 03/03/25 08:27 [email or web address] Spontaneous unlabored Yes 03/03/25 08:27 [email or web address] respirations Mental status Awake,Calm 03/03/25 08:27 [email or web address] nausea No 03/03/25 08:27 [email or web address] Vomiting No 03/03/25 08:27 [email or web address] Anesthesia Postop Eval I: Fluid Summary Crystalloid volume administer 500 03/03/25 08:27 [email or web address] (ml) Colloids volume administered ( ml) Blood Product volume administered (ml) Total IV fluid infused 500 03/03/25 08:27 [email or web address] Anesthesia Postop Eval I: Summary Notes Anesthesia Complication No 03/03/25 08:27 [email or web address] Anesthesia Complication Comment: Post-operative progress note Anesthesia: Postop Eval II Evaluation Mental status: Awake Pain Level: 0 nausea: No Vomiting: No 07/23/25 1836 Date Salena Mejía FLAME DEGREASER Cosigner Signature: Date CC: Signed Normal [facility] MR/PAT.DORIAN 03-01-2025 MR/PAT.ANE [facility] Medical Records Department [address] [place] [address] PAT - Anesthesia 03/01/25 1414 MR#: [id number] Acct: [id number] Name: CELESTINA CHERRY Rep #: [id number] : 1965 60 From: Jose Eduardo Flores MD PCP: Dr. 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 History - matlab developer Hx Hospitalization No 03/01/25 12:49 Any Problems [...] take am of surgery PONV PONV - matlab developer: PONV - matlab developer Female Yes 03/01/25 12:49 HX of Motion [...] 03/14/22 17:01 Respiratory Assessment Respiratory Assessment - matlab developer: Respiratory Tract Infection Hx - matlab developer Hx Respiratory Tract Infection No 03/01/25 12:49 STOP Sleep Apnea STOP Sleep Apnea - matlab developer: STOP Sleep Apnea - matlab developer Hx Hypertension Yes: ON MED, CONTROLLED 03/01/25 [...] Tobacco Use History Tobacco Use History - matlab developer: Tobacco Use History - matlab developer Tobacco Use Smoking Status Never smoker 03/01/25 12:49 Hx Tobacco Use No 03/01/25 12:49 Years Smoking Packs Smoked per Day Smoking Cessation Date was within the last 15 years Hx Smoking Cessation Date Hx Smoking Cessation Counseling Hematologic Medial History Hematologic Hx - matlab developer: 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 Normal [facility] Microalb:Creat Ratio,Random URon 01-28-2025 MALB:CREAT 63.5 mg/g CRE Normal [facility] Comment on above: Order Comment: Order Date: 11/10/24 Order Info: [id number] - MIALB Result Comment: AMENDED REPORT 01/28/25 0840 MALB:CREAT previously reported as: 635.4 mg/g CRE Performed By: #### L [id number] #### [facility] Laboratory [address] [place], [place] [address]ramez Adkins. [place] [place], [address] Carcinoembryonic Antigenon 0 11-14-2024 CEA 1.1 ng/mL Normal 0.0-4.7 [facility] Comment on above: Order Comment: Order Date: 11/10/24Order Info: [id number] - CEA Result Comment: Nons mokers <3.9 Smokers <5.6 [facility] Electrochemiluminescence Immunoassay (ECLIA) Values obtained with different assay methods or kits cannot be used interchangeably. Results cannot be interpreted as absolute evidence of the presence or absence of malignant disease. Performed at: [address] [id number] [employer] Operator: Medhat Burr PhD, Phone: [phone] Performed By: #### L 500.0180, L501.9983, L3100.2300, L500.4050 ####[facility] [address] [place], [place], [address] Albumin DL <= 20 mg/L (U) [M ass/Vol]Ordered By: Torres Vargas on 11-12-2024 Urine Random Microalbumin 18.3 mg/L NO RANGE EST. [facility] Anion gap in Serum or Plasma Ordered By: Torres Vargas on 11-12-2024 Anion gap [Moles/Vol] 14 mmol/L 5- [facility] BUN/creatinine ratioOrdered By: Torres Vargas on 11-12-2024 Urea nitrogen/Creatinine [Mass ratio] 17.7 mg/mg 10-20 [facility] Bilirubin, totalOrdered By: Torres Vargas on 11-12-2024 Bilirubin [Mass/Vol] 0.66 mg/dL 0.00-1.30 [facility] Calculated very low density lipoprotein (VLDL) cholesterol measurementOrdered By: Torres Vargas on 11-12-2024 Calculated very low density lipoprotein (VLDL) cholesterol measurement 19 mg/dL 5-40 [facility] VLDL Cholesterol 19 mg/dL -40 [facility] Carbon dioxide, total [Moles /volume] in Central venous bloodOrdered By: Torres Vargas on 11-12-2024 CO2 [Moles/Vol] 24.9 mmol/L 21.0-32.0 [facility] Chloride assayOrdered By: Jeff Vargas on 11-12-2024 Chloride [Moles/Vol] 100 mmol/L 98-108 [facility] Comprehensive Metabolic Prof ilon 11-12-2024 GAP 14 Normal 5-15 [facility] Comment on above: Order Comment: Order Date: 11/10/24 Order Info: [id number] - CMP Order Info: [id number] - LIPID Performed By: #### L 500.4100, L501.9985, L3100.2300, L500.4050 #### [facility] Laboratory [address] [place], [address] Albumin [Mass/Vol] 4.4 g/dL Normal 3.4-4.8 [facility] Comment on above: Order Comment: Order Date: 11/10/24 Order Info: [id number] - CMP Order Info: [id number] - LIPID Performed By: #### L 500.4100, L501.9985, L3100.2300, L500.4050 #### [facility] Laboratory [address] [place], [address] Albumin/Globulin [Mass ratio] 1.8 {ratio} Normal 0.9-2.4 [facility] Comment on above: Order Comment: Order Date: 11/10/24 Order Info: [id number] - CMP Order Info: [id number] - LIPID Performed By: #### L 500.4100, L501.9985, L3100.2300, L500.4050 #### [facility] Laboratory [address] [place], [address] ALK PHOS 117 U/L High 35-104 [facility] Comment on above: Order Comment: Order Date: 11/10/24 Order Info: [id number] - CMP Order Info: [id number] - LIPID Performed By: #### L 500.4100, L501.9985, L3100.2300, L500.4050 #### [facility] Laboratory [address] [place], [address] ALT [Catalytic activity/Vol] 22 U/L Normal <=34 [facility] Comment on above: Order Comment: Order Date: 11/10/24 Order Info: [id number] - CMP Order Info: [id number] - LIPID Performed By: #### L 500.4100, L501.9985, L3100.2300, L500.4050 #### [facility] Laboratory [address] [facility], [address] AST [Catalytic activity/Vol] 24 U/L Normal <=31 [facility] Comment on above: Order Comment: Order Date: 11/10/24 Order Info: [id number] - CMP Order Info: [id number] - LIPID Performed By: #### L 500.4100, L501.9985, L3100.2300, L500.4050 #### [facility] Laboratory [address] [place], [address] Bilirubin [Mass/Vol] 0.66 mg/dL Normal 0.00-1.30 [facility] Comment on above: Order Comment: Order Date: 11/10/24 Order Info: [id number] - CMP Order Info: [id number] - LIPID Performed By: #### L 500.4100, L501.9985, L3100.2300, L500.4050 #### [facility] Laboratory [address] [place], [address] BUN/CRE 17.7 RATIO Normal 10-20 [facility] Comment on above: Order Comment: Order Date: 11/10/24 Order Info: [id number] - CMP Order Info: [id number] - LIPID Performed By: #### L 500.4100, L501.9985, L3100.2300, L500.4050 #### [facility] Laboratory [address] [place], [address] Calcium [Mass/Vol] 9.5 mg/dL Normal 7.6-11.0 [facility] Comment on above: Order Comment: Order Date: 11/10/24 Order Info: [id number] - CMP Order Info: [id number] - LIPID Performed By: #### L 500.4100, L501.9985, L3100.2300, L500.4050 #### [facility] Laboratory [address] [place], [address] Chloride [Moles/Vol] 100 mmol/L Normal 98-108 [facility] Comment on above: Order Comment: Order Date: 11/10/24 Order Info: [id number] - CMP Order Info: [id number] - LIPID Performed By: #### L 500.4100, L501.9985, L3100.2300, L500.4050 #### [facility] Laboratory [address] [place], [address] CO2 [Moles/Vol] 24.9 mmol/L Normal 21.0-32.0 [facility] Comment on above: Order Comment: Order Date: 11/10/24 Order Info: [id number] - CMP Order Info: [id number] - LIPID Performed By: #### L 500.4100, L501.9985, L3100.2300, L500.4050 #### [facility] Laboratory [address] [place], [address] Creatinine [Mass/Vol] 0.67 mg/dL Low 0.70-1.20 [facility] Comment on above: Order Comment: Order Date: 11/10/24 Order Info: [id number] - CMP Order Info: [id number] - LIPID Performed By: #### L 500.4100, L501.9985, L3100.2300, L500.4050 #### [facility] Laboratory [address] [place], [address] GFR/1.73 sq M.predicted among non-blacks MDRD (S/P/Bld) [Vol rate/Area] 99 mL/min/{1.73_m2} Normal >60 [facility] Comment on above: Order Comment: Order Date: 11/10/24 Order Info: [id number] - CMP Order Info: [id number] - LIPID Result Comment: mL/m in/1.73m2 CKD-EPI Creatinine Equation (2020) Performed By: #### L 500.4100, L501.9985, L3100.2300, L500.4050 #### [facility] Laboratory [address] [place], [address] Globulin (S) [Mass/Vol] 2.5 g/dL Normal 2.2-4.2 [facility] Comment on above: Order Comment: Order Date: 11/10/24 Order Info: [id number] - CMP Order Info: [id number] - LIPID Performed By: #### L 500.4100, L501.9985, L3100.2300, L500.4050 #### [facility] Laboratory [address] [place], [address] Glucose [Mass/Vol] 132 mg/dL High 70-99 [facility] Comment on above: Order Comment: Order Date: 11/10/24 Order Info: [id number] - CMP Order Info: [id number] - LIPID Performed By: #### L 500.4100, L501.9985, L3100.2300, L500.4050 #### [facility] Laboratory [address] [place], [address] Potassium [Moles/Vol] 4.2 mmol/L Normal 3.3-5.1 [facility] Comment on above: Order Comment: Order Date: 11/10/24 Order Info: [id number] - CMP Order Info: [id number] - LIPID Performed By: #### L 500.4100, L501.9985, L3100.2300, L500.4050 #### [facility] Laboratory [address] [place], [address] Sodium [Moles/Vol] 139 mmol/L Normal 133-145 [facility] Comment on above: Order Comment: Order Date: 11/10/24 Order Info: [id number] - CMP Order Info: [id number] - LIPID Performed By: #### L 500.4100, L501.9985, L3100.2300, L500.4050 #### [facility] Laboratory [address] [place], [address] T PROT 7.0 g/dL Normal 5.9-8.4 [facility] Comment on above: Order Comment: Order Date: 11/10/24 Order Info: [id number] - CMP Order Info: [id number] - LIPID Performed By: #### L 500.4100, L501.9985, L3100.2300, L500.4050 #### [facility] Laboratory [address] [place], [place], [address] Urea nitrogen [Mass/Vol] 12 mg/dL Normal 4-19 [facility] Comment on above: Order Comment: Order Date: 11/10/24 Order Info: [id number] - CMP Order Info: [id number] - LIPID Performed By: #### L 500.4100, L501.9985, L3100.2300, L500.4050 #### [facility] Laboratory [address] [place], [place], [address] Creatinine Unsp time (U) [Ma ss/Vol]Ordered By: Torres Vargas on 11-12-2024 Creatinine (U) [Mass/Vol] 28.80 mg/dL 28.00-217.0 0 [facility] GFR/1.73 sq M.predicted debi g non-blacks MDRD (S/P/Bld) [Vol rate/Area]Ordered By: Torres Vargas on 11-12-2024 Estimated GFR (MDRD) Non-Af Amer 99 >60 [facility] Comment on above: mL/min/1.73m2 CKD-EP I Creatinine Equation (2020) Glomerular filtration rate ( GFR) estimation/1.73 sq m using serum, plasma, or whole bOrdered By: Torres Vargas on 11-12-2024 GFR/1.73 sq M.predicted among non-blacks MDRD (S/P/Bld) [Vol rate/Area] 99 mL/min/{1.73_m2} >60 [facility] Comment on above: mL/min/1.73m2 CKD-EP I Creatinine Equation (2020) Hemoglobin A1con 11-12-2024 HbA1c (Bld) [Mass fraction] 7.1 % Normal <=5.6 [facility] Comment on above: Order Comment: Order Date: 11/10/24 Order Info: [id number] - A1C Performed By: #### L 500.4100, L501.9985, L3100.2300, L500.4050 #### [facility] Laboratory [address] [place], [address] Hemoglobin A1c percentageOrd ered By: Torres Vargas on 11-12-2024 HbA1c (Bld) [Mass fraction] 7.1 % >5.7 [facility] LDL calc ser/plasOrdered By: Torres Vargas on 11-12-2024 Cholesterol in LDL [Mass/Vol] 68 mg/dL [facility] Comment on above: Wpjzjmakpq=990-596 m g/dL & Higher Abhz=035 mg/dL or greater LDL Cholesterol, Calculated 68 mg/dL [facility] Comment on above: Njhrgpbouo=789-805 m g/dL & Higher Fbsd=245 mg/dL or greater Laboratory - Chemistry and C hemistry - challengeOrdered By: Torres Vargas on 11-12-2024 AST [Catalytic activity/Vol] 24 U/L <32 [facility] Lipid Profileon 11-12-2024 CHOL:HDL 2.35 Normal [facility] Comment on above: Order Comment: Order Date: 11/10/24 Order Info: [id number] - CMP Order Info: [id number] - LIPID Performed By: #### L 500.4100, L501.9985, L3100.2300, L500.4050 #### [facility] Laboratory [address] [place], [place], [address] Cholesterol in HDL [Mass/Vol] 65 mg/dL Normal [facility] Comment on above: Order Comment: Order Date: 11/10/24 Order Info: [id number] - CMP Order Info: [id number] - LIPID Result Comment: [place] onal Cholesterol Education Program (NCEP) guidelines: <40 mg/dL: Low HDL-cholesterol (major risk factor for CHD) >= 60 mg/dL: High HDL-cholesterol (negative risk factor for CHD) HDL-cholesterol is affected by a number of factors, e.g. smoking, exercise, hormones, sex and age. Performed By: #### L 500.4100, L501.9985, L3100.2300, L500.4050 #### [facility] Laboratory [address] [place], [address] Cholesterol in LDL [Mass/Vol] 68 mg/dL Normal [facility] Comment on above: Order Comment: Order Date: 11/10/24 Order Info: [id number] - CMP Order Info: [id number] - LIPID Result Comment: Bord ifgbuj=420-420 mg/dL Higher Ghju=914 mg/dL or greater Performed By: #### L 500.4100, L501.9985, L3100.2300, L500.4050 #### [facility] Laboratory [address] [place], [address] Cholesterol in VLDL [Mass/Vol] 19 mg/dL Normal 5-40 [facility] Comment on above: Order Comment: Order Date: 11/10/24 Order Info: [id number] - CMP Order Info: [id number] - LIPID Performed By: #### L 500.4100, L501.9985, L3100.2300, L500.4050 #### [facility] Laboratory [address] [place], [address] Cholesterol [Mass/Vol] 152 mg/dL Normal <=200 [facility] Comment on above: Order Comment: Order Date: 11/10/24 Order Info: [id number] - CMP Order Info: [id number] - LIPID Result Comment: Chol esterol level, Desirable <200 mg/dL Borderline high cholesterol 200-239 mg/dL High cholesterol >=240 mg/dL Recommendations of the NCEP Adult Treatment Panel for the following risk-cutoff thresholds for the [place] population. Performed By: #### L 500.4100, L501.9985, L3100.2300, L500.4050 #### [facility] Laboratory [address] [place], [address] Triglyceride [Mass/Vol] 97 mg/dL Normal [facility] Comment on above: Order Comment: Order Date: 11/10/24 Order Info: [id number] - CMP Order Info: [id number] - LIPID Result Comment: The drugs N-Acetylcysteine and Metamizole may falsely depress this assay. Normal range: <150 mg/dL Borderline High: 150-199 mg/dL High: 200-499 mg/dL Very High: >500 mg/dL Performed By: #### L 500.4100, L501.9985, L3100.2300, L500.4050 #### [facility] Laboratory [address] [place], [address] Microalbumin/creat ratio urO rdered By: Torres Vargas on 11-12-2024 Urine Microalbumin/Creatini ne Ratio 635.4 mg/g CRE [facility] Potassium (Unsp spec) [Mass/ Vol]Ordered By: Torres Vargas on 11-12-2024 Potassium [Moles/Vol] 4.2 mmol/L 3.3-5.1 [facility] Potassium measurement (mass/ volume)Ordered By: Torres Vargas on 11-12-2024 Potassium (Unsp spec) [Mass/Vol] 4.2 mmol/L 3.3-5.1 [facility] Random urine creatinine dwain urement (mass/volume)Ordered By: Torres Vargas on 11-12-2024 Creatinine Unsp time (U) [Mass/Vol] 28.80 mg/dL 28.00-217.0 0 [facility] Screening total cholesterol/ high density lipoprotein (HDL) cholesterol ratioOrdered By: Torres Vargas on 11-12-2024 Cholesterol.total/Cho lesterol in HDL [Mass ratio] 2.35 {ratio} [facility] Serum creatinine measurement (mass/volume)Ordered By: Torres Vargas on 11-12-2024 Creatinine [Mass/Vol] 0.67 mg/dL Low 0.70-1.20 [facility] Serum globulin measurementOr dered By: Torres Vargas on 11-12-2024 Globulin (S) [Mass/Vol] 2.5 g/dL 2.2-4.2 [facility] Serum glucose measurement (m ass/volume)Ordered By: Torres Vargas on 11-12-2024 Glucose [Mass/Vol] 132 mg/dL High 70-99 [facility] Serum or plasma alanine marquez otransferase (ALT) measurementOrdered By: Torres Vargas on 11-12-2024 ALT [Catalytic activity/Vol] 22 U/L <35 [facility] Serum or plasma albumin dwain urement (mass/volume)Ordered By: Torres Vargas on 11-12-2024 Albumin [Mass/Vol] 4.4 g/dL 3.4-4.8 [facility] Serum or plasma albumin/glob ulin mass ratioOrdered By: Torres Vargas on 11-12-2024 Albumin/Globulin [Mass ratio] 1.8 {ratio} 0.9-2.4 [facility] Serum or plasma alkaline jeffrey sphatase measurementOrdered By: Torres Vargas on 11-12-2024 ALP [Catalytic activity/Vol] 117 U/L High 35-104 [facility] Serum or plasma calcium dwain urement (mass/volume)Ordered By: Torres Vargas on 11-12-2024 Calcium [Mass/Vol] 9.5 mg/dL 7.6-11.0 [facility] Serum or plasma carcinoembry onic antigen measurement (mass/volume)Ordered By: Torres Vargas on 11-12-2024 Carcinoembryonic Ag [Mass/Vol] 1.1 ng/mL 0.0-4.7 [facility] Comment on above: Nonsmokers <3.9 Smok ers <5.6[facility] Electrochemiluminescence Immunoassay(ECLIA)Values obtained with different assay methods or kitscannot be used interchangeably. Results cannot beinterpreted as absolute evidence of the presence orabsence of malignant disease.Performed at: [facility] [employer] [id number] Director: Medhat Burr PhD, Phone: [phone] Serum or plasma cholesterol in HDL measurement (mass/volume)Ordered By: Torres Vargas on 11-12-2024 Cholesterol in HDL [Mass/Vol] 65 mg/dL >40 [facility] Comment on above: National Cholesterol Education Program (NCEP) guidelines:<40 mg/dL: Low HDL-cholesterol (major risk factor for CHD)>= 60 mg/dL: High HDL-cholesterol (negative risk factor for CHD)HDL-cholesterol is affected by a number of factors, e.g. smoking, exercise, hormones, sex and age. Serum or plasma cholesterol measurement (mass/volume)Ordered By: Torres Vargas on 11-12-2024 Cholesterol [Mass/Vol] 152 mg/dL <201 [facility] Comment on above: Cholesterol level, D esirable <200 mg/dLBorderline high cholesterol 200-239 mg/dLHigh cholesterol >=240 mg/dLRecommendations of the NCEP Adult Treatment Panel for the following risk-cutoff thresholds for the [place] population. Serum or plasma urea nitroge n measurement (mass/volume)Ordered By: Torres Vargas on 11-12-2024 Urea nitrogen [Mass/Vol] 12 mg/dL 4-19 [facility] Sodium levelOrdered By: Torres Vargas on 11-12-2024 Sodium [Moles/Vol] 139 mmol/L 133-145 [facility] Total proteinOrdered By: Nelda Vargas on 11-12-2024 Protein [Mass/Vol] 7.0 g/dL 5.9-8.4 [facility] Triglycerides measurementOrd ered By: Torres Vargas on 11-12-2024 Triglyceride [Mass/Vol] 97 mg/dL <199 [facility] Comment on above: The drugs N-Acetylcy steine and Metamizole may falsely depress this assay. Normal range: <150 mg/dLBorderline High: 150-199 mg/dLHigh: 200-499 mg/dLVery High: >500 mg/dL Urine albumin measurement wi th detection limit of 20 mg/L or less (mass/volume)Ordered By: Torres Vargas on 11-12-2024 Albumin DL <= 20 mg/L (U) [Mass/Vol] 18.3 mg/L NO RANGE EST. [facility] Basophil percentageOrdered B y: Torres Vargas on 12-02-2023 Bilirubin [Mass/Vol] 0.70 mg/dL 0.20-1.00 [facility] Comment on above: For patients on eltr ombopag therapy, use of Dimension [place] TBIL is not recommended. Chloride [Moles/Vol] 105 mmol/L 98-107 [facility] Glucose [Mass/Vol] 156 mg/dL 74-106 [facility] Comment on above: Fasting Glucose resu lt greater than or equal to 126 mg/dL suggests DIABETES MELLITUS per A.D.A. criteria. Potassium [Moles/Vol] 4.1 mmol/L 3.5-5.1 [facility] Protein [Mass/Vol] 7.1 g/dL 6.4-8.2 [facility] Sodium [Moles/Vol] 139 mmol/L 136-145 [facility] Laboratory - Chemistry and C hemistry - challengeOrdered By: Torres Vargas on 12-02-2023 Albumin/Globulin [Mass ratio] 1.3 {ratio} 0.9-2.4 [facility] ALP [Catalytic activity/Vol] 128 U/L 45-117 [facility] ALT [Catalytic activity/Vol] 43 U/L 13-56 [facility] CO2 [Moles/Vol] 28.0 mmol/L 21.0-32.0 [facility] Globulin (S) [Mass/Vol] 3.1 g/dL 2.2-4.2 [facility] Urea nitrogen/Creatinine [Mass ratio] 19.1 mg/mg 10-20 [facility] No Panel InformationOrdered By: Torres Vargas on 12-02-2023 Estimated GFR (MDRD) Amer 104 mL/min >60 [facility] Comment on above: GFR Calc Estimated GFR (MDRD) Non-Af Amer 86 mL/min >60 [facility] Comment on above: Non- GFR Calc Urine Microalbumin/Creatini ne Ratio 173.1 mg/g CRE <30 [facility] Serum or plasma calcium dwain urement (mass/volume)Ordered By: Torres Vargas on 12-02-2023 Calcium [Mass/Vol] 9.5 mg/dL 8.5-10.1 [facility] Serum or plasma creatinine m easurement (mass/volume)Ordered By: Torres Vargas on 12-02-2023 Creatinine [Mass/Vol] 0.73 mg/dL 0.55-1.02 [facility] Comment on above: The validity of the calculated GFR & GFRAA in patients over 70 years has not been determined. Clinical correlation is essential. Serum or plasma urea nitroge n measurement (mass/volume)Ordered By: Torres Vargas on 12-02-2023 Urea nitrogen [Mass/Vol] 14 mg/dL 7-18 [facility] Thin prep Papanicolaou smear with manual screeningOrdered By: Torres Vargas on 12-02-2023 Thin prep Papanicolaou smear with manual screening 4.0 g/dL 3.2-5.0 [facility] Thin prep Papanicolaou smear with manual screening 22 U/L 15-37 [facility] Thin prep Papanicolaou smear with manual screening 6 5-15 [facility] Thin prep Papanicolaou smear with manual screening 79.3 mg/L NO RANGE EST. [facility] Urine creatinine measurement (mass/volume)Ordered By: Torres Vargas on 12-02-2023 Creatinine (U) [Mass/Vol] 45.80 mg/dL NO RANGE EST. [facility] Whole blood hemoglobin A1c/t otal hemoglobin ratio (mass fraction)Ordered By: Torres Vargas on 12-02-2023 HbA1c (Bld) [Mass fraction] 6.5 % 3.8-5.6 [facility] Comment on above: Normal < 5.7 % Predi abetic 5.7 - 6.4 % Diabetic >or= 6.5 % Please note range changes. Laboratory - Microbiology an d Antimicrobial susceptibilityon 03-14-2022 SARS-CoV-2 (COVID-19) RNA VIVI+probe Ql (Unsp spec) Not detected [facility] Work Phone: No Panel Informationon 03-14 Influenza Types A,B Rapid (Clinic) Not detected [facility] Work Phone: Vital Signs Date Time Vital Sign Value Performing Clinician Ashlii aspen 03-03-2025 08:35-0400 Body temperature 97.2 [degF] Dr. Torres Vargas MD Work Phone: [facility] 03-03-2025 08:35-0400 Diastolic blood pressure 71 mm[Hg] Dr. Torres Vargas MD Work Phone: [facility] 03-03-2025 08:35-0400 Heart rate 75 /min Dr. Torres Vargas MD Work Phone: [facility] 03-03-2025 08:35-0400 Respiratory rate 16 /min Dr. Torres Vargas MD Work Phone: [facility] 03-03-2025 08:35-0400 SaO2% (BldA) [Mass fraction] 97 % Dr. Torres Vargas MD Work Phone: [facility] 03-03-2025 08:35-0400 Systolic blood pressure 125 mm[Hg] Dr. Torers Vargas MD Work Phone: [facility] 03-03-2025 06:38-0400 Body height 167.[address] Torres Vargas MD Work Phone: [facility] 03-03-2025 06:38-0400 Body mass index (BMI) [Ratio] 30.6 kg/m2 Dr. Torres Vargas MD Work Phone: [facility] 03-03-2025 06:38-0400 Body weight [address] Torres Vargas MD Work Phone: [facility] 08-23-2022 16:18-0500 Body height 167.64 cm TORRES VARGAS MD [facility] 08-23-2022 16:18-0500 Body weight 86.36 kg TORRES VARGAS MD [facility] 08-23-2022 16:18-0500 Body weight 30.73 kg/m2 TORRES VARGAS MD [facility] 03-14-2022 17:28-0400 Diastolic blood pressure 78 mm[Hg] Dr. Torres Vargas Work Phone: [facility] Work Phone: 03-14-2022 17:28-0400 Heart rate 80 /min Dr. Torres Vargas Work Phone: [facility] Work Phone: 03-14-2022 17:28-0400 Respiratory rate 14 /min Dr. Torres Vargas Work Phone: [facility] Work Phone: 03-14-2022 17:28-0400 Systolic blood pressure 128 mm[Hg] Dr. Torres Vargas Work Phone: [facility] Work Phone: 03-14-2022 17:01-0400 Body height 167.[address] Torres Vargas Work Phone: [facility] Work Phone: 03-14-2022 17:01-0400 Body mass index (BMI) [Ratio] 30.7 kg/m2 Dr. Torres Vargas Work Phone: [facility] Work Phone: 03-14-2022 17:01-0400 Body temperature 98.3 [degF] Dr. Torres Vargas Work Phone: [facility] Work Phone: 03-14-2022 17:01-0400 Body weight 86.[address] Torres Vargas Work Phone: [facility] Work Phone: 03-14-2022 17:01-0400 SaO2% (BldA) [Mass fraction] 97 % Dr. Torres Vargas Work Phone: [facility] Work Phone: Encounters Encounter Date Encounter Type Care Provider Facility Start: 07-07-2025 ambulatory Torres Vargas Facility:[facility] Start: 06-17-2025 End: 06-17-2025 ambulatory Torres [place] Facility:[facility] Start: 04-22-2025 ambulatory Torres Vargas Facility:[facility] Start: 03-03-2025 ambulatory Torres Vargas Facility:[facility] Start: 03-03-2025 Non-patient / Non-visit Dr. Jesse Alcazar MD -[facility] Start: 03-03-2025 End: 03-03-2025 Admission to same day surgery center Dr. Whitney Alcazar MD -Endoscopy Work Phone: Start: 03-03-2025 End: 03-03-[address] Torres Vargas MD Work Phone: -Endoscopy Start: 11-12-2024 End: 11-12-[address] Torres Vargas MD Work Phone: [facility] Work Phone: Start: 11-12-2024 End: 11-12-[address] Torres Vargas MD -Laboratory, [facility] Start: 11-12-2024 End: 11-12-2024 ambulatory Torres Vargas Facility:[facility] Start: 12-02-2023 End: 12-02-2023 ambulatory [facility] Work Phone: Start: 12-02-2023 End: 12-02-2023 Patient encounter procedure [facility]-Laboratory, [facility] Start: 08-23-2022 End: 08-24-2022 ambulatory TORRES VARGAS MD. Facility: Start: 08-23-2022 End: 08-23-2022 Patient encounter procedure TORRES VARGAS MD [facility] Start: 08-17-2022 ambulatory TORRES VARGAS MD. Facili ty:A Start: 03-22-2022 End: 03-22-[address] Torres Vargas Work Phone: [facility]-Outpatient Breast Imaging Start: 03-14-2022 End: 03-14-[address] Torres Vargas Work Phone: [facility] Start: 12-19-2021 End: 12-19-2021 Patient encounter procedure [facility]-Laboratory, Specimen Procedures Date Procedure Procedure Detail Performing Clinician Start: 03-03-[address] Torres Vargas MD Work Phone: Start: 11-12-[address] Torres crooks MD Work Phone: Comment on above: Nonsmokers <3.9 Smokers <5.6[employer] Electrochemiluminescence Immunoassay(ECLIA)Values obtained with different assay methods or kitscannot be used interchangeably. Results cannot beinterpreted as absolute evidence of the presence orabsence of malignant disease.Performed at: [address] [id number] Director: Medhat Burr PhD, Phone: [phone] Start: 11-12-2024 Urine microalbumin/creatinine ratio measurement Dr. Torres Vargas MD Work Phone: Comment on above: Previous reported result: 635.4 mg/g CRE Edited by: RICK on 01/28/25:0840 AMENDED REPORT 01/28/25 0840 MALB:CREAT previously reported as: 635.4 mg/g CRE Start: 03-22-[address] Torres Vargas Work Phone: Plan of Treatment Date Care Activity Detail Author Start: [facility]-03-[facility]25 [facility] Immunization Date Immunization Notes Care Provider [facility] 11-30-2020 Covid (Pfizer) [facility] 10-27-2020 Covid (Pfizer) [facility] Payers Date Payer Category Payer Self-pay [id number] 2024 Unknown [id number] 2013 Unknown [id number] 1965 Unknown [id number] 2.16.8 [id number] Unknown [id number] 2.16.8 [id number] Unknown [id number] 2.16.8 [id number] Unknown [id number] 2.16.8 [id number] Unknown [id number] 2.16.8 [id number] Unknown [id number] 2.16.8 [id number] Unknown [id number] 2.16.8 [id number] Social History Date Type Detail Facility Start: 02-17-2020 End: 03-14-2022 Tobacco smoking status NHIS Unknown if ever smoked [facility] Start: 03-13-2014 None [facility] Start: 03-13-2014 Spouse/ Signif icant Other [facility] Start: 02-17-2020 Non-smoker [facility] Start: 1965 Sex Assigned At Female [facility] Start: 03-14-2022 End: 03-03-2025 Tobacco smoking status NHIS Never smoked tobacco (finding) [facility] Start: 11-17-2024 Sex Female (finding) [facility] NEGATED: Highlighted row Not [facility] Goals Date Patient Goal Desired Activity /State Mental Status Date Assessment Result Facility 03-03-2025 Cognitive function Voice/Name;Touch/Shaki ng [facility] Work Phone: Clinical Notes 08-23-2022 to 03-03-2025 Note Date & Type Note Facility 03-03-2025 Consult note Note Date/Time March 03, 2025 7:20am [facility] Medical Records Department [address] [place] [address] Pre-Anesthesia Evaluation 03/03/25 0715 MR#: [id number] Acct: [id number] Name: CELESTINA CHERRY Rep #:[id number] : 1965 60 From: Jose Eduardo Flores MD PCP: Dr. Torres Vargas MD Status:REG SDC Y Race: C Location: [place] [address] ASA Classification* ASA Classification ASA Classification: 2 Assessment & Plan Anesthesia* Anesthesia Assessment Anesthesia Assessment: Discussed sedation and/or anesthesia options, risks, benefits, and alternatives with patient/parents/legal guardian/POA. Questions invited. The patient/parents/legal guardian/POA seems to understand and agrees to proceedwith anesthesia plan. Reviewed the physical assessment, medical history, allergy history and patient home medications list prior to surgery/procedure/anesthetic and documented any changes. Performed airway and anesthesia risk assessments. Anesthesia Type Anesthesia Type: MAC History Source History Obtained from:: Patient and Chart Anesthesia Focused Assessment* Temperature: 97.2 F Pulse Rate: 90 Blood Pressure: 141/77 Respiratory Rate: 20 Pulse Ox: 99 Oxygen Delivery Method: Room Air Airway Assessment Mouth opens: >3 cm Mallampati Score: IV Teeth Condition: Caps/Crowns (Patient has couple crowns. They are tight.) and Implants (Left lower implant is tight.) Neck Range of motion (ROM): Full ROM Labs Anesthesia Preop lab: CBC WBC 9.7 K/mm3 (4.4-11.0) 04/25/21 08:04/25/21 RBC 4.37 M/mm3 (4.2-5.4) 04/25/21 08:04/25/21 Hgb 12.8 g/dL (12.0-15.0) 04/25/21 08:26 04/25/21 Hct 38.6 % (37-47) 04/25/21 08:26 04/25/21 Plt Count 227 K/mm3 (150-450) 04/25/21 08:26 04/25/21 CHEMISTRY Potassium 4.2 mmol/L (3.3-5.1) 11/12/24 13:48 11/12/24 Sodium 139 mmol/L (133-145) 11/12/24 13:48 11/12/24 Magnesium 1.8 mg/dL (1.8-2.4) 03/28/15 10:16 03/28/15 BUN 12 mg/dL (4-19) 11/12/24 13:48 11/12/24 Creatinine 0.67 mg/dL (0.70-1.20) L 11/12/24 13:48 Glucose 132 mg/dL (70-99) H 11/12/24 13:48 11/12/24 TSH 1.44 uIU/mL (0.358-3.74) 05/15/23 08:40 COAG Pre-Assessment Diagnosis/Proposed Procedure Planned Operative Procedure(s): COLONOSCOPY-OA Anesthesia History 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 When Was Last Pacemaker Check QUESTION #4 FULL TEXT: You/Your Family Experience fever (hyperthermia) with Anesthesia Last Oral Intake Last Oral intake: Last Oral Intake NPO since 23:30 03/03/25 06:38 Meds taken in AM with sips of water? Meds patient instructed to take am of surgery Any additional information?: Yes Meds taken in AM with sips of water?: Yes Meds patient instructed to take am of surgery: Losartan PONV PONV - matlab developer: PONV - matlab developer Female Yes 03/01/25 12:49 HX of Motion Sickness No 03/01/25 12:49 HX of N/V After Surgery No 03/01/25 12:49 Non-Smoker No 03/01/25 12:49 Duration of Surgery greater No 03/01/25 12:49 than 60 minutes Number of Risk Factors 1 03/01/25 12:49 PONV Score Low Risk 03/01/25 12:49 Height & Weight Height & Weight: Anesthesia: Height & Weight Height 5 ft 6 in 03/03/25 06:38 Weight: 86 kg 03/03/25 06:38 Body Mass Index (BMI) 30.6 03/03/25 06:38 Respiratory Assessment Respiratory Assessment - matlab developer: Respiratory Tract Infection Hx - matlab developer Hx Respiratory Tract Infection No 03/01/25 12:49 STOP Sleep Apnea STOP Sleep Apnea - matlab developer: STOP Sleep Apnea - matlab developer Hx Hypertension Yes: ON MED, CONTROLLED 03/01/25 [...] Tobacco Use History Tobacco Use History - matlab developer: Tobacco Use History - matlab developer Tobacco Use Smoking Status Never smoker 03/01/25 12:49 Hx Tobacco Use No 03/01/25 12:49 Years Smoking Packs Smoked per Day Smoking Cessation Date was within the last 15 years Hx Smoking Cessation Date Hx Smoking Cessation Counseling Hematologic Medial History Hematologic Hx - matlab developer: 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 Specify any problems Hx of Preganancy in last 3 No 03/01/25 12:49 Months Nurse Filling Out Transfusion VCHRISTIN 03/01/25 12:49 & Questions: Date: 03/01/25 03/01/25 12:49 Time: 12:50 03/01/25 12:49 Patient unable to answer at this time (ie. confused, unrespo /Reproduction History /Reproductive History - matlab developer: /Reproductive Hx- matlab developer Hx Now No 03/01/25 12:49 Gestational Age (in weeks): EDC: Hx Hx Para Hx Section SAB No 03/01/25 12:49 Active Medications Active Medications: Current Medications Generic Name Dose Route Start Last Admin Trade Name Freq PRN Reason Stop Dose Admin Lactated Ringer's 1,000 mls @ 15 mls/hr 03/03/25 06:30 03/03/25 06:49 IV 15 mls/hr .Q48H ELEAZAR Administration PFSH Medical History Wears glasses Cancer Arthritis Back pain TIA (transient ischemic attack) Non-smoker Chronic cough Hypertension Family hx of colon cancer Family history of uterine fibroid Contact with and (suspected) exposure to other viral communicable diseases Home Medications ?Medication ?Instructions ?Recorded ?Last Taken ?Type aspirin 81 mg chewable tablet 81 mg PO DAILY@0800 10/1102/25/25 History metformin 500 mg tablet 500 mg PO BIDCM 10/31/13 History losartan 50 mg tablet 50 mg PO DAILY 02/17/2002/10 History psyllium husk 0.52 gram capsule 0.52 gm PO DAILY 02/1603/01/25 History rosuvastatin 5 mg tablet 5 mg PO QHS 02/17/20 5 History saxagliptin 5 mg tablet 5 mg PO DAILY 03/01/2503/02 History Allergy/AdvReac Type Severity Reaction Status Date / Time adhesive Allergy Rash Verified 03/03/25 06:37 naproxen Allergy Rash Verified 03/03/25 06:37 Surgical History Hx of wisdom tooth extraction Hx of dilation and curettage Hx of total knee arthroplasty History of back surgery History of colon resection Hx of hysterectomy Hx of right knee surgery Hx of knee surgery Hx of appendectomy Hx of tonsillectomy Hx of colonoscopy Social History Smoking Status: Never smoker Review of Systems (Anesthesia) ROS Narrative System reviewed and no additional complaints, except as documented. 03/03/25719 <Electronically signed by Jose Eduardo white MD> Date _ Jose Eduardo Flores MD Cosigner Signature: Date CC: ~ Signed [facility] Work Phone: 1(504) 901-302607-23-2025 History and physical note Author [facility] Note Date/Time March 03, 2025 7:39 am [facility] Medical Records Department [address] [place] [address] History & Physical Exam 03/03/25719 MR#: [id number] Acct: [id number] Name: CELESTINA CHERRY Rep #:[id number] : 1965 60 From: Whitney Alcazar MD PCP: Dr. Torres Vargas MD [place] [facility] [place]: [place] [address] HPI - General General Date of Service: 03/03/25 HPI Narrative CELESTINA CHERRY, is a 60 F who presents for surveillance colonoscopy due to history of rectal cancer in 2013 at [facility]?low anterior resection with a diverting ileostomy stage I. Patient's last colonoscopy was in 2019 negative per patient. Patient denies any chronic abdominal pain/nausea/vomiting/reflux. Patient has bowel movements daily denies any blood. [facility] Medical History Wears glasses Cancer Arthritis Back pain TIA (transient ischemic attack) Non-smoker Chronic cough Hypertension Family hx of colon cancer Family history of uterine fibroid Contact with and (suspected) exposure to other viral communicable diseases Home Medications ?Medication ?Instructions ?Recorded ?Last Taken ?Type aspirin 81 mg chewable tablet 81 mg PO DAILY@0800 10/1102/25/25 History metformin 500 mg tablet 500 mg PO BIDCM 10/31/13 History losartan 50 mg tablet 50 mg PO DAILY 02/17/2002/10 History psyllium husk 0.52 gram capsule 0.52 gm PO DAILY 02/1603/01/25 History rosuvastatin 5 mg tablet 5 mg PO QHS 02/17/20 5 History saxagliptin 5 mg tablet 5 mg PO DAILY 03/01/2503/02 History Allergy/AdvReac Type Severity Reaction Status Date / Time adhesive Allergy Rash Verified 03/03/25 06:37 naproxen Allergy Rash Verified 03/03/25 06:37 Surgical History Hx of wisdom tooth extraction Hx of dilation and curettage Hx of total knee arthroplasty History of back surgery History of colon resection Hx of hysterectomy Hx of right knee surgery Hx of knee surgery Hx of appendectomy Hx of tonsillectomy Hx of colonoscopy Social History Smoking Status: Never smoker Past Medical/Surgical History Planned Operation Planned Operative Procedure(s): COLONOSCOPY-OA S.O.S: No Previous Hospitalizations/Surgeries HX Hospitalizations: No HX of Surgeries: tonsillectomy at age 3, childbirthx2, appendectomy in , leftknee arthroplasty/torn miniscus ', hysterectomy except ovaries, colorectal surgery, ileostomy (December 31), rev. ileostomy (February 2014) 02/05/[address] MARTIN Any Problems With Anesthesia: No You/Your Family Experience Fever (Hyperthermia) With Anes: No Cholinesterase deficiency: No Cardiovascular Hx Chest Pain within Last 2 months: No Hx of Irregular Heartbeat and/or Afib: No Hx Heart Attack: No Hx Congestive Heart Failure: No Hx Rheumatic Fever: No Hx Hypertension: Yes (ON MED, CONTROLLED) Hx Internal Defibrillator: No Hx Pacemaker: No Hx Cardiac Catheterization: No Hx Cardiac Surgery/Stents/Etc.: No Hx Stress Test: No Hx Pain in Legs when Walking/Leg Cramps: No Respiratory Chronic Cough: No HX of Shortness of Breath: No Hoarseness: No Hx Chronic Obstructive Pulmonary Disease (COPD): No Hx Asthma: No Hx Emphysema: No Hx Sleep Apnea: No CPAP: No BIPAP: No Hx Respiratory Tract Infection/Cold (presently): No Do You Snore Loudly (louder than talking or can be heard): No Do You Often Feel Tired/ Fatigued/ Sleepy Dring Daytime?: No Has Anyone Observed You Stop Breathing During Sleep?: No Result (for STOP score): Negative Hx Smoking: No Smoking Status: Never smoker Gastrointestinal Controlled With Meds: No Hx Gastrointestinal Disorders: No Hx Gastrointestinal Bleed: No Hx Ulcer: No Hx Hiatal Hernia: No Difficulty Chewing/Swallowing: No Special diet followed at home: Yes (LOW SUGAR) Hx Unplanned Weight Loss of 20#: No HX Unplanned Weight Gain of 20#: No Neurological Hx Seizures: No HX Syncope/Blackout Spells/Unconsciousness: No Hx Transient Ischemic Attacks (TIA): Yes Hx Multiple Sclerosis: No Hx Parkinson's Disease: No Hx Head/Neck Injury: No Hx Headaches: No Hx Back Injury/Pain: Yes (RECENT INJ FOR PAIN) Recent Onset of Speech Difficulty: No Restless Legs: No Does patient have nerve stimulator: No Blood Disorder Hx Leukemia: No Bleeding Tendencies: No Hx Deep Vein Thrombosis: No Hx High Cholesterol: Yes (ON MED) Blood Transmitted Disease: No Hx Hepatitis: No Hx Cirrhosis: No Hx Anemia: No Hx Blood Disorders: No Reproduction : No Is Patient Lactating: No Hx Hysterectomy: Yes Hx Tubal Ligation: No Are You Post Menopause: Yes Genitourinary Hx Renal Disease: No Hx Dialysis: No Musculoskeletal Hx Arthritis: Yes (LT KNEE) Hx Rheumatoid Arthritis: No Hx Gout: No Recent Onset of an Orthopedic Problem: No Endocrine Hx Diabetes: Yes (PRE-DIABETIC) Insulin: No Thyroid Disease: No Hx Steroid Therapy: Yes (INJ PER DR. MARTIN) Psycho/Social Hx Substance Use: No Hx Alcohol Use: No Hx Anxiety: No Hx Depression: No Mental Illness: No Hx Dementia: No Miscellaneous Hx Cancer: Yes (COLO/RECTAL CA DIAGNOSIS 2013) Recent Exposure to Contagious Disease: No Hx of C-Diff: Yes (2013) Any Loose Teeth: No Allergies adhesive Allergy (Verified 03/03/25 06:37) Rash Electrical grounding pad naproxen Allergy (Verified 03/03/25 06:37) Rash Maternal: Hypertension and Stroke Paternal: Diabetes, Stroke and - Sibling: No pertinent history Discharge Is Pt Admitted From a Long-Term, or a Assisted: No After D/C, Where Do you Plan to Go: Return Home From the PAT History Number of Risk Factors: 3 Vital Signs Vital Signs Vital Signs: 03/03/25 06:38 03/03/25 06:38 Temperature 97.2 F L Temperature Source Temporal Pulse Rate 90 Respiratory Rate 20 H Respiratory Pattern Normal Blood Pressure 141/77 H Blood Pressure Mean 98 Blood Pressure Source Monitor Blood Pressure Position Semi-Fowlers Blood Pressure Location Right Arm Pulse Ox 99 Oxygen Delivery Method Room Air Weight Weight: 189 lb 9.561 oz Body Mass Index (BMI) 30.6 Physical Exam Const alert, oriented x3 and no apparent distress HEENT normocephalic and head/scalp atraumatic Resp normal respiratory effort Cardio regular rate GI soft to palpation and non-tender; Negative for non-distended Palpation: Negative for guarding Extremity no clubbing, cyanosis or edema Skin no rashes or lesions noted Neuro CN's II-XII intact bilaterally Psych mental status grossly normal Assessment & Plan Assessment/Plan (1) Personal history of rectal cancer: Surgery Risks - Colonoscopy I discussed with the patient the risks of the procedure: Yes Risks Include but are not Limited To: Risks include but are not limited to: Bleeding, perforation requiring further surgery, inability to complete colonoscopy requiring barium enema. 03/03/25 0757 <Electronically signed by Whitney Alcazar MD> Sandeep Signature (if applicable): CC: Dr. Torres Vargas MD; Dr. Whitney Alcazar MD~ Signed [facility] Work Phone: 1(339) 484-437507-23-2025 Consult note [facility] Medical Records Department [address] [place] [address] Anesthesia Postop Eval I 03/03/25825 MR#: [id number] Acct: [id number] Name: CELESTINA CHERRY Rep #:[id number] : 1965 60 From: Obey Nagel PCP: Dr. Torres Vargas MD Status:REG SDC Y Race: C Location: [place] [address] Anesthesia: Postop Eval I Current Vital Signs Temperature: 97.1 F Pulse Rate: 81 Blood Pressure: 115/74 Respiratory Rate: 16 Pulse Ox: 98 Oxygen Delivery Method: Room Air Assessment Airway patent: Yes Spontaneous unlabored respirations: Yes Mental status: Awake and Calm nausea: No Vomiting: No Anesthesia Complication: No Fluid Hydration Crystalloid volume administer (ml): 500 Total IV fluid infused: 500 Progress Note Anesthesia document: Postop Eval 1 completed: Yes 03/03/25826 > Date _ Obey Hopkins Signature: Date CC: ~ Signed [facility]07-23-2025 Procedure note [facility] Medical Records Department [address] [place] [address] Colonoscopy Report MR#: [id number] Acct: [id number] Name: CELESTINA CHERRY Rep #:[id number] : 1965 60 From: Whitney Alcazar MD PCP: Dr. Torres Vargas MD Status:REG SDC Patient Name: Celestina Cherry Procedure Date: 03/03/2025 7:52 AM Date of : 1965 Age: 60 Procedure: Colonoscopy Indications: High risk colon cancer surveillance: Personal history of colon cancer Providers: Whitney Alcazar MD Referring MD: Torres Vargas Medicines: Monitored Anesthesia Care Patient Profile: This is a 60 year old female. Last Colonoscopy: February 2020. She is status post LAR for rectal cancer 2013. Complications: No immediate complications. Procedure: Pre-Anesthesia Assessment: - Prior to the procedure, a History and Physical was performed, and patient medications and allergies were reviewed. The patient's tolerance of previous anesthesia was also reviewed. The risks and benefits of the procedure and the sedation options and risks were discussed with the patient. All questions were answered, and informed consent was obtained. Prior Anticoagulants: The patient has taken no anticoagulant or antiplatelet agents. ASA Grade Assessment: Per anesthesia. After reviewing the risks and benefits, the patient was deemed in satisfactory condition to undergo the procedure. After I obtained informed consent, the scope was passed under direct vision. Throughout the procedure, the patient's blood pressure, pulse, and oxygen saturations were monitored continuously. The Colonoscope was introduced through the anus and advanced to the cecum, identified by the appendiceal orifice, ileocecal valve and palpation. The colonoscopy was performed without difficulty. The patient tolerated the procedure well. The quality of the bowel preparation was good. Scope In: 8:01:02 AM Scope Withdrawal Time 0 hours 12 minutes 50 seconds Scope Out: 8:18:32 AM Total Procedure Duration Time 0 hours 17 minutes 30 seconds Findings: Hemorrhoids were found on perianal exam. Non-bleeding internal hemorrhoids were found. The hemorrhoids were Grade I (internal hemorrhoids that do not prolapse). There was evidence of a prior end-to-end low-anterior anastomosis in the rectum. This was patent. The entire examined colon appeared normal. Impression: - Hemorrhoids found on perianal exam. - Non-bleeding internal hemorrhoids. - Patent end-to-end low-anterior anastomosis. - The entire examined colon is normal. - No specimens collected. Recommendation: - Discharge patient to home. - Resume previous diet. - Continue present medications. - Await pathology results. - Repeat colonoscopy in 5 years for surveillance. Procedure Code(s): --- Professional --- G0105, PT, Colorectal cancer screening; colonoscopy on individual at high risk Diagnosis Code(s): --- Professional --- Z85.038, Personal history of other malignant neoplasm of large intestine K64.0, First degree hemorrhoids Z98.0, Intestinal bypass and anastomosis status CPT copyright 2021 [employer]. All rights reserved. The codes documented in this report are preliminary and upon roll contour grinder review may be revised to meet current compliance requirements. MD Whitney Patterson MD 03/03/2025 8:24:37 AM This report has been signed electronically. Number of Addenda: 0 Note Initiated On: 03/03/2025 7:52 AM 03/03/2524 Date _ Whitney Alcazar MD Cosigner Signature: Date (if indicated) CC: Dr. Torres Vargas MD; Dr. Whitney Alcazar MD ~ Date Dictated: 03/03/252 Date Transcribed: Supervisor [employer]crete [employer]: TR Signed [facility]07-23-2025 Procedure note [facility] Medical Records Department [address] [place] [address] Operative Report - CC Letter MR#: [id number] Acct: [id number] Name: CELESTINA CHERRY Rep #:[id number] : 1965 60 From: Whitney Alcazar MD PCP: Dr. Torres Vargas MD [place] [facility] [place] Torres Vargas [address] [place] [address] Re : Colonoscopy procedure for Celestina Cherry Dear Dr. Vargas This procedure was performed on Saturday, March 03, 2025. My impressions and recommendations are as follows: Impressions : - Hemorrhoids found on perianal exam. - Non-bleeding internal hemorrhoids. - Patent end-to-end low-anterior anastomosis. - The entire examined colon is normal. - No specimens collected. Recommendations : - Discharge patient to home. - Resume previous diet. - Continue present medications. - Await pathology results. - Repeat colonoscopy in 5 years for surveillance. My findings are described in the full procedure note, which is enclosed. If I can be of further assistance, please feel free to contact me at Doctor phone number(s): , Work: . Sincerely, MD Whitney Patterson MD 03/03/2025 8:24:37 AM This report has been signed electronically. 03/03/25823 Date _ Whitney Alcazar MD Cosigner Signature: Date (if indicated) CC: Dr. Torres Vargas MD; Dr. Whitney Alcazar MD ~ Date Dictated: 03/03/25751 Date Transcribed: Supervisor [employer]: TR Signed [facility]07-23-2025 Evaluation note* Diagnosis Onset Date Resolution Status Admit Date Personal history of rectal cancer [place] March 03, 2025 6:13am [facility] Work Phone: [phone]) 178-530907-23-2025 History and physical note [facility] Medical Records Department [address] [place] [id number] History & Physical Exam 03/03/25719 MR#: [id number] Acct: [id number] Name: CELESTINA CHERRY Rep #:[id number] : 1965 60 From: Whitney Alcazar MD PCP: Dr. Torres Vargas MD Status:[facility] Location: [place] [address] HPI - General General Date of Service: 03/03/25 HPI Narrative CELESTINA CHERRY, is a 60 F who presents for surveillance colonoscopy due to history of rectal cancer in 2013 at [facility]?low anterior resection with a diverting ileostomy stage I. Patient's last colonoscopy was in 2019 negative per patient. Patient denies any chronic abdominal pain/nausea/vomiting/reflux. Patient has bowel movements daily denies any blood. [facility] Medical History Wears glasses Cancer Arthritis Back pain TIA (transient ischemic attack) Non-smoker Chronic cough Hypertension Family hx of colon cancer Family history of uterine fibroid Contact with and (suspected) exposure to other viral communicable diseases Home Medications ?Medication ?Instructions ?Recorded ?Last Taken ?Type aspirin 81 mg chewable tablet 81 mg PO DAILY@0800 10/1102/25/25 History metformin 500 mg tablet 500 mg PO BIDCM 10/31/13 History losartan 50 mg tablet 50 mg PO DAILY 02/17/2002/10 History psyllium husk 0.52 gram capsule 0.52 gm PO DAILY 02/1603/01/25 History rosuvastatin 5 mg tablet 5 mg PO QHS 02/17/20 5 History saxagliptin 5 mg tablet 5 mg PO DAILY 03/01/2503/02 History Allergy/AdvReac Type Severity Reaction Status Date / Time adhesive Allergy Rash Verified 03/03/25 06:37 naproxen Allergy Rash Verified 03/03/25 06:37 Surgical History Hx of wisdom tooth extraction Hx of dilation and curettage Hx of total knee arthroplasty History of back surgery History of colon resection Hx of hysterectomy Hx of right knee surgery Hx of knee surgery Hx of appendectomy Hx of tonsillectomy Hx of colonoscopy Social History Smoking Status: Never smoker Past Medical/Surgical History Planned Operation Planned Operative Procedure(s): COLONOSCOPY-OA S.O.S: No Previous Hospitalizations/Surgeries HX Hospitalizations: No HX of Surgeries: tonsillectomy at age 3, childbirthx2, appendectomy in , leftknee arthroplasty/torn miniscus , hysterectomy except ovaries, colorectal surgery, ileostomy (December 31), rev. ileostomy (February 2014) 02/05/[address] MARTIN Any Problems With Anesthesia: No You/Your Family Experience Fever (Hyperthermia) With Anes: No Cholinesterase deficiency: No Cardiovascular Hx Chest Pain within Last 2 months: No Hx of Irregular Heartbeat and/or Afib: No Hx Heart Attack: No Hx Congestive Heart Failure: No Hx Rheumatic Fever: No Hx Hypertension: Yes (ON MED, CONTROLLED) Hx Internal Defibrillator: No Hx Pacemaker: No Hx Cardiac Catheterization: No Hx Cardiac Surgery/Stents/Etc.: No Hx Stress Test: No Hx Pain in Legs when Walking/Leg Cramps: No Respiratory Chronic Cough: No HX of Shortness of Breath: No Hoarseness: No Hx Chronic Obstructive Pulmonary Disease (COPD): No Hx Asthma: No Hx Emphysema: No Hx Sleep Apnea: No CPAP: No BIPAP: No Hx Respiratory Tract Infection/Cold (presently): No Do You Snore Loudly (louder than talking or can be heard): No Do You Often Feel Tired/ Fatigued/ Sleepy Dring Daytime?: No Has Anyone Observed You Stop Breathing During Sleep?: No Result (for STOP score): Negative Hx Smoking: No Smoking Status: Never smoker Gastrointestinal Controlled With Meds: No Hx Gastrointestinal Disorders: No Hx Gastrointestinal Bleed: No Hx Ulcer: No Hx Hiatal Hernia: No Difficulty Chewing/Swallowing: No Special diet followed at home: Yes (LOW SUGAR) Hx Unplanned Weight Loss of 20#: No HX Unplanned Weight Gain of 20#: No Neurological Hx Seizures: No HX Syncope/Blackout Spells/Unconsciousness: No Hx Transient Ischemic Attacks (TIA): Yes Hx Multiple Sclerosis: No Hx Parkinson's Disease: No Hx Head/Neck Injury: No Hx Headaches: No Hx Back Injury/Pain: Yes (RECENT INJ FOR PAIN) Recent Onset of Speech Difficulty: No Restless Legs: No Does patient have nerve stimulator: No Blood Disorder Hx Leukemia: No Bleeding Tendencies: No Hx Deep Vein Thrombosis: No Hx High Cholesterol: Yes (ON MED) Blood Transmitted Disease: No Hx Hepatitis: No Hx Cirrhosis: No Hx Anemia: No Hx Blood Disorders: No Reproduction : No Is Patient Lactating: No Hx Hysterectomy: Yes Hx Tubal Ligation: No Are You Post Menopause: Yes Genitourinary Hx Renal Disease: No Hx Dialysis: No Musculoskeletal Hx Arthritis: Yes (LT KNEE) Hx Rheumatoid Arthritis: No Hx Gout: No Recent Onset of an Orthopedic Problem: No Endocrine Hx Diabetes: Yes (PRE-DIABETIC) Insulin: No Thyroid Disease: No Hx Steroid Therapy: Yes (INJ PER DR. MARTIN) Psycho/Social Hx Substance Use: No Hx Alcohol Use: No Hx Anxiety: No Hx Depression: No Mental Illness: No Hx Dementia: No Miscellaneous Hx Cancer: Yes (COLO/RECTAL CA DIAGNOSIS 2013) Recent Exposure to Contagious Disease: No Hx of C-Diff: Yes (2013) Any Loose Teeth: No Allergies adhesive Allergy (Verified 03/03/25 06:37) Rash Electrical grounding pad naproxen Allergy (Verified 03/03/25 06:37) Rash Maternal: Hypertension and Stroke Paternal: Diabetes, Stroke and - Sibling: No pertinent history Discharge Is Pt Admitted From a Long-Term, or a Assisted: No After D/C, Where Do you Plan to Go: Return Home From the PAT History Number of Risk Factors: 3 Vital Signs Vital Signs Vital Signs: 03/03/25 06:38 03/03/25 06:38 Temperature 97.2 F L Temperature Source Temporal Pulse Rate 90 Respiratory Rate 20 H Respiratory Pattern Normal Blood Pressure 141/77 H Blood Pressure Mean 98 Blood Pressure Source Monitor Blood Pressure Position Semi-Fowlers Blood Pressure Location Right Arm Pulse Ox 99 Oxygen Delivery Method Room Air Weight Weight: 189 lb 9.561 oz Body Mass Index (BMI) 30.6 Physical Exam Const alert, oriented x3 and no apparent distress HEENT normocephalic and head/scalp atraumatic Resp normal respiratory effort Cardio regular rate GI soft to palpation and non-tender; Negative for non-distended Palpation: Negative for guarding Extremity no clubbing, cyanosis or edema Skin no rashes or lesions noted Neuro CN's II-XII intact bilaterally Psych mental status grossly normal Assessment & Plan Assessment/Plan (1) Personal history of rectal cancer: Surgery Risks - Colonoscopy I discussed with the patient the risks of the procedure: Yes Risks Include but are not Limited To: Risks include but are not limited to: Bleeding, perforation requiring further surgery, inability to complete colonoscopy requiring barium enema. 03/03/25 0739 Cosigner Signature (if applicable): CC: Dr. Torres Vargas MD; Dr. Whitney Alcazar MD~ Signed [facility]07-23-2025 Consult note [facility] Medical Records Department [address] [place] [address] Pre-Anesthesia Evaluation 03/03/25 0715 MR#: [id number] Acct: [id number] Name: CELESTINA CHERRY #:[id number] : 1965 60 From: Jose Eduardo Flores MD PCP: Dr. Torres Vargas MD Status:REG SDC Y Race: C Location: [place] [address] ASA Classification* ASA Classification ASA Classification: 2 Assessment & Plan Anesthesia* Anesthesia Assessment Anesthesia Assessment: Discussed sedation and/or anesthesia options, risks, benefits, and alternatives with patient/parents/legal guardian/POA. Questions invited. The patient/parents/legal guardian/POA seems to understand and agrees to proceedwith anesthesia plan. Reviewed the physical assessment, medical history, allergy history and patient home medications list prior to surgery/procedure/anesthetic and documented any changes. Performed airway and anesthesia risk assessments. Anesthesia Type Anesthesia Type: MAC History Source History Obtained from:: Patient and Chart Anesthesia Focused Assessment* Temperature: 97.2 F Pulse Rate: 90 Blood Pressure: 141/77 Respiratory Rate: 20 Pulse Ox: 99 Oxygen Delivery Method: Room Air Airway Assessment Mouth opens: >3 cm Mallampati Score: IV Teeth Condition: Caps/Crowns (Patient has couple crowns. They are tight.) and Implants (Left lower implant is tight.) Neck Range of motion (ROM): Full ROM Labs Anesthesia Preop lab: CBC WBC 9.7 K/mm3 (4.4-11.0) 04/25/21 08:26 04/25/21 RBC 4.37 M/mm3 (4.2-5.4) 04/25/21 08:26 04/25/21 Hgb 12.8 g/dL (12.0-15.0) 04/25/21 08:26 04/25/21 Hct 38.6 % (37-47) 04/25/21 08:26 04/25/21 Plt Count 227 K/mm3 (150-450) 04/25/21 08:26 04/25/21 CHEMISTRY Potassium 4.2 mmol/L (3.3-5.1) 11/12/24 13:48 11/12/24 Sodium 139 mmol/L (133-145) 11/12/24 13:48 11/12/24 Magnesium 1.8 mg/dL (1.8-2.4) 03/28/15 10:16 03/28/15 BUN 12 mg/dL (4-19) 11/12/24 13:48 11/12/24 Creatinine 0.67 mg/dL (0.70-1.20) L 11/12/24 13:48 Glucose 132 mg/dL (70-99) H 11/12/24 13:48 11/12/24 TSH 1.44 uIU/mL (0.358-3.74) 05/15/23 08:40 COAG Pre-Assessment Diagnosis/Proposed Procedure Planned Operative Procedure(s): COLONOSCOPY-OA Anesthesia History 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 When Was Last Pacemaker Check QUESTION #4 FULL TEXT: You/Your Family Experience fever (hyperthermia) with Anesthesia Last Oral Intake Last Oral intake: Last Oral Intake NPO since 23:30 03/03/25 06:38 Meds taken in AM with sips of water? Meds patient instructed to take am of surgery Any additional information?: Yes Meds taken in AM with sips of water?: Yes Meds patient instructed to take am of surgery: Losartan PONV PONV - matlab developer: PONV - matlab developer Female Yes 03/01/25 12:49 HX of Motion Sickness No 03/01/25 12:49 HX of N/V After Surgery No 03/01/25 12:49 Non-Smoker No 03/01/25 12:49 Duration of Surgery greater No 03/01/25 12:49 than 60 minutes Number of Risk Factors 1 03/01/25 12:49 PONV Score Low Risk 03/01/25 12:49 Height & Weight Height & Weight: Anesthesia: Height & Weight Height 5 ft 6 in 03/03/25 06:38 Weight: 86 kg 03/03/25 06:38 Body Mass Index (BMI) 30.6 03/03/25 06:38 Respiratory Assessment Respiratory Assessment - matlab developer: Respiratory Tract Infection Hx - matlab developer Hx Respiratory Tract Infection No 03/01/25 12:49 STOP Sleep Apnea STOP Sleep Apnea - matlab developer: STOP Sleep Apnea - matlab developer Hx Hypertension Yes: ON MED, CONTROLLED 03/01/25 [...] than talking or can be heard through closeddoors)? 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 Specify any problems Hx of Preganancy in last 3 No 03/01/25 12:49 Months Nurse Filling Out Transfusion VCHRISTIN 03/01/25 12:49 & Questions: Date: 03/01/25 03/01/25 12:49 Time: 12:50 03/01/25 12:49 Patient unable to answer at this time (ie. confused, unrespo /Reproduction History /Reproductive History - matlab developer: /Reproductive Hx- matlab developer Hx Now No 03/01/25 12:49 Gestational Age (in weeks): EDC: Hx Hx Para Hx Section SAB No 03/01/25 12:49 Active Medications Active Medications: Current Medications Generic Name Dose Route Start Last Admin Trade Name Freq PRN Reason Stop Dose Admin Lactated Ringer's 1,000 mls @ 15 mls/hr 03/03/25 06:30 03/03/25 06:49 IV 15 mls/hr .Q48H ELEAZAR Administration PFSH Medical History Wears glasses Cancer Arthritis Back pain TIA (transient ischemic attack) Non-smoker Chronic cough Hypertension Family hx of colon cancer Family history of uterine fibroid Contact with and (suspected) exposure to other viral communicable diseases Home Medications ?Medication ?Instructions ?Recorded ?Last Taken ?Type aspirin 81 mg chewable tablet 81 mg PO DAILY@0800 10/1102/25/25 History metformin 500 mg tablet 500 mg PO BIDCM 10/31/13 History losartan 50 mg tablet 50 mg PO DAILY 02/17/2002/10 History psyllium husk 0.52 gram capsule 0.52 gm PO DAILY 02/1603/01/25 History rosuvastatin 5 mg tablet 5 mg PO QHS 02/17/20 5 History saxagliptin 5 mg tablet 5 mg PO DAILY 03/01/2503/02 History Allergy/AdvReac Type Severity Reaction Status Date / Time adhesive Allergy Rash Verified 03/03/25 06:37 naproxen Allergy Rash Verified 03/03/25 06:37 Surgical History Hx of wisdom tooth extraction Hx of dilation and curettage Hx of total knee arthroplasty History of back surgery History of colon resection Hx of hysterectomy Hx of right knee surgery Hx of knee surgery Hx of appendectomy Hx of tonsillectomy Hx of colonoscopy Social History Smoking Status: Never smoker Review of Systems (Anesthesia) ROS Narrative System reviewed and no additional complaints, except as documented. 03/03/25719 christopher GARNER> Date _ Jose Eduardo Flores MD [facility] Signature: Date CC: ~ Signed [facility]07-23-2025 [facility] Medical Records Department [address] [place] [address] History Physical Exam 03/03/25719 MR#: [id number] Acct: [id number] Name: CELESTINA CHERRY Rep #: [id number] : 1965 60 From: Whitney Alcazar MD PCP: Dr. Torres Vargas MD Status:[facility] Location: [place] [address] HPI - General General Date of Service: 03/03/25 HPI Narrative CELESTINA CHERRY, is a 60 F who presents for surveillance colonoscopy due to history of rectal cancer in 2013 at [facility]???low anterior resection with a diverting ileostomy stage I. Patient's last colonoscopy was in 2019 negative per patient. Patient denies any chronic abdominal pain/nausea/vomiting/reflux. Patient has bowel movements daily denies any blood. [facility] Medical History Wears glasses Cancer Arthritis Back pain TIA (transient ischemic attack) Non-smoker Chronic cough Hypertension Family hx of colon cancer Family history of uterine fibroid Contact with and (suspected) exposure to other viral communicable diseases Home Medications ???Medication ???Instructions ???Recorded ???Last Taken ???Type aspirin 81 mg chewable tablet 81 mg PO DAILY@0800 10/31/1302/25 History metformin 500 mg tablet 500 mg PO BIDCM 10/31/13 03/01/25 History losartan 50 mg tablet 50 mg PO DAILY 02/17/20 03/03/25 H istory psyllium husk 0.52 gram capsule 0.52 gm PO DAILY 02/17/20 03/01/25 History rosuvastatin 5 mg tablet 5 mg PO QHS 02/17/20 03/02/25 Hist ory saxagliptin 5 mg tablet 5 mg PO DAILY 03/01/25 03/02/25 Hi story Allergy/AdvReac Type Severity Reaction Status Date / Time adhesive Allergy Rash Verified 03/03/25 06:37 naproxen Allergy Rash Verified 03/03/25 06:37 Surgical History Hx of wisdom tooth extraction Hx of dilation and curettage Hx of total knee arthroplasty History of back surgery History of colon resection Hx of hysterectomy Hx of right knee surgery Hx of knee surgery Hx of appendectomy Hx of tonsillectomy Hx of colonoscopy Social History Smoking Status: Never smoker Past Medical/Surgical History Planned Operation Planned Operative Procedure(s): COLONOSCOPY-OA S.O.S: No Previous Hospitalizations/Surgeries HX Hospitalizations: No HX of Surgeries: tonsillectomy at age 3, childbirthx2, appendectomy in , left knee arthroplasty/torn miniscus , hysterectomy except ovaries, colorectal surgery, ileostomy (December 31, ), rev. ileostomy (February 2014) 02/05/[address] MARTIN Any Problems With Anesthesia: No You/Your Family Experience Fever (Hyperthermia) With Anes: No Cholinesterase deficiency: No Cardiovascular Hx Chest Pain within Last 2 months: No Hx of Irregular Heartbeat and/or Afib: No Hx Heart Attack: No Hx Congestive Heart Failure: No Hx Rheumatic Fever: No Hx Hypertension: Yes (ON MED, CONTROLLED) Hx Internal Defibrillator: No Hx Pacemaker: No Hx Cardiac Catheterization: No Hx Cardiac Surgery/Stents/Etc.: No Hx Stress Test: No Hx Pain in Legs when Walking/Leg Cramps: No Respiratory Chronic Cough: No HX of Shortness of Breath: No Hoarseness: No Hx Chronic Obstructive Pulmonary Disease (COPD): No Hx Asthma: No Hx Emphysema: No Hx Sleep Apnea: No CPAP: No BIPAP: No Hx Respiratory Tract Infection/Cold (presently): No Do You Snore Loudly (louder than talking or can be heard): No Do You Often Feel Tired/ Fatigued/ Sleepy Dring Daytime?: No Has Anyone Observed You Stop Breathing During Sleep?: No Result (for STOP score): Negative Hx Smoking: No Smoking Status: Never smoker Gastrointestinal Controlled With Meds: No Hx Gastrointestinal Disorders: No Hx Gastrointestinal Bleed: No Hx Ulcer: No Hx Hiatal Hernia: No Difficulty Chewing/Swallowing: No Special diet followed at home: Yes (LOW SUGAR) Hx Unplanned Weight Loss of 20#: No HX Unplanned Weight Gain of 20#: No Neurological Hx Seizures: No HX Syncope/Blackout Spells/Unconsciousness: No Hx Transient Ischemic Attacks (TIA): Yes Hx Multiple Sclerosis: No Hx Parkinson's Disease: No Hx Head/Neck Injury: No Hx Headaches: No Hx Back Injury/Pain: Yes (RECENT INJ FOR PAIN) Recent Onset of Speech Difficulty: No Restless Legs: No Does patient have nerve stimulator: No Blood Disorder Hx Leukemia: No Bleeding Tendencies: No Hx Deep Vein Thrombosis: No Hx High Cholesterol: Yes (ON MED) Blood Transmitted Disease: No Hx Hepatitis: No Hx Cirrhosis: No Hx Anemia: No Hx Blood Disorders: No Reproduction : No Is Patient Lactating: No Hx Hysterectomy: Yes Hx Tubal Ligation: No Are You Post Menopause: Yes Genitourinary Hx Renal Disease: No Hx Dialysis: No Musculoskeletal Hx Arthritis: Yes (LT K (more content not included)...[facility] 08-23-2022 Note Nutrition Assessment: Food intake, Carbohydrates Nutrition Diagnosis: Inconsistent carbohydrate intake related to food and nutrition knowledge deficit as evidenced by patient s 24-hour food recall presenting with consumption of extra-large portionsof carbohydrate-rich foods, >45 g at some meals/snacks, skipping meals, dining out or consuming fast food > 4 times/week, eating meals/snacks at sporadic times throughout the day and patient has an A1c of __. Nutrition Intervention: The dietitian provided diabetes medical nutrition therapy (MNT) using the plate method/carb-counting method, provided appropriate portion sizes using food models and measuringcups, provided individualized meal planning methods, and recommended weight loss/weight maintenancefollowing a reduced calorie balanced meal pattern. For [...] sugars and evaluate patient goals PRN or atfollow-up appointment. Dietitian provided medical nutrition therapy services via a telehealth online video visit. Patient authorized consent for dietitian services. [facility] Author Obey Nagel [facility] Note Date/Time March 03, 2025 8:27 am [facility] Medical Records Department [address] [place] [address] Anesthesia Postop Eval I 03/03/25825 MR#: [id number] Acct: [id number] Name: CELESTINA CHERRY Rep #:[id number] : 1965 60 From: Obey Nagel PCP: Dr. Torres Vargas MD Status:REG SDC Y Race: C Location: [place] [address] Anesthesia: Postop Eval I Current Vital Signs Temperature: 97.1 F Pulse Rate: 81 Blood Pressure: 115/74 Respiratory Rate: 16 Pulse Ox: 98 Oxygen Delivery Method: Room Air Assessment Airway patent: Yes Spontaneous unlabored respirations: Yes Mental status: Awake and Calm nausea: No Vomiting: No Anesthesia Complication: No Fluid Hydration Crystalloid volume administer (ml): 500 Total IV fluid infused: 500 Progress Note Anesthesia document: Postop Eval 1 completed: Yes 03/03/25826 <Electronically signed by Obye Nagel > Date _ Obey Hopkins Signature: Date CC: ~ Signed [facility] Work Phone: Evaluation + Plan note No data available for this section [facility] Evaluation noteNo assessment information available [facility] Work Phone: Evaluation note* Diagnosis Onset Date Resolution Status Contact with and (suspected) exposure to other viral communicable diseases acute [facility] Work Phone: Hospital Discharge instructions No data available for this section [facility] Reason for referral (narrative)No reason for referral information availableWMercy Health Work Phone: Chief Complaint and Reason for Visit Chief Complaint SHAVE BX R CHEST/ PE RSISTENT SKIN LESION Chief Complaint SHAVE BX R CHEST/ PE RSISTENT SKIN LESION PCR COVID TEST/SYMPTOMATIC/ILL X2DAYS screening Reason for Visit Contact with and (marie spected) exposure to other viral communicable diseases Reason for Visit Admit Date Personal history of rectal cancer February 102024 6:13am Family History No Family History Records Found Relationship Condition Age at Onset Recorded Date/T waqar Unknown Family History?Diabetes, Stroke, - Unknow n February 17, 2020 11:53am Family History?Hypertension, Stroke Unkno wn March 13, 2014 7:56pm Family History?Hypertension, Stroke Unkno wn February 17, 2020 11:53am Family History?No pertinent history Unkno wn February 17, 2020 11:53am Relationship Condition Age at Onset Recorded Date/T waqar Unknown Family History?Diabetes, Stroke, - Unknow n March 03, 2025 7:23am Family History?Hypertension, Stroke Unkno wn March 13, 2014 7:56pm Family History?Hypertension, Stroke Unkno wn March 03, 2025 7:23am Family History?No pertinent history Unkno wn March 03, 2025 7:23am Advance Directives No Advanced Directives Records Found Advance Directive Response Recorded Date/ Time Advance Directives Yes March 13 8:28pm Living Will Yes February 17, 2020 1 1:53am Power of Fur Scraper Yes February 17, 2020 11:53am Advance Directive Response Recorded Date/ Time Advance Directives Yes March 13 8:28pm Advance Directive Response Recorded Date/ Time Do you have a Healthcare Power of Fur Scraper? Yes March 01, 2025 12:49pm Advance Directives Yes March 13 8:28pm Summary Purpose Additional Source Comments Goals (unrecognized section and content) Goals may be documented in a n alternate sectionGoals may be documented in an alternate section No data available for this sectionGoals may be documented in an alternate sectionGoals may be documented in an alternate section INFORMATION SOURCE (unrecogn ized section and content) DATE CREATED AUTHOR 09/28/2022 [facility] ([place]) DATE CREATED AUTHOR AUTHOR'S ORGANIZ ATION 06/19/2025 [facility] Care Teams (unrecognized sec tion and content) Team Status: Active Member Role Status Dates Dr. Torres Vargas MD Family Provider Active Dr. Torres Vargas MD Primary Care Provider Active Team Status: Inactive Member Role Status Dates Dr. Torres Vargas MD Primary Care Provider, Attending artie Active Team Status: Inactive Member Role Status Dates Dr. Torres Vargas MD Primary Care Provider Active Start: November 12, 2024 End: November 12, 2024 Dr. Torres Vargas MD Attending Provider Active St art: November 12, 2024 End: November 12, 2024 Dr. Torres Vargas MD Referring Provider Active St art: November 12, 2024 End: November 12, 2024 Team Status: Active Member Role/Relationship Status Dates Dr. Torres Vargas MD Primary Care Provider Active Team Status: Inactive Member Role/Relationship Status Dates Dr. Torres Vargas MD Primary Care Provider Active Start: November 12, 2024 End: November 12, 2024 Dr. Torres Vargas MD Attending Provider Active St art: November 12, 2024 End: November 12, 2024 Dr. Torres Vargas MD Referring Provider Active St art: November 12, 2024 End: November 12, 2024 Team Status: Inactive Member Role/Relationship Status Dates Dr. Torres Vargas MD Primary Care Provider Active Start: March 03, 2025 End: March 03, 2025 Dr. Torres Vargas MD Referring Provider Active St art: March 03, 2025 End: March 03, 2025 Dr. Whitney Alcazar MD Attending Provider Active Start: March 03, 2025 End: March 03, 2025 Team Status: Active Member Role/Relationship Status Dates Dr. Torres Vargas MD Primary Care Provider Active Start: March 03, 2025 Dr. Torres Vargas MD Referring Provider Active St art: March 03, 2025 Dr. Whitney Alcazar MD Attending Provider Active Start: March 03, 2025 Dr. Whitney Alcazar MD Other Provider Active S tart: March 03, 2025 FOR RECORDS PERTAINING TO PATIENTS WHO ARE [...] BE BASED ON THE PRIMARY CLINICAL RECORDS. [facility] [employer] [facility]. provides no warranty or guarantee of the accuracy or completeness of information in this document.
--- NOTE | 2025-07-07 12:11 | STRESSREP ---
Stress Test Report Date: 07/07/2025 Procedure: Exercise tolerance test/imaging study Indications: Coronary artery disease Consent: Per the patient Procedure: The patient exercised on a Zan protocol for 8 minutes achieving a peak heart rate of 164 bpm (103% predicted maximal heart rate) with a peak blood pressure 194/84 mmHg and a peak MET capacity of 10.1 METs. The baseline ECG demonstrated sinus rhythm. The peak exercise ECG showed sinus tachycardia with no ischemic changes. Rare PVC noted. The functional capacity was considered excellent for age. There was no complaint of chest discomfort during exercise or recovery. The examination was discontinued secondary to target heart rate being achieved. The patient was injected with 11.4 mCi of technetium 99m Cardiolite and subsequently rest SPECT Cardiolite nuclear imaging was obtained in the horizontal long, vertical long, and short axis views. Post-exercise, the patient was injected with 33.4 mCi of technetium 99m Cardiolite and subsequently stress SPECT Cardiolite nuclear imaging was obtained in the horizontal long, vertical long, and short axis views. A gated Cardiolite study at peak stress was obtained. Rest and stress SPECT Cardiolite nuclear imaging status post realignment, normalization, and attenuation correction, demonstrates the appearance of relative uniform tracer uptake and myocardial perfusion appearing within normal limits. There is end systolic thickening and brightening. The gated Cardiolite study demonstrates myocardial thickening and inward wall motion. The reported LVEF is 72%. Impression: 1. Technically adequate (percent predicted maximal heart rate greater than 85%) exercise tolerance test 2. Peak exercise ECG with no ischemic changes 3. There were no cardiac dysrhythmias pretest, during exercise, or recovery 4. Rest and stress SPECT Cardiolite nuclear imaging demonstrate relative uniform tracer uptake and myocardial perfusion appearing within normal limits. 5. The gated Cardiolite study reports an LVEF of 72%. This note was generated with [employer] software. It may contain incorrect words, spelling, and punctuation that were not noted in checking the note before signing.
== END | disposition home or self-care (01) ==
LOC: CVS 06:45
PROVIDERS: PCP Family Medicine; Referring Provider Internal Medicine Cardiovascular Disease; Visit Provider Internal Medicine Cardiovascular Disease
DX: I25.10 Atherosclerotic heart disease of native coronary artery without angina pectoris (principal); E11.9 Type 2 diabetes mellitus without complications; R06.09 Other forms of dyspnea; I10 Essential (primary) hypertension; E78.5 Hyperlipidemia, unspecified
CPT/HCPCS: 78452; 93017; 93308; A9500; A4216